=== PATIENT | male | born 1985 | race Caucasian/White ===

== ENCOUNTER → 2016-08-21 | Emergency (ER) | payer MEDICARE, MEDICAID ==
[~2016-08-21] VITALS: Ht 170.2 cm; Wt 120.2 kg
[~2016-08-21] MED LIST: ALBU17AE23 IH; ALBU8.5H4 IH; ARIP300S IM; ATEN25TA PO; BUSP10TA95 GT; CEPH-507 PO; CEPHALEXIN 250 MG (KEFLEX) CAP PO ONE; DOXY100C2 PO; ESOM20CA PO; ESOM20CA37 PO; ESOM20SU PO; FENO160T PO; INVEGA IM; LIDOCAINE 2% 20 ML (XYLOCAINE) VIAL INJ ONE; LISI10TA2 PO; MUPI22OI TP; NAPR-243 PO; OMEP5POW2 MC; PALI156D IM; PRD20T PO; SULF-222 PO; SULF1TAB35 PO; SULF1TAB7 PO; TERB30CR15 TP
--- NOTE | 2016-08-21 16:51 | ED Upper Extremity ---
General Chief Complaint: Laceration Stated Complaint: R HAND LACERATION Nursing Triage Note: PT STATES HE WAS PULLING TIN OUT OF HIS NEIGHBORS YARD AND CUT HIS RIGHT THUMB Nursing Sepsis Screen: No Definite Risk Source: patient Exam Limitations: no limitations History of Present Illness Time seen by provider: 16:48 Initial Comments To ER with a laceration to the dorsal aspect of the right thumb that occurred about 30 minutes prior to arrival while he was pulling tin out of his neighbor' s yard. Tetanus is up-to-date. Onset: just prior to arrival Severity: moderate Pain/Injury Location: right thumb Modifying Factors: Worse With Movement Allergies and Home Medications Allergies Coded Allergies: No Known Drug Allergies (Unverified , 08/21/16) Home Medications Lisinopril 10 Mg Tablet, 10 MG PO DAILY, (Reported) Omeprazole 5 Gm Powder, 5 GM MC, (Reported) Constitutional: see HPI EENTM: see HPI Respiratory: no symptoms reported Cardiovascular: no symptoms reported Genitourinary: no symptoms reported Musculoskeletal: see HPI Skin: see HPI Psychiatric/Neurological: No Symptoms Reported Past Axdyfgc-Vjmnck-Vzsznu Hx Patient Social History Recent Foreign Travel: No Contact w/Someone Who Travel: No Recent Infectious Disease Expo: No Immunizations Up To Date Tetanus Booster (TDap): Less than 5yrs Surgeries HX Surgeries: Yes Surgeries: Orthopedic Respiratory Hx Respiratory Disorders: Yes Respiratory Disorders: Emphysema Cardiovascular Hx Cardiac Disorders: Yes Cardiac Disorders: High Cholesterol, Hypertension Neurological Hx Neurological Disorders: No Reproductive System Hx Reproductive Disorders: No Sexually Transmitted Disease: No HIV/AIDS: No Genitourinary Hx Genitourinary Disorders: No Gastrointestinal Hx Gastrointestinal Disorders: Yes Gastrointestinal Disorders: Gastroesophageal Reflux, Ulcer Musculoskeletal Hx Musculoskeletal Disorders: No Endocrine Hx Endocrine Disorders: No HEENT HX ENT Disorders: No Cancer Hx Cancer: No Psychosocial Hx Psychiatric Problems: No (has delusions that [employer] injected him w/HIV) Behavioral Health Disorders: Schizophrenia Integumentary HX Skin/Integumentary Disorder: No Blood Transfusions Hx Blood Disorders: No Family Medical History Significant Family History: No Pertinent Family Hx Family Medial History: Diabetes mellitus Maternal Grandfather, Onset:Unknown FH: heart disease Maternal Grandfather, Onset:Unknown Gout Maternal Grandfather, Onset:Unknown Hypertension Maternal Grandfather, Onset:Unknown Uncle, Onset:Unknown Physical Exam Vital Signs Vital Sign - Last 12Hours 08/21/16 16:44 Temp 98.2 Pulse 111 Resp 20 B/P (MAP) 135/81 Pulse Ox 97 O2 Delivery Room Air Capillary Refill : Less Than 3 Seconds General Appearance: WD/WN, no apparent distress HEENT: PERRL/EOMI, normal ENT inspection Neck: non-tender, full range of motion Respiratory: normal breath sounds, no respiratory distress, no accessory muscle use Gastrointestinal: non tender, soft Shoulder: normal inspection, non-tender Elbow/Forearm: normal inspection, Right Wrist: Yes normal inspection, Yes non-tender Hand: Right, laceration (2 cm laceration to the dorsal aspect of the right thumb. This does cross the IP joint. No injury to the nail. This will require suturing. He is able to fully flex and extend the thumb.) Neurologic/Psychiatric: alert, normal mood/affect, oriented x 3 Skin: normal color, warm/dry Laceration Repair : Wound Location: Upper Extremities Wound Length (cm): 2.5 Wound's Depth, Shape: irregular, sub Q Irrigated w/ Saline (ccs): 30 Suture: Prolene Suture Size: 4-0 Number of Sutures: 5 Layer Closure?: 1 Number Deep Layer Sutures: 0 Progress Anesthetized, scrubbed with chlorhexidine/saline solution then irrigated with the same, then closed with 5 simple a ruptured sutures size 4-0 Prolene. Progress/Results/Core Measures Results/Orders My Orders Orders - KJ YANG APRN Lidocaine 2% Injection 20 Ml (Xylocaine (08/21/16 17:00) Cephalexin Capsule (Keflex Capsule) (08/21/16 17:00) Vital Signs/I&O Vital Sign - Last 12Hours 08/21/16 16:44 Temp 98.2 Pulse 111 Resp 20 B/P (MAP) 135/81 Pulse Ox 97 O2 Delivery Room Air Blood Pressure Mean: 99 Departure Impression Impression: Primary Impression: Finger laceration Disposition: 01 HOME, SELF-CARE Condition: Stable Departure-Patient Inst. Decision time for Depature: 16:50 Referrals: NO,LOCAL PHYSICIAN (PCP/Family) Primary Care Physician Patient Instructions: Laceration Repair With Stitches (DC) Add. Discharge Instructions: 1. Return to ER to have the stitches removed in 10 days 2. Antibiotics as directed 3. Follow-up with your doctor next week 4. You may get the hand wet allowing water to run over it in the sink starting tomorrow. However do not soak it in water such as a bathtub, swimming pool, [place] or hot tub until the stitches have been removed All discharge instructions reviewed with patient and/or family. Voiced understanding. Scripts Esomeprazole Magnesium (Esomeprazole Magnesium) 20 Mg Capsule.dr 20 MG PO DAILY, #14 CAP Prov: KJ YANG APRN 08/21/16 Lisinopril (Lisinopril) 10 Mg Tablet 10 MG PO DAILY, #14 TAB Prov: KJ YANG APRN 08/21/16 Cephalexin (Keflex) 500 Mg Capsule 500 MG PO TID, #15 CAP Prov: KJ YANG APRN 08/21/16 KJ YANG APRN August 21, 2016 16:51
[2016-08-21 17:01] VITALS: BP 130/87
== END | disposition home or self-care (01) ==
LOC: EDUNIT# 16:36 → ER 16:38
DX: S61.012A Laceration without foreign body of left thumb without damage to nail, initial encounter (principal); W45.8XXA Other foreign body or object entering through skin, initial encounter; Y92.017 Garden or yard in single-family (private) house as the place of occurrence of the external cause; Y99.8 Other external cause status

== ENCOUNTER 2016-08-29 21:35 | Emergency (ER) | payer MEDICAID, MEDICARE ==
[~2016-08-29] VITALS: Ht 172.7 cm; Wt 117.9 kg
[~2016-08-29 21:35] MED LIST changes: -CEPHALEXIN 250 MG (KEFLEX) CAP PO ONE; -LIDOCAINE 2% 20 ML (XYLOCAINE) VIAL INJ ONE
[2016-08-29] MEDS ORDERED: CLIN150C17 PO (21:59)
[2016-08-29] MEDS ORDERED: TERBIN250T PO (22:00)
--- NOTE | 2016-08-29 22:01 | ED Integumentary General ---
General Chief Complaint: Skin/Wound Problems Stated Complaint: REMOVING OF STICHES Nursing Triage Note: PT TO ED 8 W/ C/O POSSIBLE ABSCESSES TO BILAT GROIN AREA ONSET "FOR A YEAR AND A HALF". PT REPORTS HAS BEEN SEEN HERE FOR SAME C/O IN PAST BUT DENIES F/U W/ PCP. ALSO REPORTS HE HAS SUTURES THAT NEED REMOVED BUT HE STATES HE "CAN DO THAT HIMSELF" Source: patient, RN notes reviewed Exam Limitations: no limitations History of Present Illness Time seen by provider: 21:45 Initial Comments Patient presents initially to have his stitches removed from his right thumb that were placed approximately 9 days ago. While here, patient wants to have some lumps checked that he has had for a year and half in his B/L groin area. Had what sounded like an abscess I&D's here in past. States it can't be a STD because he hasn't had sexual relations in over 5 years. Denies a penile discharge. Timing/Duration: other (as above) Possible Cause: no cause identified Associated Symptoms: swelling/mass/lumps Allergies and Home Medications Allergies Coded Allergies: No Known Drug Allergies (Unverified , 08/21/16) Home Medications Cephalexin 500 Mg Capsule, 500 MG PO TID, #15 Prescribed by: KJ YANG on 08/21/16 1702 Clindamycin HCl 150 Mg Capsule, 300 MG PO QID, #80 Ref 0 Prescribed by: INDER WILSON on 08/29/162158 Esomeprazole Magnesium 20 Mg Capsule.dr, 20 MG PO DAILY, #14 Prescribed by: KJ YANG on 08/21/16 1702 Lisinopril 10 Mg Tablet, 10 MG PO DAILY, (Reported) Lisinopril 10 Mg Tablet, 10 MG PO DAILY, #14 Prescribed by: KJ YANG on 08/21/16 1702 Omeprazole 5 Gm Powder, 5 GM MC, (Reported) Terbinafine 250 Mg Tab, 250 MG PO DAILY, #7 Ref 00 Prescribed by: INDER WILSON on 08/29/160 Constitutional: see HPI Genitourinary: see HPI, other (knots/lumps in his B/L groin region) Skin: see HPI, other (healing laceration right thumb) All Other Systems Reviewed Negative Unless Noted: Yes (Negative excepted noted.) Past Qeqlbav-Udyiwg-Wuedwo Hx Patient Social History Alcohol Use: Denies Use Recreational Drug Use: No (etoh) Smoking Status: Current Everyday Smoker Type Used: Cigars 2nd Hand Smoke Exposure: Yes Recent Foreign Travel: No Contact w/Someone Who Travel: No Recent Infectious Disease Expo: No Recent Hopitalizations: No Immunizations Up To Date Tetanus Booster (TDap): Less than 5yrs Seasonal Allergies Seasonal Allergies: No Surgeries HX Surgeries: Yes Surgeries: Orthopedic Respiratory Hx Respiratory Disorders: Yes Respiratory Disorders: Emphysema Cardiovascular Hx Cardiac Disorders: Yes Cardiac Disorders: Hypertension Neurological Hx Neurological Disorders: No Reproductive System Hx Reproductive Disorders: No Sexually Transmitted Disease: No HIV/AIDS: No Genitourinary Hx Genitourinary Disorders: No Gastrointestinal Hx Gastrointestinal Disorders: Yes Gastrointestinal Disorders: Gastroesophageal Reflux, Ulcer Musculoskeletal Hx Musculoskeletal Disorders: No Endocrine Hx Endocrine Disorders: No HEENT HX ENT Disorders: No Cancer Hx Cancer: No Psychosocial Hx Psychiatric Problems: No (has delusions that [employer] injected him w/HIV) Behavioral Health Disorders: Schizophrenia Integumentary HX Skin/Integumentary Disorder: No Blood Transfusions Hx Blood Disorders: No Family Medical History Significant Family History: No Pertinent Family Hx Family Medial History: Diabetes mellitus Maternal Grandfather, Onset:Unknown FH: heart disease Maternal Grandfather, Onset:Unknown Gout Maternal Grandfather, Onset:Unknown Hypertension Maternal Grandfather, Onset:Unknown Uncle, Onset:Unknown Physical Exam Vital Signs Vital Sign - Last 12Hours 08/29/16 21:39 Temp 98.0 Pulse 133 Resp 24 Pulse Ox 99 O2 Delivery Room Air Capillary Refill : Less Than 3 Seconds General Appearance: WD/WN, no apparent distress Cardiovascular: tachycardia Respiratory: no respiratory distress Neurologic/Psychiatric: no motor/sensory deficits, alert, other (almost seemed manic, or tweaking) Skin: other (laceration appears to be red and quite possibly infected. Going to wait to take the sutures out until he's been on some antibiotics for awhile.) Skin Problem Location: other (groin area) Skin Problem Character: other (findings consistent c/ inguinal adenopathy; also appears to have moderate tinea cruris present; hygiene is fair @ best) Lymphatic: inguinal node tender (R), inguinal node tender (L) Laceration Repair : Suture Size: 4-0 Progress/Results/Core Measures Results/Orders Vital Signs/I&O Vital Sign - Last 12Hours 08/29/16 08/29/16 21:39 22:10 Temp 98.0 Pulse 133 0 Resp 24 0 B/P (MAP) Pulse Ox 99 0 O2 Delivery Room Air Departure Impression Impression: Primary Impression: Inguinal adenopathy Additional Impressions: Tinea cruris Laceration Disposition: HOME, SELF-CARE Condition: Stable Departure-Patient Inst. Decision time for Depature: 21:56 Referrals: BAYLEE BLACKMON MD Patient Instructions: Jock Itch (DC), LYMPH NODE INFECTION, Laceration Infection (DC) Add. Discharge Instructions: All discharge instructions reviewed with patient and/or family. Voiced understanding. RETURN IN 5 DAYS TO HAVE YOUR THUMB LACERATION RECHECKED TO SEE IF CAN REMOVE YOUR STITCHES @ THAT TIME. Scripts Terbinafine (Lamisil) 250 Mg Tab 250 MG PO DAILY, #7 TAB 00 Refills Prov: INDER WILSON DO 08/29/16 Clindamycin HCl (Clindamycin HCl) 150 Mg Capsule 300 MG PO QID, #80 CAP 0 Refills Prov: INDER WILSON DO 08/29/16 INDER WILSON DO August 29, 2016 22:01
[2016-08-29 22:10] VITALS: BP 0/0
== END 2016-08-29 22:10 | disposition home or self-care (01) ==
LOC: EDUNIT# 21:35 → ER 21:38
DX: R59.0 Localized enlarged lymph nodes (principal); B35.6 Tinea cruris; S61.011D Laceration without foreign body of right thumb without damage to nail, subsequent encounter; I10 Essential (primary) hypertension; F17.210 Nicotine dependence, cigarettes, uncomplicated; Z79.899 Other long term (current) drug therapy
CPT/HCPCS: 99281

== ENCOUNTER 2017-03-10 14:53 | Emergency (ER) | payer MEDICARE ==
[~2017-03-10] VITALS: Ht 172.7 cm; Wt 117.9 kg
[~2017-03-10 14:53] MED LIST changes: +CLIN150C17 PO; +HALDOL; +NAPR500T4 PO; +TERBIN250T PO
--- OUTSIDE RECORDS SUMMARY | 2017-03-10 15:00 | XMS REPORT | Continuity of Care Document ---
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 Phone [employer] Unavailable Unavailable Problems Problem Status Onset Date Classification Date Reported Comments Source No data available for this section Problem 09/26/2016 [facility] Medications Allergies, Adverse Reactions, Alerts Immunizations Immunization Date Given Site Status Last Updated Comments Source No data available for this section No data available for this section [facility] Results Vital Signs Encounters Location Location Details Encounter Type Encounter Number Reason For Visit Attending Provider ADM Date DC Date Status Source [facility] [id number] Emergency [id number] Osama Olvin 09/21/2016 09/21/2016 Active [facility] Procedures Procedure Code Date Perfomer Comments Source No data available for this section [facility] Plan of Care Social History Assessment and Plan Family History Value Date Source Advance Directives Order Name Results Value Date Source
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
[2017-03-10] MEDS ORDERED: CEPH-507 PO (15:12)
[2017-03-10] MEDS ORDERED: CEPHALEXIN 250 MG (KEFLEX) CAP PO ONE (15:15)
[2017-03-10] MEDS ORDERED: ALPRAZolam 0.5 MG (XANAX) TAB PO SCH (15:15)
[2017-03-10 15:21] VITALS: BP 197/103
== END 2017-03-10 15:21 | disposition home or self-care (01) ==
LOC: EDUNIT# 14:53 → ER 14:55
DX: S00.03XA Contusion of scalp, initial encounter (principal); F20.9 Schizophrenia, unspecified; K21.9 Gastro-esophageal reflux disease without esophagitis; I10 Essential (primary) hypertension; Z87.11 Personal history of peptic ulcer disease; Z77.22 Contact with and (suspected) exposure to environmental tobacco smoke (acute) (chronic); Y00.XXXA Assault by blunt object, initial encounter
CPT/HCPCS: 99283

== ENCOUNTER 2017-03-21 14:11 | Emergency (ER) | payer MEDICARE ==
[~2017-03-21] VITALS: Ht 172.7 cm; Wt 117.9 kg
--- OUTSIDE RECORDS SUMMARY | 2017-03-21 14:17 | XMS REPORT | Continuity of Care Document ---
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 Medications Allergies, Adverse Reactions, Alerts Immunizations Immunization Date Given Site Status Last Updated Comments Source No data available for this section No data available for this section [facility] Results Vital Signs Encounters Location Location Details Encounter Type Encounter Number Reason For Visit Attending Provider ADM Date DC Date Status Source [facility] [id number] Emergency [id number] Osama Olvin 09/21/2016 09/21/2016 Active [facility] Procedures Procedure Code Date Perfomer Comments Source No data available for this section [facility] Plan of Care Social History Assessment and Plan Family History Value Date Source Advance Directives Order Name Results Value Date Source
[2017-03-21 14:58] VITALS: BP 147/82
[2017-03-21] MEDS ORDERED: SULF1TAB35 PO (14:58)
--- NOTE | 2017-03-21 14:58 | ED Suture Removal/Wound Check ---
Suture/Wound Re-check Suture Removal/Wound Recheck : Progress Patient presents to the emergency department for suture and staple removal. Denies complaints of pain, fever, chills, or redness. Physical Exam Vital Signs Vital Sign - Last 12Hours 03/21/17 03/21/17 14:44 14:58 Temp 98.5 Pulse 101 Resp 18 B/P (MAP) 147/82 Pulse Ox 97 O2 Delivery Room Air Capillary Refill : General Appearance: WD/WN, no apparent distress Neurologic/Psychiatric: alert, normal mood/affect, oriented x 3 Skin: normal color, warm/dry, other (all lacerations intact of the forehead and scalp. left superior scalp does show a very small amount of pus when the staple was removed. ) Departure Communication (Admissions) Progress Notes Patient seen and evaluated. Patient given a prescription for Bactrim with instructions to follow-up with his primary care provider for recheck as an outpatient. Patient to return to the emergency department for worsened symptoms or any other concerns. Impression Impression: Primary Impression: Abscess or cellulitis of scalp Additional Impressions: Removal of gunjan Visit for suture removal Disposition: 01 HOME, SELF-CARE Condition: Improved Departure-Patient Inst. Decision time for Depature: 14:57 Referrals: NO,LOCAL PHYSICIAN (PCP/Family) Primary Care Physician Patient Instructions: SUTURE REMOVAL - UNCOMPLICATED, STAPLE REMOVAL - UNCOMPLICATED Add. Discharge Instructions: All discharge instructions reviewed with patient and/or family. Voiced understanding. Medications as instructed. Continue usual home medications. Shower with antibacterial soap. Follow-up with your family practitioner recheck as an outpatient early next week, call for appointment time. Return to the emergency department for worsened symptoms or any other concerns. Scripts Sulfamethoxazole/Trimethoprim (Bactrim Ds Tablet) 1 Each Tablet 1 EACH PO BID, #14 TAB 0 Refills Prov: LEX ZEPEDA 03/21/17 LEX ZEPEDA Mar 21, 2017 14:58
== END 2017-03-21 14:59 | disposition home or self-care (01) ==
LOC: EDUNIT# 14:11 → ER 14:13
DX: T81.4XXA Infection following a procedure, initial encounter (principal); S01.01XD Laceration without foreign body of scalp, subsequent encounter; S01.81XD Laceration without foreign body of other part of head, subsequent encounter; X58.XXXD Exposure to other specified factors, subsequent encounter

== ENCOUNTER 2017-06-20 03:38 | Emergency (ER) | payer MEDICARE ==
[~2017-06-20] VITALS: Ht 172.7 cm; Wt 117.9 kg
[~2017-06-20 03:38] MED LIST changes: +NAPR-915 PO; -NAPR500T4 PO
[2017-06-20 04:23] VITALS: BP 119/64
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
[2017-06-20] MEDS ORDERED: LACTATED RINGERS 1,000 ML IV ONE (04:51)
[2017-06-20] MEDS ORDERED: fentaNYL INJECTION 100 MCG/2 ML AMP IVP ONE (05:00)
[2017-06-20] MEDS ORDERED: ONDANSETRON 4 MG/2 ML (SDV) Z0FRAN IVP ONE (05:00)
[2017-06-20 05:36] LABS: BASOPHILS % (AUTO) 0 % (0-10); EOSINOPHILS # (AUTO) 0.6 10^3/uL (0.0-0.3); EOSINOPHILS % (AUTO) 4 % (0-10); HEMATOCRIT 49 % (40-54); HEMOGLOBIN 17.7 G/DL (13.3-17.7); LYMPHOCYTES # (AUTO) 2.6 X 10^3 (1.0-4.0); LYMPHOCYTES % (AUTO) 18 % (12-44); MEAN CORPUSCULAR HEMOGLOBIN 33 PG (25-34); MEAN CORPUSCULAR HGB CONC 37 G/DL (32-36); MEAN CORPUSCULAR VOLUME 91 FL (80-99); MONOCYTES % (AUTO) 7 % (0-12); NEUTROPHILS # (AUTO) 10.1 X 10^3 (1.8-7.8); NEUTROPHILS % (AUTO) 70 % (42-75); PLATELET COUNT 234 10^3/uL (130-400); RED BLOOD COUNT 5.31 10^6/uL (4.35-5.85); RED CELL DISTRIBUTION WIDTH 12.9 % (10.0-14.5); WHITE BLOOD COUNT 14.3 10^3/uL (4.3-11.0)
[2017-06-20 06:00] LABS: ALANINE AMINOTRANSFERASE 34 U/L (0-55); ALBUMIN 4.1 GM/DL (3.2-4.5); ALKALINE PHOSPHATASE 150 U/L (40-136); BILIRUBIN,TOTAL 0.7 MG/DL (0.1-1.0); BUN/CREATININE RATIO 14; CALCIUM 9.3 MG/DL (8.5-10.1); CARBON DIOXIDE 27 MMOL/L (21-32); CHLORIDE 103 MMOL/L (98-107); CREATININE SERUM 1.01 MG/DL (0.60-1.30); GFR ESTIMATED > 60; GLUCOSE 83 MG/DL (70-105); MAGNESIUM 2.2 MG/DL (1.8-2.4); POTASSIUM 4.5 MMOL/L (3.6-5.0); SODIUM 138 MMOL/L (135-145); TOTAL PROTEIN 7.3 GM/DL (6.4-8.2)
[2017-06-20 06:10] LABS: BILIRUBIN,URINE NEGATIVE (NEGATIVE); CLARITY,URINE CLEAR; COLOR,URINE YELLOW; GLUCOSE, URINE (UA) NEGATIVE (NEGATIVE); KETONES,URINE NEGATIVE (NEGATIVE); LEUKOCYTE ESTERASE ,URINE NEGATIVE (NEGATIVE); NITRITE,URINE NEGATIVE (NEGATIVE); PH,URINE 6.5 (5-9); PROTEIN,URINE NEGATIVE (NEGATIVE); UROBILINOGEN,URINE NORMAL (NORMAL)
[2017-06-20] MEDS ORDERED: IOHEXOL 350 MG/ML 100 ML (OMNIPAQUE 350) VIAL IV ONE (06:15)
[2017-06-20] MEDS ORDERED: NS 250 ML (IVPB) BAG IV ONE (06:15)
[2017-06-20 06:22] LABS: BACTERIA,URINE NEGATIVE /HPF; SQUAMOUS EPITHELIAL CELL,UR RARE /HPF
[2017-06-20 06:33] LABS: AMPHETAMINE SCREEN, URINE POSITIVE (NEGATIVE); BARBITURATE SCREEN URINE NEGATIVE (NEGATIVE); BENZODIAZEPINES SCREEN URINE NEGATIVE (NEGATIVE); CANNABINOID SCREEN, URINE NEGATIVE (NEGATIVE); COCAINE SCREEN URINE NEGATIVE (NEGATIVE); METHADONE STAT NEGATIVE (NEGATIVE); METHAMPHETAMINE SCREEN URINE S POSITIVE (NEGATIVE); OPIATE SCREEN URINE NEGATIVE (NEGATIVE); OXYCODONE STAT NEGATIVE (NEGATIVE); PROPOXYPHENE STAT NEGATIVE (NEGATIVE); TRICYCLIC ANTIDEPRESSANTS SCRE NEGATIVE (NEGATIVE)
== END 2017-06-20 06:50 | disposition left against medical advice (07) ==
LOC: EDUNIT# 03:38 → ER 03:41
DX: R10.9 Unspecified abdominal pain (principal); F15.10 Other stimulant abuse, uncomplicated; F20.9 Schizophrenia, unspecified; K21.9 Gastro-esophageal reflux disease without esophagitis; J43.9 Emphysema, unspecified; I10 Essential (primary) hypertension; Z77.22 Contact with and (suspected) exposure to environmental tobacco smoke (acute) (chronic); Z87.19 Personal history of other diseases of the digestive system
CPT/HCPCS: 36415; 80053; 80306; 81000; 83735; 85025

== ENCOUNTER 2018-03-17 13:43 | Outpatient (RCR) | payer MEDICARE | END 2018-03-26 13:16 | disposition home or self-care (01) | PROVIDERS: ATTEND Internal Medicine | DX: R53.1 Weakness (principal); G62.9 Polyneuropathy, unspecified; F20.9 Schizophrenia, unspecified ==

== ENCOUNTER 2018-04-14 19:30 | Emergency (ER) | payer MEDICARE ==
[~2018-04-14] VITALS: Ht 177.8 cm; Wt 136.1 kg
[2018-04-14] MEDS ORDERED: LACTATED RINGERS 1,000 ML IV ONE (22:01)
[2018-04-14] MEDS ORDERED: PANTOPRAZOLE 40 MG (PROTONIX) VIAL IV ONE (22:15)
[2018-04-14] MEDS ORDERED: ONDANSETRON 4 MG/2 ML (SDV) Z0FRAN IVP ONE (22:15)
[2018-04-14 22:36] LABS: BASOPHILS # (AUTO) 0.1 10^3/uL (0.0-0.1); BASOPHILS % (AUTO) 0 % (0-10); EOSINOPHILS # (AUTO) 0.2 10^3/uL (0.0-0.3); EOSINOPHILS % (AUTO) 2 % (0-10); HEMATOCRIT 49 % (40-54); HEMOGLOBIN 17.6 G/DL (13.3-17.7); LYMPHOCYTES # (AUTO) 1.6 X 10^3 (1.0-4.0); LYMPHOCYTES % (AUTO) 11 % (12-44); MEAN CORPUSCULAR HEMOGLOBIN 33 PG (25-34); MEAN CORPUSCULAR HGB CONC 36 G/DL (32-36); MEAN CORPUSCULAR VOLUME 90 FL (80-99); MEAN PLATELET VOLUME 8.9 FL (7.4-10.4); MONOCYTES # (AUTO) 1.1 X 10^3 (0.0-1.0); MONOCYTES % (AUTO) 7 % (0-12); NEUTROPHILS # (AUTO) 12.2 X 10^3 (1.8-7.8); NEUTROPHILS % (AUTO) 80 % (42-75); PLATELET COUNT 236 10^3/uL (130-400); WHITE BLOOD COUNT 15.3 10^3/uL (4.3-11.0)
[2018-04-14 22:54] LABS: ALANINE AMINOTRANSFERASE 29 U/L (0-55); ALBUMIN 4.3 GM/DL (3.2-4.5); ALKALINE PHOSPHATASE 160 U/L (40-136); AMYLASE 42 U/L (25-125); BILIRUBIN,TOTAL 0.5 MG/DL (0.1-1.0); BUN/CREATININE RATIO 14; CALCIUM 9.8 MG/DL (8.5-10.1); CARBON DIOXIDE 20 MMOL/L (21-32); CHLORIDE 104 MMOL/L (98-107); CREATININE SERUM 0.84 MG/DL (0.60-1.30); GFR ESTIMATED > 60; GLUCOSE 97 MG/DL (70-105); LIPASE 34 U/L (8-78); POTASSIUM 4.4 MMOL/L (3.6-5.0); SODIUM 140 MMOL/L (135-145); TOTAL PROTEIN 7.7 GM/DL (6.4-8.2)
[2018-04-14 22:57] LABS: BILIRUBIN,URINE NEGATIVE (NEGATIVE); CLARITY,URINE CLEAR; COLOR,URINE YELLOW; GLUCOSE, URINE (UA) NEGATIVE (NEGATIVE); KETONES,URINE NEGATIVE (NEGATIVE); LEUKOCYTE ESTERASE ,URINE NEGATIVE (NEGATIVE); NITRITE,URINE NEGATIVE (NEGATIVE); PH,URINE 7 (5-9); PROTEIN,URINE NEGATIVE (NEGATIVE); UROBILINOGEN,URINE NORMAL (NORMAL)
[2018-04-14 23:00] LABS: BAND NEUTROPHILS 0 %; BASOPHILS % (MANUAL) 0 %; EOSINOPHILS % (MANUAL) 3 %; LYMPHOCYTES % (MANUAL) 12 %; MONOCYTES % (MANUAL) 5 %; NEUTROPHILS % (MANUAL) 80 %; RBC MORPH NORMAL
[2018-04-14] MEDS ORDERED: KETOROLAC 30 MG/ML VIAL IVP ONE (23:00)
[2018-04-14] MEDS ORDERED: HYOSCYAMINE 0.125 MG (LEVSIN) TAB PO ONE (23:00)
[2018-04-14 23:05] LABS: BACTERIA,URINE NEGATIVE /HPF; WBC,URINE RARE /HPF
[2018-04-14 23:07] LABS: AMPHETAMINE SCREEN, URINE NEGATIVE (NEGATIVE); BARBITURATE SCREEN URINE NEGATIVE (NEGATIVE); BENZODIAZEPINES SCREEN URINE NEGATIVE (NEGATIVE); CANNABINOID SCREEN, URINE NEGATIVE (NEGATIVE); COCAINE SCREEN URINE NEGATIVE (NEGATIVE); METHADONE STAT NEGATIVE (NEGATIVE); METHAMPHETAMINE SCREEN URINE S NEGATIVE (NEGATIVE); OPIATE SCREEN URINE NEGATIVE (NEGATIVE); OXYCODONE STAT NEGATIVE (NEGATIVE); PROPOXYPHENE STAT NEGATIVE (NEGATIVE); TRICYCLIC ANTIDEPRESSANTS SCRE NEGATIVE (NEGATIVE)
--- NOTE | 2018-04-14 23:25 | NUR ---
report given to breanna alamo
--- NOTE | 2018-04-14 23:29 | NUR ---
ASSUMED PRIMARY NURSE ROLE
[2018-04-15] MEDS ORDERED: NS 100 ML (IVPB) BAG IV ONE
[2018-04-15] MEDS ORDERED: IOHEXOL 350 MG/ML 100 ML (OMNIPAQUE 350) VIAL IV ONE
[2018-04-15] MEDS ORDERED: RECEIVED CONTRAST (Hold Metformin) IV SCH
[2018-04-15] MEDS ORDERED: RX-ONDANSETRON 4 MG ODT (ZOFRAN) PPK #4 PO STA (00:16)
[2018-04-15] MEDS ORDERED: RX-HYOSCYAMINE 0.125 MG SL (LEVSIN) PPK#6 SL STA (00:16)
[2018-04-15] MEDS ORDERED: HYOS0.1283 SL (00:21)
[2018-04-15] MEDS ORDERED: PANT40TA2 PO (00:21)
[2018-04-15] MEDS ORDERED: ONDA4TAB11 PO (00:21)
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
[2018-04-15] MEDS ORDERED: ONDANSETRON 4 MG/2 ML (SDV) Z0FRAN IVP ONE (00:30)
[2018-04-15 00:50] VITALS: BP 166/90
--- NOTE | 2018-04-15 06:48 | Diagnostic Imaging Report ---
PROCEDURE: CT abdomen and pelvis with contrast. TECHNIQUE: Multiple contiguous axial images were obtained through the abdomen and pelvis after administration of intravenous contrast. INDICATION: Abdominal pain. FINDINGS: The heart size is normal. The lung bases are clear. The liver is normal in size without focal lesions. There may be some minimal gallbladder sludge. No biliary ductal dilatation. No cholelithiasis. Spleen is normal. Pancreas and adrenal glands are unremarkable. Kidneys are normal in appearance. Aorta is nonaneurysmal. Bowel gas pattern is nonspecific. There is no free air. There is no ascites. No focal inflammatory changes. Bladder is unremarkable. There is no pelvic mass, adenopathy or free fluid. The osseous structures are unremarkable. IMPRESSION: Questionable small amount of gallbladder sludge. Recommend clinical correlation. If warranted, followup with right upper quadrant ultrasound. Otherwise unremarkable CT abdomen pelvis. Dictated by: Dictated on workstation # [id number]
--- NOTE | 2018-04-15 06:55 | Diagnostic Imaging Report ---
INDICATION: Abdominal pain. Three views were obtained. FINDINGS: The heart size is normal. The lung bases are clear. Bowel gas pattern is nonspecific. There is no free air. There are no abnormal abdominal calcifications. IMPRESSION: No acute cardiopulmonary abnormality. Nonspecific bowel gas pattern. Dictated by: Dictated on workstation # [id number]
== END 2018-04-15 00:49 | disposition home or self-care (01) ==
LOC: EDUNIT# 19:30 → ER 19:31
DX: R10.10 Upper abdominal pain, unspecified (principal); J43.9 Emphysema, unspecified; I10 Essential (primary) hypertension; K21.9 Gastro-esophageal reflux disease without esophagitis; F20.9 Schizophrenia, unspecified; Z87.19 Personal history of other diseases of the digestive system; Z77.22 Contact with and (suspected) exposure to environmental tobacco smoke (acute) (chronic); Z82.49 Family history of ischemic heart disease and other diseases of the circulatory system
CPT/HCPCS: 36415; 74022; 74177; 80053; 80306; 80320; 81000; 82150; 83690; 85007; 85027

== ENCOUNTER 2018-04-27 00:58 | Emergency (ER) | payer MEDICARE ==
[~2018-04-27] VITALS: Ht 180.3 cm; Wt 117.9 kg
[~2018-04-27 00:58] MED LIST changes: +HYOS0.1283 SL; +ONDA4TAB11 PO; +PANT40TA2 PO
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
--- OUTSIDE RECORDS SUMMARY | 2018-04-27 01:04 | XMS REPORT ---
Author Author MARVIN DHILLON Organization [facility] Address [address] [place] [address] Care Team Providers Care Credit Support Specialist Name Role Phone MARVIN DHILLON Unavailable PROBLEMS Type Condition ICD9-CM Code [id number] Code Onset Dates Condition Status SNOMED Code Problem Other chronic pain G89.29 Active 56550767 Problem Pain in thoracic spine M54.6 Active 745364517386827 Problem Hypercholesterolemia E78.00 Active 78689479 Problem Unspecified mood [affective] disorder F39 Active 64655428 Problem Sprain of right shoulder, unspecified shoulder sprain type, initial encounter S43.401A Active 2884958 Problem Schizophrenia, unspecified type F20.9 Active 91767187 ALLERGIES No Information ENCOUNTERS Encounter Location Date Diagnosis [facility] [id number] [place] [address] 57565- 4381 Mar, [facility] [id number] [place] [address] 38966- 0821 Mar, [facility] [id number] [place] [address] 36478- 9320 Feb, Severe muscle deconditioning R29.898 ; Pain in right hand M79.641 ; Pain of left hand M79.642 and Schizophrenia, unspecified type F20.9 [facility] [address] [place] [address] 32649- 6577 Jan, [facility] [id number] [place] [address] 00577- 0059 Nov, Unspecified mood [affective] disorder F39 and Schizophrenia , unspecified type F20.9 [facility] [address] [place] [address] 64051- 1180 Oct, Schizophrenia, unspecified type F20.9 [facility] [address] [place] [address] 76292- 6876 Sep, Unspecified mood [affective] disorder F39 and Schizophrenia , unspecified type F20.9 [facility] [id number] [place] [address] 64812- 3977 August, Schizophrenia, unspecified type F20.9 [facility] [id number] [place] [address] 08149- 3378 August, Sprain of right shoulder, unspecified shoulder sprain type, initial encounter S43.401A ; Pain in thoracic spine M54.6 and Other chronic pain G89.29 [facility] [id number] [place] [address] 24684- 5213 Jul, Schizophrenia, unspecified type F20.9 [facility] [id number] [place] [address] 61377- 5908 Jun, [facility] [id number] [place] [address] 69049- 6558 Jun, Unspecified mood [affective] disorder F39 and Schizophrenia , unspecified type F20.9 [facility] [id number] [place] [address] 69106- 0640 May, Schizophrenia, unspecified type F20.9 and Unspecified mood [ affective] disorder F39 [facility] [id number] [place] [address] 34152- 1475 Apr, Schizophrenia, unspecified type F20.9 and Unspecified mood [ affective] disorder F39 [facility] [id number] [place] [address] 49070 -3294 Sep, [facility] [id number] [place] [address] 36899- 9380 Apr, Unspecified mood [affective] disorder F39 and Schizophrenia , unspecified type F20.9 [facility] [id number] [place] [address] 07207- 2615 Apr, Unspecified mood [affective] disorder F39 ; Essential hypertension I10 ; Gastroesophageal reflux disease, esophagitis presence not specified K21.9 and Hypercholesterolemia E78.00 [facility] [id number] [place] [address] 36976- 1030 Feb, Unspecified mood [affective] disorder F39 [facility] [id number] [place] [address] 14874- 6293 Jan, Unspecified mood [affective] disorder F39 [facility] [id number] [place] [address] 00914- 6814 Feb, Abscess L02.91 [facility] [id number] [place] [address] 49390- 8135 Jul, [facility] [id number] [place] [address] 43448- 8109 Jul, [facility] [id number] [place] [address] 28420- 0385 Jun, [facility] [id number] [place] [address] 65116- 9017 Jun, [facility] [id number] [place] [address] 30638- 4468 Dec, [facility] [id number] [place] [address] 32496- 8617 Dec, [facility] [id number] [place] [address] 01227- 9948 Dec, [facility] [id number] [place] [address] 83519- 9801 Dec, [facility] [id number] [place] [address] 21377- 8121 August, [facility] [id number] [place] [address] 72931- 7789 August, [facility] [id number] [place] [address] 57024- 8664 August, [facility] [address] [id number] [place] [address]- 6727 August, [facility] [place] [facility] [address] [id number] [place] [address]- 6011 Jun, [facility] [place] [facility] [address] [id number] [place] [address]- 8433 Jun, [facility] [place] [facility] [address] [id number] [place] [address]- 6297 Jun, [facility] [place] [facility] [address] [id number] [place] [address]- 8603 Jun, [facility] [place] [facility] [address] [id number] [place] [address]- 2450 Jan, [facility] [address] [id number] [place] [address]- 5888 Jan, [facility] [place] [facility] [address] [id number] [place] [address]- 5812 Sep, [facility] [place] [facility] [address] [id number] [place] [address]- 1546 Jun, [facility] [place] [facility] [address] [id number] [place] [address]- 1238 Jun, [facility] [place] [facility] [address] [id number] [place] [address]- 9022 30 Jul, 2011 [facility] [place] [facility] [address] [id number] [place] [address]- 6372 Jul, [facility] [place] [facility] [address] [id number] [place] [address]- 9567 Jul, [facility] [place] [facility] [address] [id number] [place] [address]- 6823 Jul, [facility] [place] [facility] [address] [id number] [place] [address]- 7043 Jul, [facility] [place] [facility] [id number] [address]- 4246 Jun, [facility] [id number] [address]- 5766 Jun, [facility] [id number] [address]- 6346 Jun, [facility] [id number] [address]- 3405 Jun, [facility] [id number] [address]- 7231 Apr, [facility] [id number] [address]- 2999 Apr, [facility] [address] [place] [address]- 6016 Mar, [facility] [id number] [address]- 4396 Mar, [facility] [address] [facility] [id number] [address]- 6056 Mar, IMMUNIZATIONS Vaccine Route Administration Date Status HALDOL 100 MG/ML (PT'S OWN) IM Intramuscular Mar 23, 2018 Administered SOCIAL HISTORY Never Assessed REASON FOR VISIT [facility]ARE VITAL SIGNS MEDICATIONS Unknown Medications RESULTS No Results PROCEDURES Procedure Date Ordered Result Body Site HALDOL 100 MG/ML (PT'S OWN) Mar 23, 2018 THER/PROPH/DIAG INJ, SC/IM Mar 23, 2018 INSTRUCTIONS MEDICATIONS ADMINISTERED No Known Medications MEDICAL (GENERAL) HISTORY Type Description Date Medical History schizophrenia Medical History anxiety Surgical History knee surgery 2000 Surgical History throat surgery 2013 Hospitalization History multiple stays for infection in R. 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
--- OUTSIDE RECORDS SUMMARY | 2018-04-27 01:04 | XMS REPORT ---
Author Author JOSH GORDON [facility] Address [address] [place] [address] Care Team Providers Care Financial Rep Name Role Phone JOSH GORDON Unavailable PROBLEMS Type Condition ICD9-CM Code VXG86-WO Code Onset Dates Condition Status SNOMED Code Problem Other chronic pain G89.29 Active 15539685 Problem Pain in thoracic spine M54.6 Active 561055347053370 Problem Hypercholesterolemia E78.00 Active 18427655 Problem Unspecified mood [affective] disorder F39 Active 92667449 Problem Sprain of right shoulder, unspecified shoulder sprain type, initial encounter S43.401A Active 9279630 Problem Schizophrenia, unspecified type F20.9 Active 41183651 ALLERGIES No Information ENCOUNTERS Encounter Location Date Diagnosis [place] [address] [address]- 110[address] Feb, [place] [address] 59106- 8253 Jan, [place] [address] 86605- 0288 Nov, Unspecified mood [affective] disorder F39 and Schizophrenia , unspecified type F20.9 [facility] [address] [place] [id number] [place] [address] 15136- 1903 Oct, Schizophrenia, unspecified type F20.9 [place] [address] 91947- 0710 Sep, Unspecified mood [affective] disorder F39 and Schizophrenia , unspecified type F20.9 [place] [address] 49053- 3844 August, Schizophrenia, unspecified type F20.9 [place] [address] [place] [id number] [place] [address] 05423- 2813 August, Sprain of right shoulder, unspecified shoulder sprain type, initial encounter S43.401A ; Pain in thoracic spine M54.6 and Other chronic pain G89.29 [facility] [address] [id number] [place] [address] 02769- 5522 Jul, Schizophrenia, unspecified type F20.9 [facility] [address] [id number] [place] [address] 81496- 1231 Jun, [place] [address] [place] [id number] [place] [address] 28045- 1626 Jun, Unspecified mood [affective] disorder F39 and Schizophrenia , unspecified type F20.9 [place] [address] [place] [id number] [place] [address] 77750- 2266 May, Schizophrenia, unspecified type F20.9 and Unspecified mood [ affective] disorder F39 [facility] [address] [place] [id number] [place] [address] 26221- 8524 Apr, Schizophrenia, unspecified type F20.9 and Unspecified mood [ affective] disorder F39 [facility] [address] [place] [address] [id number] [place] [address] 31138 -8669 Sep, [facility] [address] [place] [address] [id number] [place] [address] 82917- 8582 Apr, Unspecified mood [affective] disorder F39 and Schizophrenia , unspecified type F20.9 [facility] [address] [place] [id number] [place] [address] 53992- 1569 Apr, Unspecified mood [affective] disorder F39 ; Essential hypertension I10 ; Gastroesophageal reflux disease, esophagitis presence not specified K21.9 and Hypercholesterolemia E78.00 [facility] [address] [place] [address] [id number] [place] [address] 78252- 8153 Feb, Unspecified mood [affective] disorder F39 [facility] [address] [place] [address] [id number] [place] [address] 50215- 7032 Jan, Unspecified mood [affective] disorder F39 [facility] [address] [address] 5905 Feb, Abscess L02.91 [facility] [address] [facility] [id number] [place] [address]- 1016 14 Jul, 2014 [facility] [address] [place] [id number] [place] [address], [place] [address]- 7389 Jul, [facility] [address] [facility] [id number] [place] [address]- 6653 Jun, [facility] [id number] [place] [address], [place] [address]- 2913 Jun, [facility] [address] [place] [address]- 3261 Dec, [facility] [address] [place] [id number] [place] [address]- 4464 Dec, [facility] [id number] [place] [address]- 0963 Dec, [facility] [address] [address]- 8860 Dec, [facility] [address] [address]- 6044 August, [facility] [address] [place] [id number] [address]- 1147 August, [facility] [address] [place] [id number] [address]- 5081 August, [facility] [address] [place] [id number] [place] [address]- 6969 August, [facility] [address] [facility] [id number] [address]- 6134 Jun, [facility] [address] [address]- 9613 Jun, 2013 [facility] [place] [facility] [address] [id number] [place] [address]- 9644 13 Jun, 2013 [facility] [place] [facility] [address] [id number] [place] [address]- 1876 13 Jun, 2013 [facility] [place] [facility] [address] [id number] [place] [address]- 7285 Jan, [facility] [place] [facility] [address] [id number] [place] [address]- 1280 28 Jan, 2013 [facility] [place] [facility] [address] [id number] [place] [address]- 0284 10 Sep, 2012 [facility] [place] [facility] [address] [id number] [place] [address]- 5487 22 Jun, 2012 [facility] [place] [facility] [address] [id number] [place] [address]- 7599 Jun, [facility] [place] [facility] [address] [id number] [place] [address]- 4893 30 Jul, 2011 [facility] [place] [facility] [address] [id number] [place] [address]- 2205 Jul, [facility] [place] [facility] [address] [id number] [place] [address]- 9182 Jul, [facility] [place] [facility] [address] [id number] [place] [address]- 5101 Jul, [facility] [place] [facility] [address] [id number] [address]- 6567 04 Jul, 2011 [facility] [place] [facility] [address] [id number] [place] [address]- 7972 27 Jun, 2011 [facility] [place] [facility] [address] [id number] [place] [address]- 9335 13 Jun, 2011 [facility] [place] [facility] [address] [id number] [place] [address]- 7534 Jun, [facility] [place] [facility] [address] [facility] [id number] [place] [address] 2546 Jun, [facility] [address] [place] [id number] [address]- 9185 Apr, [facility] [address] [place] [address] [id number] [address]- 3796 Apr, [facility] [address] [place] [id number] [address]- 2907 Mar, [facility] [address] [place] [id number] [address]- 5965 Mar, [facility] [address] [place] [id number] [address]- 9055 Mar, IMMUNIZATIONS No Known Immunizations SOCIAL HISTORY Never Assessed REASON FOR VISIT Medication question PLAN OF CARE VITAL SIGNS MEDICATIONS Unknown Medications RESULTS No Results PROCEDURES No Known procedures INSTRUCTIONS MEDICATIONS ADMINISTERED No Known Medications MEDICAL (GENERAL) HISTORY Type Description Date Medical History schizophrenia Medical History anxiety Surgical History knee surgery 2000 Surgical History throat surgery 2013 Hospitalization History multiple stays for infection in R. 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
--- OUTSIDE RECORDS SUMMARY | 2018-04-27 01:04 | XMS REPORT ---
Author Author MARVIN DHILLON Organization [facility] Address [address] [place] [address] Care Team Providers Care Aviation Project Manager Name Role Phone MARVIN DHILLON Unavailable PROBLEMS Type Condition ICD9-CM Code OPB11-PS Code Onset Dates Condition Status SNOMED Code Problem Other chronic pain G89.29 Active 57604959 Problem Pain in thoracic spine M54.6 Active 999791624642439 Problem Hypercholesterolemia E78.00 Active 85045439 Problem Unspecified mood [affective] disorder F39 Active 73185517 Problem Sprain of right shoulder, unspecified shoulder sprain type, initial encounter S43.401A Active 1085174 Problem Schizophrenia, unspecified type F20.9 Active 93784186 ALLERGIES No Known Allergies ENCOUNTERS Encounter Location Date Diagnosis [place] [address] [place] [id number] [place] [address] 80653- 1317 Jan, [place] [address] 59042- 5355 Nov, Unspecified mood [affective] disorder F39 and Schizophrenia , unspecified type F20.9 [place] [address] [place] [id number] [place] [address] 08535- 3128 Oct, Schizophrenia, unspecified type F20.9 [facility] [address] [place] [id number] [place] [address] 27691- 0142 Sep, Unspecified mood [affective] disorder F39 and Schizophrenia , unspecified type F20.9 [place] [address] 35664- 6682 August, Schizophrenia, unspecified type F20.9 [place] [address] [place] [id number] [place] [address] 95935- 0889 August, Sprain of right shoulder, unspecified shoulder sprain type, initial encounter S43.401A ; Pain in thoracic spine M54.6 and Other chronic pain G89.29 [place] [address] 23595- 1208 Jul, Schizophrenia, unspecified type F20.9 [facility] [address] [place] [id number] [place] [address] 81132- 3546 Jun, [facility] [address] 605180- 0103 Jun, Unspecified mood [affective] disorder F39 and Schizophrenia , unspecified type F20.9 [place] [address] 09080- 8754 May, Schizophrenia, unspecified type F20.9 and Unspecified mood [ affective] disorder F39 [place] [address] 21788- 9189 Apr, Schizophrenia, unspecified type F20.9 and Unspecified mood [ affective] disorder F39 [facility] [address] [place] [id number] [place] [address] 53126 -6606 Sep, [place] [address] [place] [id number] [place] [address] 19562- 6064 Apr, Unspecified mood [affective] disorder F39 and Schizophrenia , unspecified type F20.9 [facility] [address] [place] [id number] [place] [address] 25649- 2023 Apr, Unspecified mood [affective] disorder F39 ; Essential hypertension I10 ; Gastroesophageal reflux disease, esophagitis presence not specified K21.9 and Hypercholesterolemia E78.00 [place] [address] 53963- 6552 Feb, Unspecified mood [affective] disorder F39 [facility] [address] [place] [id number] [place] [address] 44468- 6855 Jan, Unspecified mood [affective] disorder F39 [place] [address] [place] [address]- 9512 Feb, Abscess L02.91 [facility] [place] [facility] [address] [id number] [place] [address]- 0036 14 Jul, 2014 [facility] [place] [facility] [address] [id number] [place] [address]- 4976 13 Jul, 2014 [facility] [place] [facility] [address] [id number] [place] [address]- 7789 Jun, [facility] [place] [facility] [address] [id number] [place] [address]- 2842 Jun, [facility] [place] [facility] [address] [id number] [place] [address]- 0169 Dec, [facility] [place] [facility] [address] [id number] [place] [address]- 0867 Dec, [facility] [address] [id number] [place] [address]- 6723 Dec, [facility] [place] [facility] [address] [id number] [place] [address]- 0797 Dec, [facility] [place] [facility] [address] [id number] [place] [address]- 8273 August, [facility] [place] [facility] [address] [id number] [place] [address]- 2030 August, [facility] [place] [facility] [address] [id number] [place] [address]- 9784 August, [facility] [place] [facility] [address] [id number] [place] [address]- 9831 August, [facility] [place] [facility] [address] [id number] [place] [address]- 2008 Jun, [facility] [place] [facility] [address] [id number] [place] 0805 Jun, [facility] [place] [facility] [address] [id number] [place] [address]- 8525 13 Jun, 2013 [facility] [place] [facility] [address] [id number] [place] [address]- 3103 13 Jun, 2013 [facility] [place] [facility] [address] [id number] [place] [address]- 6576 28 Jan, 2013 [facility] [place] [facility] [address] [id number] [place] [address]- 6518 28 Jan, 2013 [facility] [place] [facility] [address] [id number] [place] [address]- 3324 10 Sep, 2012 [facility] [place] [facility] [address] [id number] [place] [address]- 7687 22 Jun, 2012 [facility] [place] [facility] [address] [id number] [place] [address]- 8243 Jun, [facility] [place] [facility] [address] [id number] [place] [address]- 0420 30 Jul, 2011 [facility] [place] [facility] [address] [id number] [place] [address]- 2878 Jul, [facility] [place] [facility] [address] [id number] [place] [address]- 3079 Jul, [facility] [place] [facility] [address] [id number] [place] [address]- 8248 Jul, [facility] [place] [facility] [address] [id number] [place] [address]- 8192 04 Jul, 2011 [facility] [place] [facility] [address] [id number], [place] [address]- 4929 27 Jun, 2011 [facility] [place] [facility] [address] [id number] [place] [address]- 1983 13 Jun, 2011 [facility] [place] [facility] [address] [id number] [place] [address]- 4517 12 Jun, 2011 [facility] [place] [facility] [address] [id number] [place] [address] 2548 05 Jun, 2011 [facility] [place] [facility] [address] [facility] [id number] [place] [address]- 5206 Apr, [facility] [address] [facility] [id number], [place] [address]- 0331 Apr, [facility] [address] [facility] [id number], [place] [address]- 4876 Mar, [facility] [address] [facility] [id number], [place] [address]- 2988 Mar, [facility] [address] [facility] [id number], [place] [address]- 7844 Mar, IMMUNIZATIONS No Known Immunizations SOCIAL HISTORY Never Assessed REASON FOR VISIT emily/concha Goodrich MA PLAN OF CARE Activity Details Follow Up 4 Weeks, prn Reason: VITAL SIGNS Height 70 in 2017-09-22 Weight 250.6 lbs 2017-09-22 Heart Rate 100 bpm 2017-09-22 Respiratory Rate 20 2017-09-22 Oximetry on room air:95 % 2017-09-22 BMI 35.95 kg/m2 2017-09-22 Blood pressure systolic 130 mmHg 2017-09-22 Blood pressure diastolic 74 mmHg 2017-09-22 MEDICATIONS Medication Instructions Dosage Frequency Start Date End Date Duration Status Propranolol HCl 10 MG Orally Twice a day as needed 1 tablet Active Haldol Decanoate 100 MG/ML Intramuscular every 28 days 1 ml Active RESULTS No Results PROCEDURES Procedure Date Ordered Result Body Site [facility] VISIT ESTABLISHED PATIENT September 22, 2017 INSTRUCTIONS MEDICATIONS ADMINISTERED No Known Medications MEDICAL (GENERAL) HISTORY Type Description Date Medical History schizophrenia Medical History anxiety Surgical History knee surgery 2000 Surgical History throat surgery 2013 Hospitalization History multiple stays for infection in R. 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
--- OUTSIDE RECORDS SUMMARY | 2018-04-27 01:04 | XMS REPORT ---
Author Author MARVIN DHILLON Organization [facility] Address [address] [place] [address] Care Team Providers Care Toll Line Inspector Name Role Phone MARVIN DHILLON Unavailable PROBLEMS Type Condition ICD9-CM Code ENR15-CT Code Onset Dates Condition Status SNOMED Code Problem Other chronic pain G89.29 Active 87175962 Problem Pain in thoracic spine M54.6 Active 195141658957348 Problem Hypercholesterolemia E78.00 Active 56778801 Problem Unspecified mood [affective] disorder F39 Active 53259355 Problem Sprain of right shoulder, unspecified shoulder sprain type, initial encounter S43.401A Active 1982957 Problem Schizophrenia, unspecified type F20.9 Active 65419126 ALLERGIES No Information ENCOUNTERS Encounter Location Date Diagnosis [place] [address] [address]- 8637 Jan, [place] [address] 64673- 1912 Nov, Unspecified mood [affective] disorder F39 and Schizophrenia , unspecified type F20.9 [place] [address] [place] [id number] [place] [address] 62569- 5987 Oct, Schizophrenia, unspecified type F20.9 [place] [address] [place] [id number] [place] [address] 77344- 6413 Sep, Unspecified mood [affective] disorder F39 and Schizophrenia , unspecified type F20.9 [place] [address] 00557- 0363 August, Schizophrenia, unspecified type F20.9 [place] [address] [place] [id number] [place] [address] 02834- 9629 August, Sprain of right shoulder, unspecified shoulder sprain type, initial encounter S43.401A ; Pain in thoracic spine M54.6 and Other chronic pain G89.29 [place] [address] [place] [id number] [place] [address] 85928- 1665 Jul, Schizophrenia, unspecified type F20.9 [facility] [address] [place] [id number] [place] [address] 19324- 6309 Jun, [facility] [address] 368808- 3048 Jun, Unspecified mood [affective] disorder F39 and Schizophrenia , unspecified type F20.9 [place] [address] [place] [address] [id number] [place] [address] 86507- 0842 May, Schizophrenia, unspecified type F20.9 and Unspecified mood [ affective] disorder F39 [place] [address] [place] [id number] [place] [address] 43447- 6184 Apr, Schizophrenia, unspecified type F20.9 and Unspecified mood [ affective] disorder F39 [facility] [address] [place] [address] [id number] [place] [address] 48832 -1387 Sep, [place] [address] [place] [address] [id number] [place] [address] 71521- 9724 Apr, Unspecified mood [affective] disorder F39 and Schizophrenia , unspecified type F20.9 [facility] [address] [place] [address] [id number] [place] [address] 19372- 4701 Apr, Unspecified mood [affective] disorder F39 ; Essential hypertension I10 ; Gastroesophageal reflux disease, esophagitis presence not specified K21.9 and Hypercholesterolemia E78.00 [place] [address] 83330- 2931 Feb, Unspecified mood [affective] disorder F39 [facility] [address] [place] [id number] [place] [address] 19438- 1913 Jan, Unspecified mood [affective] disorder F39 [place] [address] [place] [id number] [place] [address]- 1409 Feb, Abscess L02.91 [facility] [address] [id number] [place] [address]- 2096 14 Jul, 2014 [facility] [place] [facility] [address] [id number] [place] [address]- 2546 Jul, [facility] [place] [facility] [address] [id number] [place] [address]- 9735 Jun, [facility] [place] [facility] [address] [id number] [place] [address]- 3375 Jun, [facility] [place] [facility] [address] [id number] [place] [address]- 7998 Dec, [facility] [place] [facility] [address] [id number] [place] [address]- 0466 Dec, [facility] [place] [facility] [address] [id number] [place] [address]- 9572 Dec, [facility] [address] [id number] [place] [address]- 7928 Dec, [facility] [place] [facility] [address] [id number] [place] [address]- 6952 August, [facility] [place] [facility] [address] [id number] [place] [address]- 8363 August, [facility] [place] [facility] [address] [id number] [place] [address]- 8461 August, [facility] [place] [facility] [address] [id number] [place] [address]- 3140 August, [facility] [place] [facility] [address] [id number] [place] 9489 Jun, [facility] [place] [facility] [address] [id number] [place]363 Jun, [facility] [place] [facility] [address] [id number] [place] [address]- 3623 13 Jun, 2013 [facility] [place] [facility] [address] [id number] [place] [address]- 4181 13 Jun, 2013 [facility] [place] [facility] [address] [id number] [place] [address]- 6697 28 Jan, 2013 [facility] [place] [facility] [address] [id number] [place] [address]- 0223 28 Jan, 2013 [facility] [place] [facility] [address] [id number] [place] [address]- 3517 10 Sep, 2012 [facility] [place] [facility] [address] [id number] [place] [address]- 0581 22 Jun, 2012 [facility] [place] [facility] [address] [id number] [place] [address]- 3862 11 Jun, 2012 [facility] [place] [facility] [address] [id number] [place] [address]- 6308 30 Jul, 2011 [facility] [place] [facility] [address] [id number] [place] [address]- 0897 Jul, [facility] [place] [facility] [address] [id number] [place] [address] Jul, [facility] [place] [facility] [address] [id number] [place] [address] Jul, [facility] [place] [facility] [address] [id number] [place] [address] 04 Jul, 2011 [facility] [place] [facility] [address] [id number], [place] [address] 27 Jun, 2011 [facility] [place] [facility] [address] [id number] [place] [address] 13 Jun, 2011 [facility] [place] [facility] [address] [id number] [place] [address] 12 Jun, 2011 [facility] [place] [facility] [address] [id number] [place] [address] 05 Jun, 2011 [facility] [place] [facility] [address] [facility] [id number] [place] [address] Apr, [facility] [address] [facility] [id number], [place] [address] Apr, [facility] [address] [facility] [id number], [place] [address] Mar, [facility] [address] [facility] [id number], [place] [address] Mar, [facility] [address] [facility] [id number], [place] [address] Mar, IMMUNIZATIONS Vaccine Route Administration Date Status HALDOL 100 MG/ML (PT'S OWN) IM Intramuscular October 29, 2017 Administered SOCIAL HISTORY Never Assessed REASON FOR VISIT Injection PLAN OF CARE VITAL SIGNS MEDICATIONS Unknown Medications RESULTS No Results PROCEDURES Procedure Date Ordered Result Body Site HALDOL 100 MG/ML (PT'S OWN) October 29, 2017 THER/PROPH/DIAG INJ, SC/IM October 29, 2017 INSTRUCTIONS MEDICATIONS ADMINISTERED No Known Medications MEDICAL (GENERAL) HISTORY Type Description Date Medical History schizophrenia Medical History anxiety Surgical History knee surgery 2000 Surgical History throat surgery 2013 Hospitalization History multiple stays for infection in R. leg Hospitalization History [facility] 02/2017 Hospitalization History [facility]- Wound Check, suture removal 2016 Hospitalization History [facility] [place]- Lower back pain 06/20/2017
--- OUTSIDE RECORDS SUMMARY | 2018-04-27 01:04 | XMS REPORT ---
Author Author MARVIN DHILLON Organization [facility] Address [address] [place] [address] Care Team Providers Care Supervisor Kennel Name Role Phone MARVIN DHILLON Unavailable PROBLEMS Type Condition ICD9-CM Code YIF11-AS Code Onset Dates Condition Status SNOMED Code Problem Other chronic pain G89.29 Active 82683944 Problem Pain in thoracic spine M54.6 Active 264951615495356 Problem Hypercholesterolemia E78.00 Active 51933900 Problem Unspecified mood [affective] disorder F39 Active 81973086 Problem Sprain of right shoulder, unspecified shoulder sprain type, initial encounter S43.401A Active 2512297 Problem Schizophrenia, unspecified type F20.9 Active 07832042 ALLERGIES No Known Allergies ENCOUNTERS Encounter Location Date Diagnosis [place] [id number] [place] [id number] [place] [address]646- 8573 Jan, [place] [address] [address]- [address] Nov, Unspecified mood [affective] disorder F39 and Schizophrenia , unspecified type F20.9 [place] [id number] [place] [address] 57623- 8771 Oct, Schizophrenia, unspecified type F20.9 [facility] [id number] [place] [address] 54157- 9932 Sep, Unspecified mood [affective] disorder F39 and Schizophrenia , unspecified type F20.9 [place] [address] [address]- [address] August, Schizophrenia, unspecified type F20.9 [place] [address] [place] [id number] [place] [address] 20115- 0335 August, Sprain of right shoulder, unspecified shoulder sprain type, initial encounter S43.401A ; Pain in thoracic spine M54.6 and Other chronic pain G89.29 [place] [address] [address]47- 5057 Jul, Schizophrenia, unspecified type F20.9 [facility] [id number] [place] [address] 49638- 9778 Jun, [facility] [address] 147880- 5016 Jun, Unspecified mood [affective] disorder F39 and Schizophrenia , unspecified type F20.9 [place] [address] 09393- 5005 May, Schizophrenia, unspecified type F20.9 and Unspecified mood [ affective] disorder F39 [place] [address] 47[address]- 7325 Apr, Schizophrenia, unspecified type F20.9 and Unspecified mood [ affective] disorder F39 [facility] [id number] [place] [address] 22919 -4279 Sep, [place] [address] [id number] [place] [address] 60003- 0317 Apr, Unspecified mood [affective] disorder F39 and Schizophrenia , unspecified type F20.9 [facility] [id number] [place] [address] 37163- 3085 Apr, Unspecified mood [affective] disorder F39 ; Essential hypertension I10 ; Gastroesophageal reflux disease, esophagitis presence not specified K21.9 and Hypercholesterolemia E78.00 [place] [address] 7[address]- 3646 Feb, Unspecified mood [affective] disorder F39 [facility] [id number] [place] [address] 50737- 8201 Jan, Unspecified mood [affective] disorder F39 [place] [address] [address] 0[address] Feb, Abscess L02.91 [facility] [place] [facility] [address] [id number] [place] [address] 8326 14 Jul, 2014 [facility] [place] [facility] [address] [id number] [place] [address]- 4876 13 Jul, 2014 [facility] [place] [facility] [address] [id number] [place] [address]- 5055 Jun, [facility] [place] [facility] [address] [id number] [place] [address]- 6246 Jun, [facility] [place] [facility] [address] [id number] [place] [address]- 1200 Dec, [facility] [place] [facility] [address] [id number] [place] [address]- 7564 Dec, [facility] [address] [id number] [place] [address]- 3415 Dec, [facility] [place] [facility] [address] [id number] [place] [address]- 4555 Dec, [facility] [place] [facility] [address] [id number] [place] [address]- 1432 August, [facility] [place] [facility] [address] [id number] [place] [address]- 1600 August, [facility] [place] [facility] [address] [id number] [place] [address]- 6184 August, [facility] [place] [facility] [address] [id number] [place] [address]- 6003 August, [facility] [place] [facility] [address] [id number] [place] [address]- 4021 Jun, [facility] [place] [facility] [address] [id number] [place] [address] Jun, [facility] [place] [facility] [address] [id number] [place] [address]- 4202 13 Jun, 2013 [facility] [place] [facility] [address] [id number] [place] [address]- 8902 13 Jun, 2013 [facility] [place] [facility] [address] [id number] [place] [address]- 4263 28 Jan, 2013 [facility] [place] [facility] [address] [id number] [place] [address]- 5331 28 Jan, 2013 [facility] [place] [facility] [address] [id number] [place] [address]- 1060 10 Sep, 2012 [facility] [place] [facility] [address] [id number] [place] [address]- 1460 22 Jun, 2012 [facility] [place] [facility] [address] [id number] [place] [address]- 5362 Jun, [facility] [place] [facility] [address] [id number] [place] [address]- 8581 30 Jul, 2011 [facility] [place] [facility] [address] [id number] [place] [address]- 4314 Jul, [facility] [place] [facility] [address] [id number] [place] [address]- 4188 Jul, [facility] [place] [facility] [address] [id number] [place] [address]- 5497 Jul, [facility] [place] [facility] [address] [id number] [place] [address]- 2780 04 Jul, 2011 [facility] [place] [facility] [address] [id number], [place] [address]- 4131 27 Jun, 2011 [facility] [place] [facility] [address] [id number] [place] [address]- 9261 13 Jun, 2011 [facility] [place] [facility] [address] [id number] [place] [address]- 7844 12 Jun, 2011 [facility] [place] [facility] [address] [id number] [place] [address] 2545 05 Jun, 2011 [facility] [place] [facility] [address] [facility] [id number] [place] [address]- 1046 Apr, [facility] [address] [facility] [id number] 89[address] Apr, [facility] [address] [facility] [id number][place] 5[address] Mar, [facility] [address] [facility] [id number], [place] [address]- 2116 Mar, [facility] [address] [facility] [id number][place]- 5878 Mar, IMMUNIZATIONS Vaccine Route Administration Date Status HALDOL 100 MG/ML (PT'S OWN) IM Intramuscular Dec 03, 2017 Administered SOCIAL HISTORY Never Assessed REASON FOR VISIT f/u ROMELIA Oneill PLAN OF CARE Activity Details Follow Up 2 Months Reason: VITAL SIGNS Height 70 in 2017-12-03 Weight 264.1 lbs 2017-12-03 Heart Rate 104 bpm 2017-12-03 Respiratory Rate 2017-12-03 BMI 37.89 kg/m2 2017-12-03 Blood pressure systolic 122 mmHg 2017-12-03 Blood pressure diastolic 76 mmHg 2017-12-03 MEDICATIONS Medication Instructions Dosage Frequency Start Date End Date Duration Status Propranolol HCl 10 MG Orally Twice a day as needed 1 tablet 30 days Active Haldol Decanoate 100 MG/ML Intramuscular every 28 days 1 ml 28 days Active RESULTS No Results PROCEDURES Procedure Date Ordered Result Body Site [facility] VISIT ESTABLISHED PATIENT Dec 03, 2017 THER/PROPH/DIAG INJ, SC/IM Dec 03, 2017 HALDOL 100 MG/ML (PT'S OWN) Dec 03, 2017 INSTRUCTIONS MEDICATIONS ADMINISTERED No Known Medications MEDICAL (GENERAL) HISTORY Type Description Date Medical History schizophrenia Medical History anxiety Surgical History knee surgery 2000 Surgical History throat surgery 2013 Hospitalization History multiple stays for infection in R. 

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
--- OUTSIDE RECORDS SUMMARY | 2018-04-27 01:05 | XMS REPORT ---
Author Author MARVIN DHILLON Organization [facility] Address [address] [place] [address] Care Team Providers Care Pan Dumper Name Role Phone MARVIN DHILLON Unavailable PROBLEMS Type Condition ICD9-CM Code [id number] Code Onset Dates Condition Status SNOMED Code Problem Other chronic pain G89.29 Active 19793862 Problem Pain in thoracic spine M54.6 Active 152593328076991 Problem Hypercholesterolemia E78.00 Active 73022801 Problem Unspecified mood [affective] disorder F39 Active 11781992 Problem Sprain of right shoulder, unspecified shoulder sprain type, initial encounter S43.401A Active 8098243 Problem Schizophrenia, unspecified type F20.9 Active 84270158 ALLERGIES No Known Allergies ENCOUNTERS Encounter Location Date Diagnosis [facility] [id number] [place] [address] 44734- 4135 Oct, [facility] [address] [address]- [address] Oct, [facility] [id number] [place] [address] 52788- 5929 Sep, Unspecified mood [affective] disorder F39 and Schizophrenia , unspecified type F20.9 [facility] [id number] [place] [address] 42917- 0331 August, Schizophrenia, unspecified type F20.9 [facility] [id number] [place] [address] 47030- 4279 August, Sprain of right shoulder, unspecified shoulder sprain type, initial encounter S43.401A ; Pain in thoracic spine M54.6 and Other chronic pain G89.29 [facility] [id number] [place] [address] 91656- 1969 Jul, Schizophrenia, unspecified type F20.9 [facility] [address] [address] Jun, [facility] [id number] [place] [address] 76515- 8726 Jun, Unspecified mood [affective] disorder F39 and Schizophrenia , unspecified type F20.9 [facility] [id number] [place] [address] 60965- 7007 May, Schizophrenia, unspecified type F20.9 and Unspecified mood [ affective] disorder F39 [facility] [id number] [place] [address] 02941- 7575 Apr, Schizophrenia, unspecified type F20.9 and Unspecified mood [ affective] disorder F39 [facility] [id number] [place] [address] 68015 -4213 Sep, [facility] [id number] [place] [address] 56860- 4977 Apr, Unspecified mood [affective] disorder F39 and Schizophrenia , unspecified type F20.9 [facility] [id number] [place] [address] 44700- 3132 Apr, Unspecified mood [affective] disorder F39 ; Essential hypertension I10 ; Gastroesophageal reflux disease, esophagitis presence not specified K21.9 and Hypercholesterolemia E78.00 [facility] [id number] [place] [address] 32935- 6460 Feb, Unspecified mood [affective] disorder F39 [facility] [id number] [place] [address] 75645- 9839 Jan, Unspecified mood [affective] disorder F39 [facility] [id number] [place] [address] 09420- 5896 Feb, Abscess L02.91 [place] [id number] [place] [address] 84753- 3592 Jul, [facility] [place] [facility] [address] [id number] [place] [address] 3907 Jul, [facility] [place] [facility] [address] [id number] [place] [address]- 2920 Jun, [facility] [place] [facility] [address] [id number] [place] [address]- 5340 Jun, [facility] [place] [facility] [address] [id number] [place] [address]- 5725 Dec, [facility] [address] [id number] [place] [address]- 2942 Dec, [facility] [place] [facility] [address] [id number] [place] [address]- 1223 Dec, [facility] [address] [id number] [place] [address]- 7329 Dec, [facility] [address] [id number] [place] [address]- 9842 August, [facility] [place] [facility] [address] [id number] [place] [address]- 3994 August, [facility] [place] [facility] [address] [id number] [place] [address]- 3524 August, [facility] [place] [facility] [address] [id number] [place] [address]- 7707 August, [facility] [place] [facility] [address] [id number] [place] [address]- 8153 Jun, [facility] [place] [facility] [address] [id number] [place] [address]- 2886 Jun, [facility] [place] [facility] [address] [id number] [place] [address]- 4408 Jun, [facility] [place] [facility] [address] [id number] [place] [address]- 2380 Jun, [facility] [place] [facility] [address] [id number] [place] [address]- 0704 28 Jan, 2013 [facility] [address] [id number] [place] [address]- 9617 28 Jan, 2013 [facility] [place] [facility] [address] [id number] [place] [address]- 8777 10 Sep, 2012 [facility] [place] [facility] [address] [id number] [place] [address]- 2350 22 Jun, 2012 [facility] [place] [facility] [address] [id number] [place] [address]- 5926 11 Jun, 2012 [facility] [place] [facility] [address] [id number] [place] [address]- 7255 30 Jul, 2011 [facility] [place] [facility] [address] [id number] [place] [address]- 6589 Jul, [facility] [place] [facility] [address] [id number] [place] [address]- 0536 Jul, [facility] [place] [facility] [address] [id number] [place] [address]- 7505 Jul, [facility] [place] [facility] [address] [id number] [place] [address]- 2062 04 Jul, 2011 [facility] [place] [facility] [address] [id number] [place] [address]- 5247 27 Jun, 2011 [facility] [place] [facility] [address] [id number] [place] [address]- 7644 13 Jun, 2011 [facility] [place] [facility] [address] [id number] [place] [address]- 1414 Jun, [facility] [place] [facility] [address] [id number] [place] [address]- 5165 05 Jun, 2011 [facility] [place] [facility] [address] [id number] [place] [address]- 5863 30 Apr, 2011 [facility] [place] [facility] [address] [id number] [place] [address]- 2934 Apr, [facility] [place] [facility] [address] [facility] [id number] [place] [address]- 4629 Mar, [facility] [address] [facility] [id number] [place] [address]- 4185 Mar, [facility] [address] [facility] [id number] [place] [address]- 7549 Mar, IMMUNIZATIONS No Known Immunizations SOCIAL HISTORY Never Assessed REASON FOR VISIT f/u Milka PLAN OF CARE Activity Details Follow Up 4 Weeks Reason: VITAL SIGNS Height 70 in 2017-05-19 Weight 253.9 lbs 2017-05-19 Heart Rate 80 bpm 2017-05-19 Respiratory Rate 22 2017-05-19 BMI 36.43 kg/m2 2017-05-19 Blood pressure systolic 140 mmHg 2017-05-19 Blood pressure diastolic 78 mmHg 2017-05-19 MEDICATIONS Medication Instructions Dosage Frequency Start Date End Date Duration Status Propranolol HCl 10 MG Orally Twice a day 1 tablet 12h May, 30 day(s) Active Fenofibrate 160 mg take 1 tablet (160 mg) by oral route once daily Dec, Not-Taking Bactrim DS 800-160 MG Orally 2 times a day 1 tablet 12h Not-Taking Haldol Decanoate 100 MG/ML Intramuscular every 28 days 1 ml 28 days Active Terbinafine 1 % 1 sandra by Topical route 2 times per day apply vicks 30 min before applying this August, Not-Taking Lisinopril 10 mg 0.5 tablet by Oral route 1 time per day Dec, 30 days Not-Taking Nexium 20 mg Orally Once a day 1 capsule by Oral route 1 time per day 30min before a meal 24h Dec, Not-Taking Abilify 30 MG Orally Once a day 1 tablet 24h Apr, Not-Taking Haldol Decanoate Not-Taking RESULTS No Results PROCEDURES Procedure Date Ordered Result Body Site [facility] VISIT ESTABLISHED PATIENT May 19, 2017 INSTRUCTIONS MEDICATIONS ADMINISTERED No Known Medications MEDICAL (GENERAL) HISTORY Type Description Date Medical History schizophrenia Medical History anxiety Surgical History knee surgery 2000 Surgical History throat surgery 2013 Hospitalization History multiple stays for infection in R. leg Hospitalization History [facility]-coma 02/2017 Hospitalization History [facility] [place]- Wound Check, suture removal 2016 Hospitalization History [facility] [place]- Lower back pain 06/20/2017
--- OUTSIDE RECORDS SUMMARY | 2018-04-27 01:05 | XMS REPORT ---
Author Author RANGEL TIAN Organization [facility] Address [address] [place] [address] Care Team Providers Care Lozenge Maker Name Role Phone RANGEL TIAN Unavailable PROBLEMS Type Condition ICD9-CM Code [id number] Code Onset Dates Condition Status SNOMED Code Problem Other chronic pain G89.29 Active 48457364 Problem Pain in thoracic spine M54.6 Active 717512924991535 Problem Hypercholesterolemia E78.00 Active 92230435 Problem Unspecified mood [affective] disorder F39 Active 71939498 Problem Sprain of right shoulder, unspecified shoulder sprain type, initial encounter S43.401A Active 2294417 Problem Schizophrenia, unspecified type F20.9 Active 63100338 ALLERGIES No Known Allergies ENCOUNTERS Encounter Location Date Diagnosis [place] [id number] [place] [address] 84347- 9365 Oct, Schizophrenia, unspecified type F20.9 [place] [id number] [place] [address] 91887- 6661 11 Sep, 2017 Unspecified mood [affective] disorder F39 and Schizophrenia , unspecified type F20.9 [address] [place] [id number] [place] [address] 05884- 4677 August, Schizophrenia, unspecified type F20.9 [place] [id number] [place] [address] 05064- 4905 04 Aug, 2017 Sprain of right shoulder, unspecified shoulder sprain type, initial encounter S43.401A ; Pain in thoracic spine M54.6 and Other chronic pain G89.29 [facility] [id number] [place] [address] 09779- 4262 12 Jul, 2017 Schizophrenia, unspecified type F20.9 [place] [address]- 7495 Jun, [facility] [id number] [place] [address] 60980- 9040 Jun, Unspecified mood [affective] disorder F39 and Schizophrenia , unspecified type F20.9 [facility] [id number] [place] [address] 20639- 5504 May, Schizophrenia, unspecified type F20.9 and Unspecified mood [ affective] disorder F39 [facility] [id number] [place] [address] 57980- 2824 Apr, Schizophrenia, unspecified type F20.9 and Unspecified mood [ affective] disorder F39 [facility] [id number] [place] [address] 66610 -5236 Sep, [facility] [id number] [place] [address] 89496- 6918 Apr, Unspecified mood [affective] disorder F39 and Schizophrenia , unspecified type F20.9 [facility] [address] [place] [address] 32759- 8874 Apr, Unspecified mood [affective] disorder F39 ; Essential hypertension I10 ; Gastroesophageal reflux disease, esophagitis presence not specified K21.9 and Hypercholesterolemia E78.00 [facility] [address] [address]- 8973 Feb, Unspecified mood [affective] disorder F39 [facility] [address] [address]- 2311 Jan, Unspecified mood [affective] disorder F39 [facility] [id number] [place] [address] 12609- 9234 Feb, Abscess L02.91 [facility] [id number] [place] [address] 03664- 0904 14 Jul, 2014 [facility] [id number] [place] [address] 99447- 2053 Jul, [facility] [place] [facility] [address] [id number] [place] [address]- 3152 Jun, [facility] [place] [facility] [address] [id number] [place] [address]- 8702 Jun, [facility] [place] [facility] [address] [id number] [place] [address]- 0385 Dec, [facility] [place] [facility] [address] [id number] [place] [address]- 9617 Dec, [facility] [place] [facility] [address] [id number] [place] [address]- 3074 Dec, [facility] [place] [facility] [address] [id number] [place] [address]- 1108 Dec, [facility] [place] [facility] [address] [id number] [place] [address]- 4847 August, [facility] [place] [facility] [address] [id number] [place] [address]- 5547 August, [facility] [place] [facility] [address] [id number] [place] [address]- 4157 August, [facility] [place] [facility] [address] [id number] [place] [address]- 0945 August, [facility] [place] [facility] [address] [id number] [place] [address]- 2934 Jun, [facility] [place] [facility] [address] [id number], [place] [address]- 2713 Jun, [facility] [place] [facility] [address] [id number] [place] [address]- 7628 Jun, [facility] [place] [facility] [address] [id number] [place] [address]- 9467 Jun, [facility] [place] [facility] [address] [id number] [place] [address]- 1340 Jan, [facility] [place] [facility] [address] [id number] [place] [address]- 4947 28 Jan, 2013 [facility] [address] [id number] [place] [address]- 7716 10 Sep, 2012 [facility] [place] [facility] [address] [id number] [place] [address]- 1612 22 Jun, 2012 [facility] [address] [id number] [place] [address]- 6283 11 Jun, 2012 [facility] [place] [facility] [address] [id number] [place] [address]- 2294 30 Jul, 2011 [facility] [address] [id number] [place] [address]- 9522 Jul, [facility] [place] [facility] [address] [id number] [place] [address]- 0385 Jul, [facility] [address] [id number] [place] [address]- 3525 Jul, [facility] [place] [facility] [address] [id number] [place] [address]- 1723 04 Jul, 2011 [facility] [place] [facility] [address] [id number] [place] [address]- 5679 27 Jun, 2011 [facility] [address] [id number] [place] [address]- 9505 13 Jun, 2011 [facility] [place] [facility] [address] [id number] [place] [address]- 6231 Jun, [facility] [place] [facility] [address] [id number] [place] [address]- 5127 05 Jun, 2011 [facility] [place] [facility] [address] [id number] [place] [address]- 3835 30 Apr, 2011 [facility] [place] [facility] [address] [id number] [place] [address]- 7797 Apr, [facility] [place] [facility] [address] [id number] [place] [address]- 1010 Mar, [facility] [address] [facility] [id number] [place] [address]- 3869 Mar, [facility] [address] [facility] [id number] [address] Mar, IMMUNIZATIONS No Known Immunizations SOCIAL HISTORY Never Assessed REASON FOR VISIT Establish Care. Went to ER for injury to shoulder and back and was told he needed to get a primary doctor. Pulled toenail off last week and it is sore. Nidhi KOTHARI PLAN OF CARE Activity Details Follow Up 4 Weeks Reason: VITAL SIGNS Height 70 in 2017-08-15 Weight 261 lbs 2017-08-15 Temperature 97.8 degrees Fahrenheit 2017-08-15 Heart Rate 90 bpm 2017-08-15 Respiratory Rate 22 2017-08-15 BMI 37.45 kg/m2 2017-08-15 Blood pressure systolic 138 mmHg 2017-08-15 Blood pressure diastolic 80 mmHg 2017-08-15 MEDICATIONS Medication Instructions Dosage Frequency Start Date End Date Duration Status Diclofenac Sodium 75 MG Orally Twice a day 1 tablet with food or milk 12h August, 3 Sep, 2017 30 day(s) Active Haldol Decanoate 100 MG/ML Intramuscular every 28 days 1 ml 30 days Active RESULTS No Results PROCEDURES Procedure Date Ordered Result Body Site [facility] VISIT ESTABLISHED PATIENT August 15, 2017 INSTRUCTIONS MEDICATIONS ADMINISTERED No Known Medications MEDICAL (GENERAL) HISTORY Type Description Date Medical History schizophrenia Medical History anxiety Surgical History knee surgery 2000 Surgical History throat surgery 2013 Hospitalization History multiple stays for infection in R. 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
--- OUTSIDE RECORDS SUMMARY | 2018-04-27 01:05 | XMS REPORT ---
Author Author MARVIN DHILLON Organization [facility] Address [address] [place] [address] Care Team Providers Care Sign Painter Helper Name Role Phone MARVIN DHILLON Unavailable PROBLEMS Type Condition ICD9-CM Code WED51-LC Code Onset Dates Condition Status SNOMED Code Problem Other chronic pain G89.29 Active 17320740 Problem Pain in thoracic spine M54.6 Active 795625754108769 Problem Hypercholesterolemia E78.00 Active 85204221 Problem Unspecified mood [affective] disorder F39 Active 39137067 Problem Sprain of right shoulder, unspecified shoulder sprain type, initial encounter S43.401A Active 2443110 Problem Schizophrenia, unspecified type F20.9 Active [id number] ALLERGIES No Information ENCOUNTERS Encounter Location Date Diagnosis [facility] [id number] [place] [address] 80266- 2221 Oct, Schizophrenia, unspecified type F20.9 [facility] [id number] [place] [address] 77589- 0643 11 Sep, 2017 Unspecified mood [affective] disorder F39 and Schizophrenia , unspecified type F20.9 [facility] [id number] [place] [address] 74131- 3517 August, Schizophrenia, unspecified type F20.9 [facility] [id number] [place] [address] 23655- 1044 04 Aug, 2017 Sprain of right shoulder, unspecified shoulder sprain type, initial encounter S43.401A ; Pain in thoracic spine M54.6 and Other chronic pain G89.29 [facility] [address] [place] [address] 49929- 5194 Jul, Schizophrenia, unspecified type F20.9 [facility] [id number] [address] 1284 Jun, [facility] [id number] [place] [address] 38060- 9121 Jun, Unspecified mood [affective] disorder F39 and Schizophrenia , unspecified type F20.9 [facility] [id number] [place] [address] 58472- 0306 May, Schizophrenia, unspecified type F20.9 and Unspecified mood [ affective] disorder F39 [facility] [id number] [place] [address] 33451- 1493 Apr, Schizophrenia, unspecified type F20.9 and Unspecified mood [ affective] disorder F39 [facility] IN [facility] [id number] [place] [address] 67179 -8266 Sep, [facility] [id number] [place] [address] 14283- 6198 Apr, Unspecified mood [affective] disorder F39 and Schizophrenia , unspecified type F20.9 [facility] [id number] [place] [address] 72344- 9101 Apr, Unspecified mood [affective] disorder F39 ; Essential hypertension I10 ; Gastroesophageal reflux disease, esophagitis presence not specified K21.9 and Hypercholesterolemia E78.00 [facility] [address] [address] 6134 Feb, Unspecified mood [affective] disorder F39 [facility] [id number] [address] 1820 Jan, Unspecified mood [affective] disorder F39 [facility] [id number] [place] [address] 94427- 8887 Feb, Abscess L02.91 [facility] [id number] [place] [address] 02120- 1754 14 Jul, 2014 [facility] [id number] [place] [address] 55009- 9682 Jul, [facility] [place] [facility] [address] [id number] [place] [address]- 2087 Jun, [facility] [place] [facility] [address] [id number] [place] [address]- 6266 Jun, [facility] [place] [facility] [address] [id number] [place] [address]- 5388 Dec, [facility] [place] [facility] [address] [id number] [place] [address]- 1585 Dec, [facility] [place] [facility] [address] [id number] [place] [address]- 4527 Dec, [facility] [place] [facility] [address] [id number] [place] [address]- 0367 Dec, [facility] [place] [facility] [address] [id number] [place] [address]- 1952 August, [facility] [place] [facility] [address] [id number] [place] [address]- 4344 August, [facility] [place] [facility] [address] [id number] [place] [address]- 3870 August, [facility] [place] [facility] [address] [id number] [place] [address]- 5569 August, [facility] [place] [facility] [address] [id number] [place] [address]- 6030 Jun, [facility] [place] [facility] [address] [id number] [address]- 2022 Jun, [facility] [place] [facility] [address] [id number] [place] [address]- 5761 Jun, [facility] [place] [facility] [address] [id number] [place] [address]- 1587 Jun, [facility] [place] [facility] [address] [id number] [place] [address]- 9587 Jan, [facility] [place] [facility] [address] [id number] [place] [address]- 3191 28 Jan, 2013 [facility] [address] [id number] [place] [address]- 7858 10 Sep, 2012 [facility] [place] [facility] [address] [id number] [place] [address]- 8788 22 Jun, 2012 [facility] [address] [id number] [place] [address]- 0829 11 Jun, 2012 [facility] [place] [facility] [address] [id number] [place] [address]- 3239 30 Jul, 2011 [facility] [address] [id number] [place] [address]- 9773 Jul, [facility] [address] [id number] [place] [address]- 6368 Jul, [facility] [address] [id number] [place] [address]- 2083 Jul, [facility] [address] [id number] [place] [address]- 7007 04 Jul, 2011 [facility] [address] [id number] [place] [address]- 5219 27 Jun, 2011 [facility] [address] [id number] [place] [address]- 1879 13 Jun, 2011 [facility] [address] [id number] [place] [address]- 3564 Jun, [facility] [place] [facility] [address] [id number] [place] [address]- 8377 05 Jun, 2011 [facility] [place] [facility] [address] [id number] [place] [address]- 6148 30 Apr, 2011 [facility] [place] [facility] [address] [id number] [place] [address]- 9924 Apr, [facility] [address] [id number] [place] [address]- 6547 Mar, [facility] [address] [facility] [id number] [place] [address]- 6823 Mar, [facility] [address] [facility] [id number], [place] [address]- 5549 Mar, IMMUNIZATIONS Vaccine Route Administration Date Status HALDOL 100 MG/ML (PT'S OWN) IM Intramuscular July 24, 2017 Administered SOCIAL HISTORY Never Assessed REASON FOR VISIT Injection haldol PLAN OF CARE Activity Details Follow Up 4 Weeks Reason: VITAL SIGNS MEDICATIONS Unknown Medications RESULTS No Results PROCEDURES Procedure Date Ordered Result Body Site HALDOL 100 MG/ML (PT'S OWN) July 24, 2017 THER/PROPH/DIAG INJ, SC/IM July 24, 2017 INSTRUCTIONS MEDICATIONS ADMINISTERED No Known Medications MEDICAL (GENERAL) HISTORY Type Description Date Medical History schizophrenia Medical History anxiety Surgical History knee surgery 2000 Surgical History throat surgery 2013 Hospitalization History multiple stays for infection in R. leg Hospitalization History [facility]-coma 02/2017 Hospitalization History [facility]- Wound Check, suture removal 2016 Hospitalization History [facility]- Lower back pain 06/20/2017
--- OUTSIDE RECORDS SUMMARY | 2018-04-27 01:05 | XMS REPORT ---
Author Author MARVIN DHILLON Organization [facility] Address [address] [place] [address] Care Team Providers Care Supervisor Pigment Making Name Role Phone MARVIN DHILLON Unavailable PROBLEMS Type Condition ICD9-CM Code WSY21-YZ Code Onset Dates Condition Status SNOMED Code Problem Other chronic pain G89.29 Active 25861701 Problem Pain in thoracic spine M54.6 Active 374526217949936 Problem Hypercholesterolemia E78.00 Active 44324524 Problem Unspecified mood [affective] disorder F39 Active 45586549 Problem Sprain of right shoulder, unspecified shoulder sprain type, initial encounter S43.401A Active 4999365 Problem Schizophrenia, unspecified type F20.9 Active 54130815 ALLERGIES No Information ENCOUNTERS Encounter Location Date Diagnosis [facility] [id number] [place] [address] 52781- 0317 Oct, Schizophrenia, unspecified type F20.9 [facility] [id number] [place] [address] 75764- 6646 11 Sep, 2017 Unspecified mood [affective] disorder F39 and Schizophrenia , unspecified type F20.9 [facility] [id number] [place] [address] 05024- 6916 August, Schizophrenia, unspecified type F20.9 [facility] [id number] [place] [address] 92824- 5354 04 Aug, 2017 Sprain of right shoulder, unspecified shoulder sprain type, initial encounter S43.401A ; Pain in thoracic spine M54.6 and Other chronic pain G89.29 [facility] [address] [place] [address] 17464- 8270 Jul, Schizophrenia, unspecified type F20.9 [facility] [id number] [address]- 3067 Jun, [facility] [id number] [place] [address] 16699- 2783 Jun, Unspecified mood [affective] disorder F39 and Schizophrenia , unspecified type F20.9 [facility] [id number] [place] [address] 54807- 1918 May, Schizophrenia, unspecified type F20.9 and Unspecified mood [ affective] disorder F39 [facility] [id number] [place] [address] 14950- 3903 Apr, Schizophrenia, unspecified type F20.9 and Unspecified mood [ affective] disorder F39 [facility] [id number] [place] [address] 42941 -1873 Sep, [facility] [id number] [place] [address] 01056- 1591 Apr, Unspecified mood [affective] disorder F39 and Schizophrenia , unspecified type F20.9 [facility] [id number] [place] [address] 77585- 8471 Apr, Unspecified mood [affective] disorder F39 ; Essential hypertension I10 ; Gastroesophageal reflux disease, esophagitis presence not specified K21.9 and Hypercholesterolemia E78.00 [facility] [address] [address]- 2997 Feb, Unspecified mood [affective] disorder F39 [facility] [id number] [address]- 2071 Jan, Unspecified mood [affective] disorder F39 [facility] [id number] [place] [address] 81791- 5035 Feb, Abscess L02.91 [facility] [id number] [place] [address] 84804- 9452 14 Jul, 2014 [facility] [id number] [place] [address] 86995- 9939 Jul, [facility] [place] [facility] [address] [id number] [place] [address]- 8524 Jun, [facility] [place] [facility] [address] [id number] [place] [address]- 5513 Jun, [facility] [place] [facility] [address] [id number] [place] [address]- 6241 Dec, [facility] [place] [facility] [address] [id number] [place] [address]- 6091 Dec, [facility] [place] [facility] [address] [id number] [place] [address]- 0955 Dec, [facility] [place] [facility] [address] [id number] [place] [address]- 9658 Dec, [facility] [place] [facility] [address] [id number] [place] [address]- 9631 August, [facility] [place] [facility] [address] [id number] [place] [address]- 6291 August, [facility] [place] [facility] [address] [id number] [place] [address]- 8950 August, [facility] [place] [facility] [address] [id number] [place] [address]- 2110 August, [facility] [place] [facility] [address] [id number] [place] [address]- 2322 Jun, [facility] [place] [facility] [address] [id number], [place] [address]- 2872 Jun, [facility] [place] [facility] [address] [id number] [place] [address]- 0318 Jun, [facility] [place] [facility] [address] [id number] [place] [address]- 6238 Jun, [facility] [place] [facility] [address] [id number] [place] [address]- 8980 Jan, [facility] [place] [facility] [address] [id number] [place] [address]- 5328 28 Jan, 2013 [facility] [address] [id number] [place] [address]- 6890 10 Sep, 2012 [facility] [place] [facility] [address] [id number] [place] [address]- 5244 22 Jun, 2012 [facility] [address] [id number] [place] [address]- 5605 11 Jun, 2012 [facility] [place] [facility] [address] [id number] [place] [address]- 0973 30 Jul, 2011 [facility] [address] [id number] [place] [address]- 3565 Jul, [facility] [address] [id number] [place] [address]- 8371 Jul, [facility] [address] [id number] [place] [address]- 8092 Jul, [facility] [address] [id number] [place] [address]- 3043 04 Jul, 2011 [facility] [address] [id number] [place] [address]- 5366 27 Jun, 2011 [facility] [address] [id number] [place] [address]- 9986 13 Jun, 2011 [facility] [address] [id number] [place] [address]- 2204 Jun, [facility] [place] [facility] [address] [id number] [place] [address]- 0378 05 Jun, 2011 [facility] [place] [facility] [address] [id number] [place] [address]- 0415 30 Apr, 2011 [facility] [place] [facility] [address] [id number] [place] [address]- 0052 Apr, [facility] [address] [id number] [place] [address]- 2298 Mar, [facility] [address] [facility] [id number] [place] [address]- 5431 Mar, [facility] [address] [facility] [id number], [place] [address]- 5358 Mar, IMMUNIZATIONS Vaccine Route Administration Date Status HALDOL 100 MG/ML (PT'S OWN) IM Intramuscular August 22, 2017 Administered SOCIAL HISTORY Never Assessed REASON FOR VISIT Injection - SANIYA Banegas PLAN OF CARE VITAL SIGNS MEDICATIONS Unknown Medications RESULTS No Results PROCEDURES Procedure Date Ordered Result Body Site HALDOL 100 MG/ML (PT'S OWN) August 22, 2017 THER/PROPH/DIAG INJ, SC/IM August 22, 2017 INSTRUCTIONS MEDICATIONS ADMINISTERED No Known Medications MEDICAL (GENERAL) HISTORY Type Description Date Medical History schizophrenia Medical History anxiety Surgical History knee surgery 2000 Surgical History throat surgery 2013 Hospitalization History multiple stays for infection in R. 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
--- OUTSIDE RECORDS SUMMARY | 2018-04-27 01:05 | XMS REPORT ---
Author Author MARVIN DHILLON Organization [facility] Address [address] [place] [address] Care Team Providers Care Supervisor Fireworks Assembly Name Role Phone MARVIN DHILLON Unavailable PROBLEMS Type Condition ICD9-CM Code BOY89-NR Code Onset Dates Condition Status SNOMED Code Problem Other chronic pain G89.29 Active 12486142 Problem Pain in thoracic spine M54.6 Active 523777216121969 Problem Hypercholesterolemia E78.00 Active 99797299 Problem Unspecified mood [affective] disorder F39 Active 51054229 Problem Sprain of right shoulder, unspecified shoulder sprain type, initial encounter S43.401A Active 2732905 Problem Schizophrenia, unspecified type F20.9 Active 10521560 ALLERGIES No Information ENCOUNTERS Encounter Location Date Diagnosis [facility] [id number] [place] [address] 38157- 3866 11 Sep, 2017 Unspecified mood [affective] disorder F39 and Schizophrenia , unspecified type F20.9 [facility] [address] [place] [address] 48902- 9581 11 Aug, 2017 Schizophrenia, unspecified type F20.9 [facility] [id number] [place] [address] 28382- 4142 04 Aug, 2017 Sprain of right shoulder, unspecified shoulder sprain type, initial encounter S43.401A ; Pain in thoracic spine M54.6 and Other chronic pain G89.29 [facility] [id number] [place] [address] 33364- 8043 Jul, Schizophrenia, unspecified type F20.9 [facility] [id number] [place] [address] 25942- 1325 Jun, [facility] [id number] [place] [address] 56486- 5884 Jun, Unspecified mood [affective] disorder F39 and Schizophrenia , unspecified type F20.9 [facility] [id number] [place] [address] 57605- 2580 May, Schizophrenia, unspecified type F20.9 and Unspecified mood [ affective] disorder F39 [facility] [id number] [place] [address] 76436- 0141 Apr, Schizophrenia, unspecified type F20.9 and Unspecified mood [ affective] disorder F39 [facility] [id number] [place] [address] 43025 -4999 Sep, [facility] [id number] [place] [address] 69629- 9589 Apr, Unspecified mood [affective] disorder F39 and Schizophrenia , unspecified type F20.9 [facility] [id number] [place] [address] 91729- 2339 Apr, Unspecified mood [affective] disorder F39 ; Essential hypertension I10 ; Gastroesophageal reflux disease, esophagitis presence not specified K21.9 and Hypercholesterolemia E78.00 [facility] [id number] [place] [address] 99114- 3897 Feb, Unspecified mood [affective] disorder F39 [facility] [id number] [place] [address] 11780- 6580 Jan, Unspecified mood [affective] disorder F39 [facility] [id number] [place] [address] 32076- 7396 Feb, Abscess L02.91 [facility] [id number] [place] [address] 04933- 9122 Jul, [facility] [id number] [place] [address] 98680- 1743 Jul, [facility] [id number] [place] [address] 31062- 3065 Jun, [facility] [place] [facility] [address] [id number] [place] [address]- 8662 Jun, [facility] [place] [facility] [address] [id number] [place] [address]- 4892 Dec, [facility] [place] [facility] [address] [id number] [place] [address]- 1509 Dec, [facility] [place] [facility] [address] [id number] [place] [address]- 1353 Dec, [facility] [place] [facility] [address] [id number] [place] [address]- 5170 Dec, [facility] [place] [facility] [address] [id number] [place] [address]- 2809 August, [facility] [place] [facility] [address] [id number] [place] [address]- 9206 August, [facility] [place] [facility] [address] [id number] [place] [address]- 8429 August, [facility] [place] [facility] [address] [id number] [place] [address]- 9210 August, [facility] [place] [facility] [address] [id number] [place] [address]- 0299 Jun, [facility] [place] [facility] [address] [id number] [place] [address]- 3706 Jun, [facility] [place] [facility] [address] [id number] [place] [address]- 4085 Jun, [facility] [place] [facility] [address] [id number] [place] [address]- 8675 Jun, [facility] [place] [facility] [address] [id number] [place] [address]- 7924 Jan, [facility] [place] [facility] [address] [id number] [place] [address]- 6448 Jan, [facility] [place] [facility] [address] [id number] [place] [address]- 2546 Sep, [facility] [address] [id number] [place] [address] Jun, [facility] [place] [facility] [address] [id number] [place] [address] Jun, [facility] [place] [facility] [address] [id number] [place] [address] Jul, 2011 [facility] [place] [facility] [address] [id number] [place] [address] Jul, [facility] [place] [facility] [address] [id number] [place] [address] Jul, [facility] [place] [facility] [address] [id number] [place] [address] Jul, [facility] [place] [facility] [address] [id number] [place] [address] Jul, [facility] [place] [facility] [address] [id number] [place] [address] Jun, [facility] [place] [facility] [address] [id number] [place] [address] Jun, [facility] [place] [facility] [address] [id number] [place] [address] Jun, [facility] [place] [facility] [address] [id number] [place] [address] Jun, [facility] [place] [facility] [address] [id number] [place] [address] Apr, [facility] [place] [facility] [address] [id number] [place] [address] Apr, [facility] [place] [facility] [address] [id number] [place] [address] Mar, [facility] [place] [facility] [address] [id number] [place] [address] Mar, [facility] [place] [facility] [address] [facility] [id number] [place] [address] Mar, IMMUNIZATIONS No Known Immunizations SOCIAL HISTORY Never Assessed REASON FOR VISIT requesting a returned call PLAN OF CARE VITAL SIGNS MEDICATIONS No Known Medications RESULTS No Results PROCEDURES No Known procedures INSTRUCTIONS MEDICATIONS ADMINISTERED No Known Medications MEDICAL (GENERAL) HISTORY Type Description Date Medical History schizophrenia Medical History anxiety Surgical History knee surgery 2000 Surgical History throat surgery 2013 Hospitalization History multiple stays for infection in R. leg Hospitalization History [facility] 02/2017 Hospitalization History [facility]- Wound Check, suture removal 2016 Hospitalization History [facility]- Lower back pain 06/20/2017
--- OUTSIDE RECORDS SUMMARY | 2018-04-27 01:05 | XMS REPORT ---
Author Author MARVIN DHILLON Organization [facility] Address [address] [place] [address] Care Team Providers Care Communication Center Coordinator Name Role Phone MARVIN DHILLON Unavailable PROBLEMS Type Condition ICD9-CM Code SMQ53-RO Code Onset Dates Condition Status SNOMED Code Problem Other chronic pain G89.29 Active 74519358 Problem Pain in thoracic spine M54.6 Active [id number] Problem Hypercholesterolemia E78.00 Active 09408312 Problem Unspecified mood [affective] disorder F39 Active 52330990 Problem Sprain of right shoulder, unspecified shoulder sprain type, initial encounter S43.401A Active 7543548 Problem Schizophrenia, unspecified type F20.9 Active 58736421 ALLERGIES No Information ENCOUNTERS Encounter Location Date Diagnosis [facility] [id number] [place] [address] 07139- 3654 11 Sep, 2017 Unspecified mood [affective] disorder F39 and Schizophrenia , unspecified type F20.9 [facility] [id number] [place] [address] 76955- 3269 11 Aug, 2017 Schizophrenia, unspecified type F20.9 [facility] [id number] [place] [address] 29385- 2615 04 Aug, 2017 Sprain of right shoulder, unspecified shoulder sprain type, initial encounter S43.401A ; Pain in thoracic spine M54.6 and Other chronic pain G89.29 [facility] [id number] [place] [address] 79134- 6342 Jul, Schizophrenia, unspecified type F20.9 [facility] [id number] [place] [address] 69408- 5108 Jun, [facility] [id number] [place] [address] 40355- 8912 Jun, Unspecified mood [affective] disorder F39 and Schizophrenia , unspecified type F20.9 [facility] [id number] [place] [address] 02579- 1640 May, Schizophrenia, unspecified type F20.9 and Unspecified mood [ affective] disorder F39 [facility] [id number] [place] [address] 72130- 5799 Apr, Schizophrenia, unspecified type F20.9 and Unspecified mood [ affective] disorder F39 [facility] [id number] [place] [address] 19351 -4868 Sep, [facility] [id number] [place] [address] 03746- 9161 Apr, Unspecified mood [affective] disorder F39 and Schizophrenia , unspecified type F20.9 [facility] [id number] [place] [address] 62992- 3024 Apr, Unspecified mood [affective] disorder F39 ; Essential hypertension I10 ; Gastroesophageal reflux disease, esophagitis presence not specified K21.9 and Hypercholesterolemia E78.00 [facility] [id number] [place] [address] 03217- 6596 Feb, Unspecified mood [affective] disorder F39 [facility] [id number] [place] [address] 62802- 9379 Jan, Unspecified mood [affective] disorder F39 [facility] [id number] [place] [address] 74331- 9411 Feb, Abscess L02.91 [facility] [id number] [place] [address] 42064- 3378 Jul, [facility] [id number] [place] [address] 33327- 7840 Jul, [facility] [id number] [place] [address] 62819- 1763 Jun, [facility] [place] [facility] [address] [id number] [place] [address] 4844 Jun, [facility] [place] [facility] [address] [id number] [place] [address]- 3975 Dec, [facility] [place] [facility] [address] [id number] [place] [address]- 2338 Dec, [facility] [place] [facility] [address] [id number] [place] [address]- 6401 Dec, [facility] [place] [facility] [address] [id number] [place] [address]- 7745 Dec, [facility] [place] [facility] [address] [id number] [place] [address]- 0187 August, [facility] [place] [facility] [address] [id number] [place] [address]- 7761 August, [facility] [place] [facility] [address] [id number] [place] [address]- 6903 August, [facility] [place] [facility] [address] [id number] [place] [address] 3611 August, [facility] [place] [facility] [address] [id number] [place] [address]- 2406 Jun, [facility] [place] [facility] [address] [id number] [place] [address]- 5661 Jun, [facility] [place] [facility] [address] [id number] [place] [address]- 0293 Jun, [facility] [place] [facility] [address] [id number] [place] [address]- 0874 Jun, [facility] [place] [facility] [address] [id number] [place] [address]- 7981 Jan, [facility] [place] [facility] [address] [id number] [place] [address]- 7308 Jan, [facility] [place] [facility] [address] [id number] [place] [address]- 2546 Sep, [facility] [address] [id number] [place] [address]- 9443 Jun, [facility] [place] [facility] [address] [id number] [place] [address]- 3276 Jun, [facility] [place] [facility] [address] [id number] [place] [address]- 6548 30 Jul, 2011 [facility] [place] [facility] [address] [id number] [place] [address]- 6729 Jul, [facility] [place] [facility] [address] [id number] [place] [address]- 7172 Jul, [facility] [place] [facility] [address] [id number] [place] [address]- 3598 Jul, [facility] [place] [facility] [address] [id number] [place] [address]- 9255 Jul, [facility] [place] [facility] [address] [id number] [place] [address]- 6639 Jun, [facility] [place] [facility] [address] [id number] [place] [address]- 9542 Jun, [facility] [place] [facility] [address] [id number] [place] [address]- 9160 Jun, [facility] [place] [facility] [address] [id number] [place] [address]- 3353 Jun, [facility] [place] [facility] [address] [id number] [place] [address]- 5949 Apr, [facility] [place] [facility] [address] [id number] [place] [address]- 8738 Apr, [facility] [place] [facility] [address] [id number] [place] [address]- 1110 Mar, [facility] [place] [facility] [address] [id number] [place] [address]- 3687 Mar, [facility] [place] [facility] [address] [facility] [id number] [place] [address]84 Mar, IMMUNIZATIONS No Known Immunizations SOCIAL HISTORY Never Assessed REASON FOR VISIT f/u-Alice LEÓN PLAN OF CARE Activity Details Follow Up 3 Months Reason: VITAL SIGNS Height 70 in 2017-06-23 Weight 251.2 lbs 2017-06-23 Heart Rate 96 bpm 2017-06-23 Respiratory Rate 22 2017-06-23 BMI 36.04 kg/m2 2017-06-23 Blood pressure systolic 130 mmHg 2017-06-23 Blood pressure diastolic 76 mmHg 2017-06-23 MEDICATIONS Medication Instructions Dosage Frequency Start Date End Date Duration Status Terbinafine 1 % 1 sandra by Topical route 2 times per day apply vicks 30 min before applying this August, Not-Taking Haldol Decanoate 100 MG/ML Intramuscular every 28 days 1 ml 30 days Active Fenofibrate 160 mg take 1 tablet (160 mg) by oral route once daily Dec, Not-Taking Propranolol HCl 10 MG Orally Twice a day 1 tablet 12h May, 30 day(s) Not-Taking Bactrim DS 800-160 MG Orally 2 times a day 1 tablet 12h Not-Taking Lisinopril 10 mg 0.5 tablet by Oral route 1 time per day Dec, 30 days Not-Taking Abilify 30 MG Orally Once a day 1 tablet 24h Apr, Not-Taking Nexium 20 mg Orally Once a day 1 capsule by Oral route 1 time per day 30min before a meal 24h Dec, Not-Taking Haldol Decanoate Not-Taking RESULTS No Results PROCEDURES Procedure Date Ordered Result Body Site [facility] VISIT ESTABLISHED PATIENT June 23, 2017 INSTRUCTIONS MEDICATIONS ADMINISTERED No Known Medications MEDICAL (GENERAL) HISTORY Type Description Date Medical History schizophrenia Medical History anxiety Surgical History knee surgery 2000 Surgical History throat surgery 2013 Hospitalization History multiple stays for infection in R. leg Hospitalization History [facility] 02/2017 Hospitalization History [place]- Wound Check, suture removal 2016 Hospitalization History [place]- Lower back pain 06/20/2017
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
[2018-04-27 01:30] VITALS: BP 130/79
== END 2018-04-27 01:30 | disposition home or self-care (01) ==
LOC: EDUNIT# 00:58 → ER 00:59
DX: K82.9 Disease of gallbladder, unspecified (principal); J43.9 Emphysema, unspecified; I10 Essential (primary) hypertension; K21.9 Gastro-esophageal reflux disease without esophagitis; F20.9 Schizophrenia, unspecified; Z77.22 Contact with and (suspected) exposure to environmental tobacco smoke (acute) (chronic); Z87.19 Personal history of other diseases of the digestive system; Z82.49 Family history of ischemic heart disease and other diseases of the circulatory system
CPT/HCPCS: 99282

== ENCOUNTER 2018-04-29 05:38 | Outpatient (CLI) | payer MEDICARE ==
[~2018-04-29] VITALS: Ht 180.3 cm; Wt 117.9 kg
[2018-04-30] MEDS ORDERED: HYDR-34 PO (18:09)
== END 2018-04-29 11:04 | disposition home or self-care (01) ==
LOC: PREOP 05:38
PROVIDERS: ATTEND Surgery
DX: Z01.818 Encounter for other preprocedural examination (principal)

== ENCOUNTER 2018-04-30 09:36 | Day surgery (SDC) | payer MEDICARE ==
[~2018-04-30] VITALS: Ht 180.3 cm; Wt 117.9 kg
[2018-04-30 09:45] VITALS: BP 134/85
[2018-04-30] MEDS ORDERED: ceFAZolin 2 GM IV Premixed 50 ML IV ONE (09:45)
[2018-04-30] MEDS ORDERED: LACTATED RINGERS 1,000 ML IV PRN (09:45)
--- NOTE | 2018-04-30 09:51 | Progress Note-Pre Operative ---
Pre-Operative Progress Note H&P Reviewed The H&P was reviewed, patient examined and no changes noted. Date Seen by Provider: Apr 30, 2018 Time Seen by Provider: 09:45 Date H&P Reviewed: Apr 30, 2018 Time H&P Reviewed: 09:45 Pre-Operative Diagnosis: sx biliary dyskinesia ANAIS HURTADO MD Apr 30, 2018 09:51
[2018-04-30] MEDS ORDERED: ONDANSETRON 4 MG/2 ML (SDV) Z0FRAN IVP PRN ×2 (10:00→15:30)
[2018-04-30] MEDS ORDERED: oxyCODONE/APAP 5/325MG (PERCOCET 5) TABLET PO PRN (10:00)
[2018-04-30] MEDS ORDERED: morphine INJ 10 MG/ML 1ML (SYR OR VIAL) IVP PRN (10:00)
[2018-04-30] MEDS ORDERED: ACETAMINOPHEN 325 MG TABLET PO PRN (10:00)
--- OUTSIDE RECORDS SUMMARY | 2018-04-30 10:11 | XMS REPORT | Clinical Summary ---
Author Author [facility] Organization [facility] Address Unknown Phone Unavailable Care Team Providers Care Crosstie Inspector Name Role Phone No Pcp, Na PCP Unavailable Source Comments Some departments are not documenting in the electronic medical record. If you do not see the information that you expected, contact Release of Information in the Health Information Management department at [phone] for further assistance in locating additional records.[facility] Allergies No Known Allergies Medications End Date [...] Lot Implanted Type Area Manufactur er 07/13/2018 [id number] / [id number] / [id number] Graft Porcine 14x7in E-Z Derm Sheet Abdomen MOLNLYCKE Mesh Sterile - [id number] HLTH Implanted: Qty: 1 on 12/17/2017 by CARE:Brian Sifuentes MD CARE 10/31/2018 [id number] / [id number] / [id number] Graft Porcine 14x7in E-Z Derm Sheet Abdomen MOLNLYCKE Mesh Sterile - [id number] HLTH Implanted: Qty: 1 on 12/17/2017 by CARE:Brian Sifuentes MD CARE 11/08/2018 [id number] / [id number] / [id number] Graft Porcine 14x7in E-Z Derm Sheet Abdomen MOLNLYCKE Mesh Sterile - [id number] HLTH Implanted: Qty: 1 on 12/17/2017 by CARE:Brian Sifuentes MD CARE 11/08/2018 [id number] / [id number] / [id number] Graft Porcine 14x7in E-Z Derm Sheet Abdomen MOLNLYCKE Mesh Sterile - [id number] HLTH Implanted: Qty: 1 on 12/17/2017 by CARE:Brian Sifuentes MD CARE 11/08/2018 [id number] / [id number] / [id number] Graft Porcine 14x7in E-Z Derm Sheet Abdomen MOLNLYCKE Mesh Sterile - [id number] HLTH Implanted: Qty: 1 on 12/17/2017 by CARE:Brian Sifuentes MD CARE 07/13/2018 [id number] / [id number] / [id number] Graft Porcine 14x7in E-Z Derm Sheet Abdomen MOLNLYCKE Mesh Sterile - [id number] HLTH Implanted: Qty: 1 on 12/17/2017 by CARE:Brian Sifuentes MD CARE Results Not on filefrom Last 3 Months Insurance Payer Benefit Subscriber ID Type Phone Address Plan / Group MEDICARE MEDICARE xxxxxxxxxx Medicare PART A AND B Advance Directives Patient has advance care planning documents, and code status on file. For more information, please contact: [facility] [address] [place] [address] Date Inactivated Comments Code Status Date Activated 01/07/2018 3:33 PM Full Code 12/14/2017 2:59 PM Provider has discussed Code Status No, more discussion w/Patient or Family? needed
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
[2018-04-30] MEDS ORDERED: MIDAZOLAM 2 MG/2 ML (VERSED) VIAL ONE ×2 (11:58→14:27)
[2018-04-30] MEDS ORDERED: MIDAZOLAM 2 MG/2 ML (VERSED) VIAL IVP ONE ×2 (12:15→14:15)
[2018-04-30] MEDS ORDERED: ceFAZolin 2 GM IV Premixed 50 ML ONE (14:11)
[2018-04-30] MEDS ORDERED: BUP/EPI 0.5% 1:200,000 (SENSORCAINE) 30 ML VIAL ONE (14:18)
[2018-04-30] MEDS ORDERED: DEXAMETHASONE 10 MG/ML (DECADRON) 1 ML VIAL ONE (14:27)
[2018-04-30] MEDS ORDERED: SUCCINYLCHOLINE INJ 100 MG/5 ML SYR ONE (14:27)
[2018-04-30] MEDS ORDERED: ONDANSETRON 4 MG/2 ML (SDV) Z0FRAN ONE (14:27)
[2018-04-30] MEDS ORDERED: SEVOFLURANE (ULTANE) 15 ML INHAL SOLN ONE (14:27)
[2018-04-30] MEDS ORDERED: fentaNYL INJECTION 100 MCG/2 ML AMP ONE ×2 (14:27→15:38)
[2018-04-30] MEDS ORDERED: ROCURONIUM 10 MG/ML 5 ML SYRINGE IV ONE (14:27)
[2018-04-30] MEDS ORDERED: proPOfol 200 MG/20 ML (DIPRIVAN) VIAL IV ONE ×2 (14:27→15:33)
--- NOTE | 2018-04-30 14:29 | Discharge Inst-Surgical ---
D/C Lap Instructions-GENESIS Follow Up Appt in 2 weeks Activity as tolerated No driving for 24 hours No driving while on pain medications Incentive Spirometry use every 2 hours while awake Regular Diet Symptoms to Report: Fever over 101 degree F, Nausea/Vomiting Infection Signs and Symptoms to report: Increased redness, Foul odor of wound, Increased drainage Bathing instructions: May shower Operative Area Clean/Dry; Keep incision clean/dry If any problems/questions: Contact your physician or go to Emergency Room ANAIS HURTADO MD Apr 30, 2018 14:29
[2018-04-30] MEDS ORDERED: GLYCOPYRROLATE 0.2 MG/ML (ROBINUL) 2 ML VIAL ONE (15:24)
[2018-04-30] MEDS ORDERED: NEOSTIGMINE 1 MG/ML 5 ML SYRINGE ONE (15:24)
[2018-04-30] MEDS ORDERED: morphine INJ 10 MG/ML 1ML (SYR OR VIAL) IVP ONE (15:30)
[2018-04-30] MEDS ORDERED: HYDROmorphone 2 MG/ML VIAL (DILAUDID) IV ONE (15:30)
[2018-04-30] MEDS ORDERED: RT-ALBUTEROL HFA (VENTOLIN) PER PUFF IH ONE (15:39)
--- NOTE | 2018-04-30 15:45 | Progress Note-Post Operative ---
Post-Operative Progess Note Surgeon (s)/Medicare Biller (s) Surgeon ANAIS HURTADO MD Medicare Biller: yanet dodge PLODDING OPERATOR Pre-Operative Diagnosis sx biliary dyskinesia Post-Operative Diagnosis chronic calculous cholecystitis. Procedure & Operative Findings Date of Procedure 04/30/18 Procedure Performed/Findings laparoscopic cholecystectomy Anesthesia Type GET Estimated Blood Loss Estimated blood loss (mL): minimal Specimens/Packing Specimens Removed gallbladder ANAIS HURTADO MD Apr 30, 2018 15:45
--- NOTE | 2018-04-30 16:25 | Anesthesia-General Post-Op ---
General Patient Condition Mental Status/LOC: Same as Preop Cardiovascular: Satisfactory Nausea/Vomiting: Absent Respiratory: Satisfactory Pain: Controlled Complications: Absent Post Op Complications Complications None Follow Up Care/Instructions Patient Instructions None needed. Anesthesia/Patient Condition Patient Condition Patient is doing well, no complaints, stable vital signs, no apparent adverse anesthesia problems. No complications reported per nursing. HOANG MCADAMS CRNA Apr 30, 2018 16:25
[2018-04-30 17:00] VITALS: BP 134/96
[2018-04-30 17:30] VITALS: BP 145/95
[2018-04-30 18:00] VITALS: BP 126/95
[2018-04-30] MEDS ORDERED: HYDR-34 PO (18:09)
[2018-04-30 18:20] VITALS: BP 126/95
--- NOTE | 2018-05-01 03:56 | OPERATIVE REPORT ---
DATE OF SERVICE: 04/30/2018 ATTENDING PRIMARY CARE PHYSICIAN: Dr. Vance. PREOPERATIVE DIAGNOSIS: Chronic calculous cholecystitis. POSTOPERATIVE DIAGNOSIS: Chronic calculous cholecystitis. PROCEDURE: Laparoscopic cholecystectomy. SURGEON: Anais Hurtado M.D. FURNACE BUILDER: Damion Subramanian APRN. ANESTHESIA: General endotracheal. ESTIMATED BLOOD LOSS: Minimal. FINDINGS: Large and dilated gallbladder with mild gallbladder wall thickening with multiple small gallstones. DISPOSITION: The patient tolerated the procedure well. INDICATIONS: The patient is a 32-year-old male who was seen in the Emergency Department two weeks ago for right upper abdominal quadrant pain. He had stated with sharp and significant in severity. Upon further questioning, he reported that he had some other episodes of pain in the right upper abdominal quadrant usually after eating a meal. An ultrasound was performed, which did show sludge in the gallbladder. His liver function enzymes are normal. DESCRIPTION OF PROCEDURE: The patient was brought to the operating room, laid supine on the table. After adequate IV pain and sedating medications and general endotracheal intubation, the abdomen was prepped and draped in standard surgical fashion. A 0.5% Marcaine with epinephrine was then used to anesthetize the overlying skin in the left upper abdominal quadrant and transverse skin incision made using a 15 blade. An 0 silk suture was applied to the medial aspect of the incision for retraction and a Veress needle inserted with a low opening pressure of 0 mmHg. The abdomen was then insufflated to 15 mmHg pressure. The Veress needle removed and a 5 mm Xcel trocar placed followed by a 5 mm 45-degree angle laparoscope visualizing the peritoneal cavity. A 4-quadrant abdominal exploration was performed. There was a dilated gallbladder as well as a mild gallbladder wall thickening. What was visualized of the liver, stomach, omentum, small bowel appeared normal. Under direct visualization, we then proceed to place a supraumbilical 10 mm port after the skin and peritoneal lining were anesthetized using 0.5% Marcaine with epinephrine and a transverse skin incision made using a 15 blade. In a similar manner, a right upper abdominal quadrant 5 mm port placed. The patient was then placed in reverse Trendelenburg position as well as plane right side up, left side down. The gallbladder was then retracted anteriorly and superiorly. The hepatoduodenal ligament was then opened using blunt dissection as well as electrocautery and blunt dissection using the hook instrument. The entire critical view of safety was identified including the cystic duct and artery as the only two structures going to gallbladder, the triangle of Calot as well as the cystic plate behind the proximal gallbladder. A timeout was then taken and the cystic duct and artery were clipped proximally, distally and cut with EndoShears. The gallbladder was then dissected off the liver bed using electrocautery and hook instrument with visualization of good hemostasis as well as no leaking ducts of Luschka. The gallbladder was removed through the 10 mm port site using an EndoCatch bag. The 10 mm port site fascia and peritoneum were then closed under direct visualization using a Guy-Ariel device and 0 Vicryl suture. The abdomen was desufflated and remaining ports removed. All skin incisions were closed using 4-0 Monocryl running subcuticular sutures. Wounds were then cleaned and covered with Dermabond. The patient tolerated the procedure well. We will start IV and oral pain medications as well as clear liquid diet. Once he is tolerating clears, has good pain control with oral pain medications, ambulating well, we will discharge him home. He will be instructed to do no heavy lifting or exertion for the next two weeks. Job ID: [id number] DocumentID: [id number] Dictated Date: 04/30/2018 15:52:50 Grinder Set Up Operator Jig Date: 05/01/2018 03:55:36 Dictated By: ANAIS HURTADO MD
== END 2018-04-30 18:20 | disposition home or self-care (01) ==
LOC: SDC 09:36
PROVIDERS: ATTEND Surgery
DX: K80.10 Calculus of gallbladder with chronic cholecystitis without obstruction (principal); I10 Essential (primary) hypertension; K21.9 Gastro-esophageal reflux disease without esophagitis; Z87.891 Personal history of nicotine dependence; Z79.899 Other long term (current) drug therapy
CPT/HCPCS: 87081; 94664

== ENCOUNTER 2018-07-23 23:19 | Emergency (ER) | payer MEDICARE, MEDICAID ==
[~2018-07-23] VITALS: Ht 172.7 cm; Wt 117.9 kg
[~2018-07-23 23:19] MED LIST changes: +HYDR-34 PO
--- OUTSIDE RECORDS SUMMARY | 2018-07-23 23:25 | XMS REPORT ---
Author Author Migration, Doctor Organization [facility] Address Unknown Phone Unavailable Care Team Providers Care Home Care Music Therapist Name Role Phone Migration, Doctor Unavailable Unavailable PROBLEMS Type Condition ICD9-CM Code [id number] Code Onset Dates Condition Status SNOMED Code Problem Pain in thoracic spine M54.6 Active 389881723315767 Problem Other chronic pain G89.29 Active 72978964 Problem Unspecified mood [affective] disorder F39 Active 19513609 Problem Hypercholesterolemia E78.00 Active 58032594 Problem Schizophrenia, unspecified type F20.9 Active 39871837 Problem Sprain of right shoulder, unspecified shoulder sprain type, initial encounter S43.401A Active 2167048 ALLERGIES No Information ENCOUNTERS Encounter Location Date Diagnosis [place] [id number] [place] [address]461- 8511 August, [facility] [place] [id number] [place] [address] 40648- 7902 Jul, [facility] [place] [id number] [place] [address] 68090- 2353 Jun, Schizophrenia, unspecified type F20.9 and Unspecified mood [ affective] disorder F39 [facility] [place] [id number] [place] [address] 68606- 6556 Jun, Schizophrenia, unspecified type F20.9 [facility] [place] [id number] [place] [address] 91538- 1764 May, Schizophrenia, unspecified type F20.9 [facility] [place] [id number] [place] [address] 79054- 7336 Apr, Schizophrenia, unspecified type F20.9 [facility] [place] [id number] [place] [address] 61373- 3286 Mar, [facility] [place] [id number] [place] [address] 24636- 4323 Mar, [facility] [place] [id number] [place] [address] 00956- 5943 Feb, Severe muscle deconditioning R29.898 ; Pain in right hand M79.641 ; Pain of left hand M79.642 and Schizophrenia, unspecified type F20.9 [place] [id number] [place] [address] 10946- 8132 Jan, [place] [id number] [place] [address] 58655- 0197 Nov, Unspecified mood [affective] disorder F39 and Schizophrenia , unspecified type F20.9 [place] [id number] [place] [address] 04229- 9565 Oct, Schizophrenia, unspecified type F20.9 [place] [id number] [place] [address] 96837- 8047 Sep, Unspecified mood [affective] disorder F39 and Schizophrenia , unspecified type F20.9 [place] [id number] [place] [address] 98158- 8415 August, Schizophrenia, unspecified type F20.9 [place] [id number] [place] [address] 49884- 0747 August, Sprain of right shoulder, unspecified shoulder sprain type, initial encounter S43.401A ; Pain in thoracic spine M54.6 and Other chronic pain G89.29 [place] [id number] [place] [address] 01413- 7487 Jul, Schizophrenia, unspecified type F20.9 [place] [id number] [place] [address] 68137- 2454 Jun, [place] [id number] [place] [address] 51710- 4480 Jun, Unspecified mood [affective] disorder F39 and Schizophrenia , unspecified type F20.9 [facility] [place] [address] [address] May, Schizophrenia, unspecified type F20.9 and Unspecified mood [ affective] disorder F39 [facility] [place] [id number] [place] [address] 66698- 6131 Apr, Schizophrenia, unspecified type F20.9 and Unspecified mood [ affective] disorder F39 [facility] [id number] [place] [address] 40141 -2261 Sep, [facility] [place] [id number] [place] [address] 13573- 9529 Apr, Unspecified mood [affective] disorder F39 and Schizophrenia , unspecified type F20.9 [facility] [place] [id number] [place] [address] 07169- 0436 Apr, Unspecified mood [affective] disorder F39 ; Essential hypertension I10 ; Gastroesophageal reflux disease, esophagitis presence not specified K21.9 and Hypercholesterolemia E78.00 [facility] [place] [id number] [place] [address] 92411- 1318 Feb, Unspecified mood [affective] disorder F39 [facility] [place] [id number] [place] [address] 80335- 7523 Jan, Unspecified mood [affective] disorder F39 [facility] [place] [id number] [place] [address] 52068- 3873 Feb, Abscess L02.91 [facility] [place] [id number] [place] [address] 37816- 9472 Jul, [facility] [place] [id number] [place] [address] 18622- 8112 Jul, [facility] [place] [id number] [place] [address] 66815- 9722 Jun, [facility] [place] [id number] [place] [address] 80621- 6454 Jun, [facility] [place] [facility] [address] [id number] [place] [address]- 7646 Dec, [facility] [place] [facility] [address] [id number] [place] [address]- 6229 Dec, [facility] [place] [facility] [address] [id number] [place] [address]- 9802 Dec, [facility] [place] [facility] [address] [id number] [place] [address]- 7220 Dec, [facility] [place] [facility] [address] [id number] [place] [address]- 3711 August, [facility] [place] [facility] [address] [id number] [place] [address]- 8004 August, [facility] [place] [facility] [address] [id number] [place] [address]- 8918 August, [facility] [place] [facility] [address] [id number] [place] [address]- 3711 August, [facility] [place] [facility] [address] [id number] [place] [address]- 9639 Jun, [facility] [place] [facility] [address] [id number] [place] [address]- 4565 Jun, [facility] [place] [facility] [address] [id number] [place] [address]- 0187 Jun, [facility] [place] [facility] [address] [id number] [address] 8879 Jun, [facility] [place] [facility] [address] [id number] [place] [address]- 3056 Jan, [facility] [place] [facility] [address] [id number] [place] [address]- 7908 Jan, [facility] [place] [facility] [address] [id number] [place] [address]- 7268 Sep, [facility] [place] [facility] [address] [id number] [address] Jun, [facility] [address] [facility] [id number] [place] [address]- 0442 Jun, [facility] [address] [facility] [id number] [address] Jul, [facility] [address] [place] [address]- 5536 Jul, [facility] [address] [facility] [id number] [place] [address]- 3214 Jul, [facility] [place] [address] [facility] [id number] [place] [address]- 3249 Jul, [facility] [address] [facility] [id number] [place] [address]- 1634 Jul, [facility] [place] [address] [address]- 2735 Jun, [facility] [place] [id number] [place] [address]- 9199 Jun, [facility] [place] [address] [address]- 1698 Jun, [facility] [place] [address], [place] [address]- 2490 Jun, [facility] [place] [id number] [address]- 0472 Apr, [facility] [place] [id number] [address]- 9263 Apr, [facility] [place] [address] [facility] [id number], [place] [address]- 7374 Mar, [facility] [place] [address] [facility] [id number], [place] [address]- 2141 Mar, [facility] [place] [id number] [address]- 4241 Mar, IMMUNIZATIONS No Known Immunizations SOCIAL HISTORY Never Assessed REASON FOR VISIT [facility] [place] PLAN OF CARE VITAL SIGNS MEDICATIONS Medication Instructions Dosage Frequency Start Date End Date Duration Status Lisinopril 10 mg 0.5 tablet by Oral route 1 time per day Dec, Active Fenofibrate 160 mg take 1 tablet (160 mg) by oral route once daily Dec, Active Nexium 20 mg 1 capsule by Oral route 1 time per day 30min before a meal Dec, Active Terbinafine 1 % 1 sandra by Topical route 2 times per day apply vicks 30 min before applying this August, Active Aripiprazole 300 mg inject 300 mg by intramuscular route once a month Jun, Active RESULTS No Results PROCEDURES No Known procedures INSTRUCTIONS MEDICATIONS ADMINISTERED No Known Medications MEDICAL (GENERAL) HISTORY Type Description Date Medical History schizophrenia Medical History anxiety Surgical History knee surgery 2000 Surgical History throat surgery 2013 Hospitalization History multiple stays for infection in R. leg Hospitalization History [facility] 02/2017 Hospitalization History ED [place]- Wound Check, suture removal 2016 Hospitalization History [facility] [place]- Lower back pain 06/20/2017
--- OUTSIDE RECORDS SUMMARY | 2018-07-23 23:25 | XMS REPORT | Clinical Summary ---
Author Author [facility] Organization [facility] Address Unknown Phone Unavailable Care Team Providers Care Delivery Driver Name Role Phone No Pcp, Na PCP Unavailable Source Comments Some departments are not documenting in the electronic medical record. If you do not see the information that you expected, contact Release of Information in the Health Information Management department at [phone] for further assistance in locating additional records.[facility] Allergies No Known Allergies Medications End Date [...] AM CDT Height 198.1 cm (6' 6") 12/19/2017 11:43 AM CDT Body Mass Index 28.76 Plan of Treatment Health Maintenance Due Date Last Done Comments PHYSICAL (COMPREHENSIVE) 10/16/1990 EXAM HIV SCREENING 10/16/1998 DTAP/TDAP VACCINES ( - 10/16/2001 Tdap) INFLUENZA VACCINE 11/12/2018 Implants Device Identifier Shelf Expiration Date Model / Serial / Lot Implanted Type Area Manufactur er 07/13/2018 [id number] / [id number] / [id number] Graft Porcine 14x7in E-Z Derm Sheet Abdomen MOLNLYCKE [employer]esh [employer] - [id number] HLTH Implanted: Qty: 1 on 12/17/2017 by CARE:Brian Sifuentes MD CARE 10/31/2018 [id number] / [id number] / [id number] Graft Porcine 14x7in E-Z Derm Sheet Abdomen [employer]OL[employer]KE [employer] - [id number] HLTH Implanted: Qty: 1 on 12/17/2017 by CARE:Brian Sifuentes MD CARE 11/08/2018 [id number] / [id number] / [id number] Graft Porcine 14x7in E-Z Derm Sheet Abdomen MOL[employer]LYCKE M[employer]ile - [id number] HLTH Implanted: Qty: 1 on 12/17/2017 by CARE:Brian Sifuentes MD CARE 11/08/2018 [id number] / [id number] / [id number] Graft Porcine 14x7in E-Z Derm Sheet Abdomen [employer]OL[employer]KE M[employer]ile - [id number] HLTH Implanted: Qty: 1 on 12/17/2017 by CARE:Brian Sifuentes MD CARE 11/08/2018 [id number] / [id number] / [id number] Graft Porcine 14x7in E-Z Derm Sheet Abdomen [employer] - [id number] HLTH Implanted: Qty: 1 on 12/17/2017 by CARE:Brian Sifuentes MD CARE 07/13/2018 [id number] / [id number] / [id number] Graft Porcine 14x7in E-Z Derm Sheet Abdomen [employer] - [id number] HLTH Implanted: Qty: 1 on 12/17/2017 by CARE:Brian Sifuentes MD CARE Results Not on filefrom Last 3 Months Insurance Type Payer Benefit Subscriber ID Effective Phone Address Plan / Dates Group Medicare MEDICARE MEDICARE xxxxxxxxxx 2014-P PART [place] AND [place] 2017-P [place], [place] Advance Directives Patient has advance care planning documents, and code status on file. For more information, please contact: [facility] [address] [place] [address] Date Inactivated Comments Code Status Date Activated 01/07/2018 3:33 PM Full Code 12/14/2017 2:59 PM Provider has discussed Code Status No, more discussion w/Patient or Family? needed
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
[2018-07-24] MEDS ORDERED: POLY10DR OP (00:21)
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
[2018-07-24 00:40] VITALS: BP 153/89
== END 2018-07-24 00:40 | disposition home or self-care (01) ==
LOC: EDUNIT# 23:19 → ER 23:21
DX: H10.89 Other conjunctivitis (principal); B96.89 Other specified bacterial agents as the cause of diseases classified elsewhere; J43.9 Emphysema, unspecified; I10 Essential (primary) hypertension; E66.9 Obesity, unspecified; F20.9 Schizophrenia, unspecified; K21.9 Gastro-esophageal reflux disease without esophagitis; F17.210 Nicotine dependence, cigarettes, uncomplicated; Z87.19 Personal history of other diseases of the digestive system; Z82.49 Family history of ischemic heart disease and other diseases of the circulatory system; Z93.0 Tracheostomy status; Z98.890 Other specified postprocedural states; Z94.5 Skin transplant status
CPT/HCPCS: 99282

== ENCOUNTER 2019-07-22 17:54 | Emergency (ER) | payer MEDICARE, MEDICAID ==
[~2019-07-22] VITALS: Ht 172.7 cm; Wt 99.8 kg
[2019-07-22 17:54] VITALS: BP 143/88
[~2019-07-22 17:54] MED LIST changes: +POLY10DR OP
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
[2019-07-22 18:09] LABS: BASOPHILS # (AUTO) 0.1 10^3/uL (0.0-0.1); BASOPHILS % (AUTO) 0 % (0-10); EOSINOPHILS # (AUTO) 0.3 10^3/uL (0.0-0.3); EOSINOPHILS % (AUTO) 1 % (0-10); HEMATOCRIT 51 % (40-54); LYMPHOCYTES # (AUTO) 2.8 X 10^3 (1.0-4.0); LYMPHOCYTES % (AUTO) 14 % (12-44); MEAN CORPUSCULAR HEMOGLOBIN 32 PG (25-34); MEAN CORPUSCULAR HGB CONC 35 G/DL (32-36); MEAN CORPUSCULAR VOLUME 91 FL (80-99); MEAN PLATELET VOLUME 8.8 FL (7.4-10.4); MONOCYTES # (AUTO) 1.6 X 10^3 (0.0-1.0); MONOCYTES % (AUTO) 8 % (0-12); NEUTROPHILS # (AUTO) 15.4 X 10^3 (1.8-7.8); NEUTROPHILS % (AUTO) 76 % (42-75); PLATELET COUNT 314 10^3/uL (130-400); RED CELL DISTRIBUTION WIDTH 13.5 % (10.0-14.5); WHITE BLOOD COUNT 20.1 10^3/uL (4.3-11.0)
[2019-07-22 18:20] LABS: CHLORIDE 105 MMOL/L (98-107); POTASSIUM 4.1 MMOL/L (3.6-5.0); SODIUM 138 MMOL/L (135-145)
[2019-07-22 18:21] LABS: CALCIUM 9.5 MG/DL (8.5-10.1); GLUCOSE 118 MG/DL (70-105)
[2019-07-22 18:23] LABS: CARBON DIOXIDE 19 MMOL/L (21-32)
[2019-07-22 18:25] LABS: CREATININE SERUM 0.93 MG/DL (0.60-1.30); GFR ESTIMATED > 60; LYMPHOCYTES % (MANUAL) 11 %; MONOCYTES % (MANUAL) 5 %; NEUTROPHILS % (MANUAL) 84 %; RBC MORPH NORMAL
[2019-07-22 18:26] LABS: BUN/CREATININE RATIO 11
== END 2019-07-22 18:10 | disposition left against medical advice (07) ==
LOC: EDUNIT# 17:54 → ER 17:55
DX: R19.7 Diarrhea, unspecified (principal); I10 Essential (primary) hypertension; K21.9 Gastro-esophageal reflux disease without esophagitis; E66.9 Obesity, unspecified; Z91.14 Patient's other noncompliance with medication regimen; Z77.22 Contact with and (suspected) exposure to environmental tobacco smoke (acute) (chronic); Z82.49 Family history of ischemic heart disease and other diseases of the circulatory system; Z93.0 Tracheostomy status; Z68.33 Body mass index [BMI] 33.0-33.9, adult
CPT/HCPCS: 36415; 80048; 85007; 85027

== ENCOUNTER 2019-12-01 23:41 | Emergency (ER) | payer MEDICARE ==
[2019-12-02] MEDS ORDERED: LACTATED RINGERS 0 ML IV ONE (00:31)
[2019-12-02] MEDS ORDERED: LACTATED RINGERS 1,000 ML IV ONE (01:22)
[2019-12-03 12:51] LABS: HEMATOCRIT 56 % (40-54); MEAN CORPUSCULAR HEMOGLOBIN 35 PG (25-34); MEAN CORPUSCULAR VOLUME 89 FL (80-99); WHITE BLOOD COUNT 18.3 10^3/uL (4.3-11.0)
[2019-12-03 12:52] LABS: BASOPHILS % (AUTO) 0 % (0-10); EOSINOPHILS # (AUTO) 0.1 10^3/uL (0.0-0.3); EOSINOPHILS % (AUTO) 1 % (0-10); LYMPHOCYTES # (AUTO) 2.8 X 10^3 (1.0-4.0); LYMPHOCYTES % (AUTO) 15 % (12-44); MEAN CORPUSCULAR HGB CONC 39 G/DL (32-36); MEAN PLATELET VOLUME 9.2 FL (7.4-10.4); MONOCYTES % (AUTO) 6 % (0-12); NEUTROPHILS # (AUTO) 14.3 X 10^3 (1.8-7.8); NEUTROPHILS % (AUTO) 78 % (42-75); PLATELET COUNT 232 10^3/uL (130-400); RED CELL DISTRIBUTION WIDTH 13.7 % (10.0-14.5)
[2019-12-03 12:54] LABS: BAND NEUTROPHILS 0 %; BASOPHILS % (MANUAL) 0 %; EOSINOPHILS % (MANUAL) 1 %; LYMPHOCYTES % (MANUAL) 15 %; MONOCYTES % (MANUAL) 5 %; NEUTROPHILS % (MANUAL) 79 %
[2019-12-03 12:55] LABS: ANISOCYTOSIS SLIGHT; CHLORIDE 102 MMOL/L (98-107); HYPOCHROMASIA SLIGHT; POTASSIUM 3.7 MMOL/L (3.6-5.0); SODIUM 135 MMOL/L (135-145)
[2019-12-03 12:56] LABS: ALANINE AMINOTRANSFERASE 39 U/L (0-55); ALBUMIN 4.3 GM/DL (3.2-4.5); ALKALINE PHOSPHATASE 148 U/L (40-136); BILIRUBIN,TOTAL 1.2 MG/DL (0.1-1.0); BUN/CREATININE RATIO 13; CALCIUM 9.2 MG/DL (8.5-10.1); CARBON DIOXIDE 19 MMOL/L (21-32); CREATINE KINASE 61 U/L (30-200); GFR ESTIMATED > 60; GLUCOSE 167 MG/DL (70-105); TOTAL PROTEIN 7.6 GM/DL (6.4-8.2)
[2019-12-03 12:57] LABS: CLARITY,URINE CLEAR; COLOR,URINE YELLOW; GLUCOSE, URINE (UA) NEGATIVE (NEGATIVE); PH,URINE 5.5 (5-9); PROTEIN,URINE NEGATIVE (NEGATIVE)
[2019-12-03 12:58] LABS: BACTERIA,URINE NEGATIVE /HPF; BILIRUBIN,URINE NEGATIVE (NEGATIVE); KETONES,URINE NEGATIVE (NEGATIVE); LEUKOCYTE ESTERASE ,URINE NEGATIVE (NEGATIVE); NITRITE,URINE NEGATIVE (NEGATIVE); RBC,URINE 0-2 /HPF; SQUAMOUS EPITHELIAL CELL,UR RARE /HPF; WBC,URINE 0-2 /HPF
[2019-12-03 12:59] LABS: HYALINE CASTS, URINE RARE /LPF
[2019-12-03 13:00] LABS: AMPHETAMINE SCREEN, URINE POSITIVE (NEGATIVE); BARBITURATE SCREEN URINE NEGATIVE (NEGATIVE); BENZODIAZEPINES SCREEN URINE NEGATIVE (NEGATIVE); CANNABINOID SCREEN, URINE NEGATIVE (NEGATIVE); COCAINE SCREEN URINE NEGATIVE (NEGATIVE); METHADONE STAT NEGATIVE (NEGATIVE); METHAMPHETAMINE SCREEN URINE S POSITIVE (NEGATIVE); OPIATE SCREEN URINE NEGATIVE (NEGATIVE); OXYCODONE STAT NEGATIVE (NEGATIVE); PROPOXYPHENE STAT NEGATIVE (NEGATIVE); TRICYCLIC ANTIDEPRESSANTS SCRE NEGATIVE (NEGATIVE)
== END 2019-12-02 01:45 | disposition home or self-care (01) ==
LOC: EDUNIT# 23:41 → ER 23:41
DX: K62.5 Hemorrhage of anus and rectum (principal); E86.0 Dehydration; F15.90 Other stimulant use, unspecified, uncomplicated; F20.9 Schizophrenia, unspecified; Z90.49 Acquired absence of other specified parts of digestive tract
CPT/HCPCS: 80053; 80306; 81000; 82550; 85007; 85027; 93005; 96360; 99284; G0480; 36415; 80320

== ENCOUNTER 2020-06-03 20:05 | Emergency (ER) | payer MEDICARE ==
[~2020-06-03 20:05] MED LIST changes: -CLIN150C17 PO; +CLIN150C18 PO; +LISI10TA25 PO
== END 2020-06-03 20:30 | disposition left against medical advice (07) ==
LOC: EDUNIT# 20:05 → ER 20:07
DX: R10.9 Unspecified abdominal pain (principal)

== ENCOUNTER 2020-06-05 05:28 | Outpatient (RCR) | payer MEDICARE ==
[~2020-06-05] VITALS: Ht 172.7 cm; Wt 122.6 kg
== END 2020-08-22 | disposition home or self-care (01) ==
LOC: PREOP 05:28
PROVIDERS: ATTEND Surgery
DX: Z01.818 Encounter for other preprocedural examination (principal)

== ENCOUNTER 2021-04-26 19:12 | Emergency (ER) | payer MEDICARE ==
[~2021-04-26 19:12] MED LIST changes: -CLIN150C18 PO; +CLIN150C20 PO; -SULF1TAB35 PO; +SULF1TAB38 PO
[2021-04-26] MEDS ORDERED: ASPIRIN 81 MG CHEW (CHILDREN'S ASA) PO ONE (19:30)
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
== END 2021-04-26 19:33 | disposition left against medical advice (07) ==
LOC: EDUNIT# 19:12 → ER 19:19
DX: R07.9 Chest pain, unspecified (principal); I10 Essential (primary) hypertension; E66.9 Obesity, unspecified; Z87.820 Personal history of traumatic brain injury; F17.210 Nicotine dependence, cigarettes, uncomplicated; Z68.41 Body mass index [BMI] 40.0-44.9, adult
CPT/HCPCS: 93005; 93041

== ENCOUNTER 2021-04-26 21:00 | Emergency (ER) | payer MEDICARE | END 2021-04-26 22:17 | disposition left against medical advice (07) | LOC: EDUNIT# 21:00 → ER 21:02 | DX: R07.9 Chest pain, unspecified (principal) ==

== ENCOUNTER 2023-03-07 13:12 | Inpatient (IN) | payer MEDICARE, MEDICAID ==
[~2023-03-07] VITALS: Ht 172 cm; Wt 136.4 kg
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
[2023-03-07 13:38] LABS: BASOPHILS # (AUTO) 0.1 10^3/uL (0.0-0.1); BASOPHILS % (AUTO) 1 % (0-10)
[2023-03-07 13:40] LABS: EOSINOPHILS # (AUTO) 0.2 10^3/uL (0.0-0.3); EOSINOPHILS % (AUTO) 1 % (0-10); HEMATOCRIT 48 % (40-54); LYMPHOCYTES # (AUTO) 2.1 10^3/uL (1.0-4.0); LYMPHOCYTES % (AUTO) 11 % (12-44); MEAN CORPUSCULAR HEMOGLOBIN 32 pg (25-34); MEAN CORPUSCULAR HGB CONC 33 g/dL (32-36); MEAN CORPUSCULAR VOLUME 95 fL (80-99); MEAN PLATELET VOLUME 9.1 fL (9.0-12.2); MONOCYTES # (AUTO) 1.5 10^3/uL (0.0-1.0); MONOCYTES % (AUTO) 8 % (0-12); NEUTROPHILS # (AUTO) 15.1 10^3/uL (1.8-7.8); NEUTROPHILS % (AUTO) 79 % (42-75); PLATELET COUNT 205 10^3/uL (130-400); WHITE BLOOD COUNT 19.1 10^3/uL (4.3-11.0)
[2023-03-07 13:44] LABS: ALBUMIN 3.6 GM/DL (3.2-4.5)
[2023-03-07 13:45] LABS: POTASSIUM 4.5 MMOL/L (3.6-5.0)
[2023-03-07 13:47] LABS: TOTAL PROTEIN 6.6 GM/DL (6.4-8.2)
[2023-03-07 13:49] LABS: BILIRUBIN,TOTAL 0.9 MG/DL (0.1-1.0)
[2023-03-07 13:51] LABS: CREATININE SERUM 0.94 MG/DL (0.60-1.30)
[2023-03-07 13:53] LABS: MAGNESIUM 2.1 MG/DL (1.6-2.4)
[2023-03-07 13:54] LABS: EOSINOPHILS % (MANUAL) 2 %; LYMPHOCYTES % (MANUAL) 16 %; MONOCYTES % (MANUAL) 6 %; NEUTROPHILS % (MANUAL) 76 %; RBC MORPH NORMAL
--- NOTE | 2023-03-07 14:00 | Diagnostic Imaging Report ---
CHEST PA/LAT (2 VIEW) Indication: Shortness of breath Comparison: 04/14/2018 Findings: Cardiac silhouette is nonenlarged. Bilateral interstitial and central pulmonary opacities are noted. No pleural effusion or pneumothorax. Impression: Enlarged cardiac silhouette with central opacities are most likely due to congestive heart failure. Alternatively, pericardial effusion and atypical infection could give this appearance. Dictated by: Dictated on workstation # [id number]
[2023-03-07 14:14] LABS: AMPHETAMINE SCREEN, URINE POSITIVE (NEGATIVE); BARBITURATE SCREEN URINE NEGATIVE (NEGATIVE); CANNABINOID SCREEN, URINE NEGATIVE (NEGATIVE); COCAINE SCREEN URINE NEGATIVE (NEGATIVE); METHADONE STAT NEGATIVE (NEGATIVE); OPIATE SCREEN URINE NEGATIVE (NEGATIVE); OXYCODONE STAT NEGATIVE (NEGATIVE); TRICYCLIC ANTIDEPRESSANTS SCRE NEGATIVE (NEGATIVE)
[2023-03-07] MEDS ORDERED: HOLD METFORMIN - RECEIVED CONTRAST 20 ML VIAL IV SCH (14:15)
[2023-03-07] MEDS ORDERED: IOHEXOL 350 MG/ML 100 ML (OMNIPAQUE 350) VIAL IV ONE (14:15)
[2023-03-07] MEDS ORDERED: NS 100 ML (IVPB) BAG IV ONE (14:15)
--- NOTE | 2023-03-07 14:56 | Diagnostic Imaging Report ---
EXAMINATION: Axial postcontrast CT of the chest obtained utilizing the protocol TECHNIQUE: Axial postcontrast CT of the chest obtained utilizing the protocol . Coronal and sagittal reformats reconstructed. MIP Reconstructions performed.. Auto Exposure Controls were utilized during the CT exam to meet ALARA standards for radiation dose reduction. HISTORY: soa, elevated d-dimer COMPARISON: None available. FINDINGS: Normal caliber pulmonary artery. No acute pulmonary emboli. Heart is enlarged. No pericardial effusion. Bibasilar subsegmental atelectasis. There is no edema or pneumonia. There are small bilateral pleural effusions.. No pneumothorax. No suspicious nodules. There is no axillary or supraclavicular lymphadenopathy. There is no mediastinal lymphadenopathy. Heart size is normal. There are mild coronary artery calcifications. No pericardial effusion. Aorta is normal in caliber. Included views of the abdomen demonstrates postcholecystectomy changes. There are no suspicious osseus lesions. IMPRESSION: No acute pulmonary emboli. No focal consolidation or vannesa pulmonary edema. Small bilateral pleural effusions with associated bibasilar subsegmental atelectasis. Cardiomegaly. Dictated by: Dictated on workstation # [id number]
[2023-03-07] MEDS ORDERED: FUROSEMIDE INJECTION 40 MG/4 ML VIAL IVP ONE (15:30)
[2023-03-07] MEDS ORDERED: hydrOXYzine 25 MG CAPSULE PO ONE (16:00)
[2023-03-07] MEDS ORDERED: ONDANSETRON INJECTION 4 MG/2 ML (SDV) IV PRN (17:15)
[2023-03-07] MEDS ORDERED: MILK OF MAGNESIA 400 MG/5 ML 30 ML UDC PO PRN (17:15)
[2023-03-07] MEDS ORDERED: DexMEDEtomidine 1,000mcg/250ml 250 ML IV SCH (17:15)
[2023-03-07] MEDS ORDERED: CALCIUM CARBONATE 500 MG CHEW TABLET PO PRN (17:15)
[2023-03-07] MEDS ORDERED: LACTULOSE SYRUP 10GM/15ML 30ML UDC PO PRN (17:15)
[2023-03-07] MEDS ORDERED: HYDROmorphone INJECTION 2 MG/ML VIAL IV PRN (17:15)
[2023-03-07] MEDS ORDERED: diphenhydrAMINE 25 MG TABLET PO PRN (17:15)
[2023-03-07] MEDS ORDERED: MELATONIN 3 MG TABLET PO PRN (17:15)
[2023-03-07] MEDS ORDERED: BISACODYL 10 MG SUPPOSITORY PR PRN (17:15)
[2023-03-07] MEDS ORDERED: ANTACID SUSPENSION 30 ML UDC PO PRN (17:15)
[2023-03-07] MEDS ORDERED: NS IV 500 ML 500 ML IV PRN (17:15)
[2023-03-07] MEDS ORDERED: oxyCODONE IMMEDIATE RELEASE 5 MG TABLET PO PRN (17:15)
[2023-03-07] MEDS ORDERED: ONDANSETRON 4 MG ORAL DISSOLVE TABLET PO PRN (17:15)
[2023-03-07] MEDS ORDERED: diphenhydrAMINE INJ 50 MG/ML VIAL IVP PRN (17:15)
[2023-03-07] MEDS ORDERED: ACETAMINOPHEN 325 MG TABLET PO PRN (17:15)
[2023-03-07] MEDS ORDERED: FUROSEMIDE INJECTION 40 MG/4 ML VIAL IV SCH (17:30)
--- NOTE | 2023-03-07 17:44 | Consultation-Cardiology ---
HPI-Cardiology Cardiology Consultation: Date of Consultation 03/07/23 Date of Admission Attending Physician [place],Local Physician Admitting Physician Admitting Physician: Phyllis Montenegro DO Attending Physician: Phyllis Montenegro DO Consulting Physician KACI RAY MD HPI: Time Seen by a Provider: 17:39 Chief Complaint: Progressive shortness of breath and swelling with lower extremity claudication 37 year old male with reported history of PVD, CAD , heavy smoker recently reported stopped , positive for amphetmaines on tox screen here with progressive shortness of breath worsening over past couple weeks and lower extremity discomfort on exertion. ECG with Sinus tach , incomplete left bundle branch pattern , possible atrial enlargement, no prior echo on system , first troponin and BNP mildly elevated. CTA chest ruled out PE and mentioned no significant pulmonary edema. On arrival patient was hypoxic with concern of COPD exacerbation and nstemi admitted for further management Review of Systems-Cardiology Review of Systems Respiratory: no symptoms reported, As described under HPI, cough, orthopnea, shortness of breath, SOB with excertion, SOB at rest, stridor, wheezing, other Cardiovascular: no symptoms reported, As described under HPI, chest pain, edema, irregular heart rate, lightheadedness, palpitations, syncope, other JHZ-Ogtksw-Ieabrq Hx Patient Social History Smoking Status: Former Smoker 2nd Hand Smoke Exposure: Yes Alcohol Use?: No Substance type: Methamphetamine Pt feels they are or have been: No Tobacco type used: Cigarettes Immunizations Up To Date Tetanus Booster (TDap): Less than 5yrs Past Medical History PMH As described under Assessment. Family Medical History Family History: Diabetes mellitus Maternal Grandfather, Onset:Unknown FH: heart disease Maternal Grandfather, Onset:Unknown Gout Maternal Grandfather, Onset:Unknown Hypertension Maternal Grandfather, Onset:Unknown Uncle, Onset:Unknown Allergies and Home Medications Allergies Coded Allergies: No Known Drug Allergies (Unverified , 08/21/16) Patient Home Medication List Home Medication List Reviewed: Yes Exam Vital Signs Vital Signs Date Time Temp Pulse Resp B/P (MAP) Pulse Ox O2 Delivery O2 Flow Rate FiO2 03/07/23 17:12 36.2 112 22 113/70 (84) 93 Room Air Physical Exam normocephalic large neck, no sig JVD Chest with poor inspiratory effort no cardiac murmurs appreciated distended abdomen palpable distal pulses but decreased +1 Labs Laboratory Tests Test 03/07/23 13:20 03/07/23 13:57 Range/Units White Blood Count 19.1 H 4.3-11.0 10^3/uL Red Blood Count 5.06 4.30-5.52 10^6/uL Hemoglobin 16.0 13.3-17.7 g/dL Hematocrit 48 40-54 % Mean Corpuscular Volume 95 80-99 fL Mean Corpuscular Hemoglobin 32 25-34 pg Mean Corpuscular Hemoglobin Concent 33 32-36 g/dL Red Cell Distribution Width 13.5 10.0-14.5 % Platelet Count 205 130-400 10^3/uL Mean Platelet Volume 9.1 9.0-12.2 fL Immature Granulocyte % (Auto) 1 % Neutrophils (%) (Auto) 79 H 42-75 % Lymphocytes (%) (Auto) 11 L 12-44 % Monocytes (%) (Auto) 8 0-12 % Eosinophils (%) (Auto) 1 0-10 % Basophils (%) (Auto) 1 0-10 % Neutrophils # (Auto) 15.1 H 1.8-7.8 10^3/uL Lymphocytes # (Auto) 2.1 1.0-4.0 10^3/uL Monocytes # (Auto) 1.5 H 0.0-1.0 10^3/uL Eosinophils # (Auto) 0.2 0.0-0.3 10^3/uL Basophils # (Auto) 0.1 0.0-0.1 10^3/uL Immature Granulocyte # (Auto) 0.2 H 0.0-0.1 10^3/uL Neutrophils % (Manual) 76 % Lymphocytes % (Manual) 16 % Monocytes % (Manual) 6 % Eosinophils % (Manual) 2 % Percent Immature Platelet Fraction 2.2 0.0-7.6 % Blood Morphology Comment NORMAL D-Dimer 0.72 H 0.00-0.49 UG/ML Sodium Level 136 135-145 MMOL/L Potassium Level 4.5 3.6-5.0 MMOL/L Chloride Level 107 98-107 MMOL/L Carbon Dioxide Level 21 21-32 MMOL/L Anion Gap 8 5-14 MMOL/L Blood Urea Nitrogen 17 7-18 MG/DL Creatinine 0.94 0.60-1.30 MG/DL Estimat Glomerular Filtration Rate 106 BUN/Creatinine Ratio 18 Glucose Level 96 70-105 MG/DL Calcium Level 9.0 8.5-10.1 MG/DL Corrected Calcium 9.3 8.5-10.1 MG/DL Magnesium Level 2.1 1.6-2.4 MG/DL Total Bilirubin 0.9 0.1-1.0 MG/DL Aspartate Amino Transf (AST/SGOT) 22 5-34 U/L Alanine Aminotransferase (ALT/SGPT) 30 0-55 U/L Alkaline Phosphatase 98 40-136 U/L Troponin I 0.051 H <0.028 NG/ML B-Type Natriuretic Peptide 549.6 H <100.0 PG/ML Total Protein 6.6 6.4-8.2 GM/DL Albumin 3.6 3.2-4.5 GM/DL Urine Opiates Screen NEGATIVE NEGATIVE Urine Oxycodone Screen NEGATIVE NEGATIVE Urine Methadone Screen NEGATIVE NEGATIVE Urine Barbiturates Screen NEGATIVE NEGATIVE Ur Tricyclic Antidepressants Screen NEGATIVE NEGATIVE Urine Phencyclidine Screen NEGATIVE NEGATIVE Urine Amphetamines Screen POSITIVE H NEGATIVE Urine Methamphetamines Screen POSITIVE H NEGATIVE Urine Benzodiazepines Screen NEGATIVE NEGATIVE Urine Cocaine Screen NEGATIVE NEGATIVE Urine Cannabinoids Screen NEGATIVE NEGATIVE Radiology CTA and CXR reviewed ECG Impression ECG Initial ECG Impression Date: Mar 07, 2023 Initial ECG Rate: 119 Initial ECG Rhythm: S.Tach Initial ECG Intervals: QRS Initial ECG Intervals incomplete LBBB Initial ECG Impression: Nonspecific Changes Initial ECG Comparisson: No Previous ECG Available Diagnosis/Problems Diagnosis/Problems (1) Non-ST elevation myocardial infarction (NSTEMI) (2) PAD (peripheral artery disease) (3) COPD exacerbation (4) Congestive heart failure of unknown etiology (5) CHF exacerbation A/P-Cardiology Assessment/Admission Diagnosis NSTEMI likely to demand ischemia type II Significant early CAD family history in first degree relatives with CAD risk factors and symptoms CHF on unknown etiology at this time COPD exacerbation Plan: Trend troponins till peak Give heparin full dose lovenox today Start patient on aspirin 81 mg qd Obtain Lipid panel , A1C , Thyroid function panel Likely underlying sleep apnea Admitted to ICU with plans for likely coronary angiography Friday pending clinical progress and biomarkers Discussed with team, patient and family and all agreeable , risks and benefits thoroughly discussed patient would like to proceed Plan as above KACI RAY MD Mar 07, 2023 17:44
[2023-03-07] MEDS ORDERED: ENOXAPARIN 40 MG/0.4 ML SYRINGE SC SCH (18:00)
--- NOTE | 2023-03-07 18:17 | Tele-ICU Progress Note ---
Subjective Date Seen by a Provider: Mar 07, 2023 Time Seen by a Provider: 18:16 Subjective/Events-last exam (Tele-ICU Physician , consultation as per request of PCP Service provided via interactive audio and video telecommunications E-CARE system to a patient admitted to ICU bed in [facility]. Available chart/ vitals / labs / Images reviewed H&P is from ER notes Patient's information available about PMH, Shx, Fhx allergy reviewed inEMR. ROS as per chart and RN report Now in ICU, hemodynamically stable Video assessment done using teleICU camera, rest of exam as per RN Discussed with RN. Hospital course: A/P Dispnea - was tx for 1 week with prednisone and br-dilators - ( no established dx of COPD , but smokes - CTA - NEG for pe , no pna - most likely due to CHF/ VPO with 16ln weigh gain - diuresis NSTEMI likely to demand ischemia type II CHF on unknown etiology - cards consulted - follow recom Suspectred COPD - was on sterooids - can increase fluid retention - monitor for me - patient is on RA Leukocytosis - steroids iduced ? Methamphetamine user - last dose - night prior to admission TBI 6 y ago Lines : , (Central Line Necessity Reviewed) Malhotra:void OG: Nutrition: Analgesia: Anxiety/ delirium VTE Prophylaxis: latonya 40 Stress Ulcer Prophylaxis: na Plans in collaboration with bedside consultants and IM MDs. Discussed with RN to reach out if any questions or concerns A total of 20 minutes of critical care time was devoted to this patient today, required to treat and/or prevent further deterioration of critical care condit ion ( as above ) . I am remotely monitoring this patient from another state. I am unable to do the bedside exam, and history/physical and pertinent information is taken from other notes in the computer and bedside staff. . Sepsis Event Evaluation Height, Weight, BMI Height: 5'8.00" Weight: 260lbs. 0.0oz. 117.982639yq; 49.92 BMI Method:Stated Exam Exam Patient acknowledged, consented, and participated in this virtual visit which was conducted using real time audio/video Vital Signs Date Time Temp Pulse Resp B/P (MAP) Pulse Ox O2 Delivery O2 Flow Rate FiO2 03/07/23 17:12 36.2 112 22 113/70 (84) 93 Room Air 11/24/23 17:00 115 03/07/23 16:40 114 18 134/90 95 03/07/23 13:12 35.1 121 35 133/91 (105) 94 Height & Weight Height: 5'8.00" Weight: 260lbs. 0.0oz. 117.983094vp; 49.92 BMI Method:Stated General Appearance: Other Capillary Refill: Less Than 3 Seconds Gastrointestinal: other (1+ pitting edema in abdomen) Results Lab Laboratory Tests 03/07/23 13:20 Assessment/Plan Assessment/Plan 1 MARTIN HOFFMAN MD Mar 07, 2023 18:17
[2023-03-07] MEDS ORDERED: SERT-414 PO (18:18)
[2023-03-07] MEDS ORDERED: [UNRECOGNIZED DRUG - CODE] (18:18)
[2023-03-07] MEDS ORDERED: IBUP-1780 PO (18:18)
[2023-03-07] MEDS ORDERED: ASPI-999 PO (18:18)
[2023-03-07] MEDS ORDERED: DEUT12TA PO (18:18)
[2023-03-07] MEDS ORDERED: LISI10TA25 PO (18:18)
[2023-03-07] MEDS ORDERED: CLN.1T PO (18:18)
[2023-03-07] MEDS ORDERED: HYDR50TA76 PO (18:18)
[2023-03-07] MEDS ORDERED: ENOXAPARIN 100 MG/1 ML SYRINGE SC SCH (19:15)
[2023-03-07] MEDS ORDERED: ENOXAPARIN 100 MG/1 ML SYRINGE SC NR (19:30)
[2023-03-07] MEDS: DOCUSATE SODIUM 100 MG CAPSULE PO SCH (20:15)
[2023-03-07] MEDS: FUROSEMIDE INJECTION 40 MG/4 ML VIAL IV SCH (20:15)
[2023-03-07] MEDS: SENNOSIDES 8.6 MG TABLET PO SCH (20:16)
[2023-03-07] MEDS ORDERED: RT-Ipratropium/Albuterol NEB 3 ML VIAL INH PRN (22:00)
[2023-03-08 04:15] LABS: BASOPHILS # (AUTO) 0.1 10^3/uL (0.0-0.1); BASOPHILS % (AUTO) 1 % (0-10); EOSINOPHILS # (AUTO) 0.5 10^3/uL (0.0-0.3); EOSINOPHILS % (AUTO) 3 % (0-10); HEMATOCRIT 45 % (40-54); HEMOGLOBIN 15.1 g/dL (13.3-17.7); LYMPHOCYTES # (AUTO) 2.2 10^3/uL (1.0-4.0); LYMPHOCYTES % (AUTO) 13 % (12-44); MEAN CORPUSCULAR HEMOGLOBIN 31 pg (25-34); MEAN CORPUSCULAR HGB CONC 34 g/dL (32-36); MEAN CORPUSCULAR VOLUME 93 fL (80-99); MEAN PLATELET VOLUME 9.6 fL (9.0-12.2); MONOCYTES # (AUTO) 1.3 10^3/uL (0.0-1.0); MONOCYTES % (AUTO) 8 % (0-12); NEUTROPHILS # (AUTO) 12.3 10^3/uL (1.8-7.8); NEUTROPHILS % (AUTO) 75 % (42-75); PLATELET COUNT 293 10^3/uL (130-400); WHITE BLOOD COUNT 16.4 10^3/uL (4.3-11.0)
[2023-03-08 04:45] LABS: ALBUMIN 3.4 GM/DL (3.2-4.5); BILIRUBIN,TOTAL 0.9 MG/DL (0.1-1.0); CALCIUM 8.5 MG/DL (8.5-10.1); CREATININE SERUM 1.12 MG/DL (0.60-1.30); MAGNESIUM 1.7 MG/DL (1.6-2.4); PHOSPHORUS 3.8 MG/DL (2.3-4.7); POTASSIUM 3.8 MMOL/L (3.6-5.0)
[2023-03-08] MEDS: MAGNESIUM 1 GM/100 ML IVPB 100 ML IV SCH ×3 (04:49→07:40)
[2023-03-08] MEDS: POTASSIUM CHLORIDE 20 MEQ TABLET PO SCH (04:49)
[2023-03-08] MEDS: POTASSIUM CL 10MEQ/50ML IVPB 50 ML IV SCH (04:49)
[2023-03-08] MEDS: FUROSEMIDE INJECTION 40 MG/4 ML VIAL IV SCH ×2 (05:29→17:27)
--- NOTE | 2023-03-08 06:28 | History & Physical-Hospitalist ---
History of Present Illness HPI/Chief Complaint Chief complaint: Shortness of breath with meth use HPI: This is a 37-year-old male known methamphetamine user with a history of CHF noncompliant with medication who presented to the ER with shortness of breath found to have volume overload and exacerbation of CHF with meth use. Currently he is stable and receiving IV Lasix. Cardiology consulted. He has obvious severe sleep apnea with severe hypoxia when he sleeping. Source: patient Exam Limitations: no limitations Date Seen 03/08/23 Time Seen by a Provider: 11:00 Attending Physician No,Local Physician PCP Admitting Physician: Phyllis Montenegro DO Attending Physician: Phyllis Montenegro DO Referring Physician Date of Admission Mar 07, 2023 at 16:48 Home Medications & Allergies Home Medications Reviewed patient Home Medication Reconciliation performed by pharmacy medication reconciliations pool technician and/or nursing. Patients Allergies have been reviewed. Allergies Allergies Coded Allergies No Known Drug Allergies (Unverified08/21/16) Past Yjzcyzx-Fducqo-Wrobwh Hx Patient Social History Marrital Status: single Employed/Student: unemployed Tobacco Use?: No Tobacco type used: Cigarettes Smoking Status: Former Smoker Use of E-Cig and/or Vaping dev: No Substance use?: Yes Substance type: Methamphetamine Additional substance use comme: STATES USED METH 2 DAYS AGO Substance frequency: Couple times a week Alcohol Use?: No Pt feels they are or have been: No Immunizations Up To Date First/Initial COVID19 Vaccinat: YES Tetanus Booster (TDap): Less Than 5 Years Seasonal Allergies Seasonal Allergies: No Current Status Advance Directives: No Communicates: Verbally Primary Language: [place] Preferred Spoken Language: [place] Is interpretation needed?: No Implanted or Applied Medical D: None Past Medical History Surgeries: Abdominal, Gallbladder, Orthopedic, Tracheostomy Emphysema Chronic Edema/Swelling, Hypertension Concussion Sexually Transmitted Disease: No HIV/AIDS: No Gastroesophageal Reflux, Ulcer, Gall Bladder Disease Schizophrenia Recent Skin Changes Blood Disorders: No Past medical history 1. Chronic schizophrenia 2. Hypertension 3. Hyperlipidemia 4. Gastroesophageal reflux disease Family Medical History Diabetes mellitus Maternal Grandfather, Onset:Unknown FH: heart disease Maternal Grandfather, Onset:Unknown Gout Maternal Grandfather, Onset:Unknown Hypertension Maternal Grandfather, Onset:Unknown Uncle, Onset:Unknown No Pertinent Family Hx Review of Systems Constitutional: see HPI Respiratory: dyspnea on exertion Physical Exam Physical Exam Vital Signs Vital Signs - First Documented 03/07/23 03/07/23 03/08/23 13:12 16:45 12:51 Temp 35.1 Pulse 121 Resp 35 B/P (MAP) 133/91 (105) Pulse Ox 94 O2 Delivery Room Air FiO2 35 Capillary Refill : Less Than 3 Seconds Height, Weight, BMI Height: 5'8.00" Weight: 260lbs. 0.0oz. 117.571818kh; 49.28 BMI Method:Stated General Appearance: No Apparent Distress, Chronically ill, Obese, Other (Sleeping deeply) Respiratory: Lungs Clear, Normal Breath Sounds Cardiovascular: Regular Rate, Rhythm Results Results/Procedures Labs Laboratory Tests 03/07/23 13:20 03/08/23 03:37 03/09/23 03:53 Patient resulted labs reviewed. Assessment/Plan Admission Diagnosis Assessment: Acute hypoxic respiratory failure Exacerbation of CHF Methamphetamine use with withdrawal Obvious sleep apnea with hypoxia when sleeping Noncompliance Morbid obesity BMI 47 Plan: ICU Precedex if needed Cardiology consult appreciated Admission Status: Observation PHYLLIS MONTENEGRO DO Mar 08, 2023 06:28
--- NOTE | 2023-03-08 07:09 | Diagnostic Imaging Report ---
INDICATION: Dyspnea, follow-up heart failure. COMPARISON: 03/07/2023. DISCUSSION: 2 frontal views of the chest were obtained. Cardiomegaly is stable. Moderate to severe pulmonary edema is again noted diffusely. No pleural fluid or pneumothorax. No osseous abnormality. IMPRESSION: 1. Stable changes of failure. Dictated by: Dictated on workstation # [id number]
[2023-03-08] MEDS: RT-Ipratropium/Albuterol NEB 3 ML VIAL INH SCH ×2 (07:46→21:44)
[2023-03-08] MEDS ORDERED: POTASSIUM CHLORIDE 20 MEQ TABLET PO ONE (08:00)
--- NOTE | 2023-03-08 08:30 | Tele-ICU Progress Note ---
Progress Note Video Rounds completed 37 y/o with hx of trach and PEG and TBI admitted with SOB and possible CHF Being followed by cardiology diagnosted with NSTEMI Plan for skilled labor tomorow (Tele-ICU Physician , consultation as per request of PCP Service provided via interactive audio and video telecommunications E-CARE system to a patient admitted to ICU bed in [facility]. Available chart/ vitals / labs / Images reviewed H&P is from ER notes Patient's information available about PMH, Shx, Fhx allergy reviewed inEMR. ROS as per chart and RN report Now in ICU, hemodynamically stable Video assessment done using teleICU camera, rest of exam as per RN Discussed with RN. Hospital course: cardiology on consult Cath Tomorrow ? A/P Dyspnea - was tx for 1 week with prednisone and br-dilators - ( no established dx of COPD , but smokes - CTA - NEG for PE or PNA - most likely due to CHF - diuresis NSTEMI likely to demand ischemia type II CHF on unknown etiology - cards consulted - on full dose lovenox Suspectred COPD - was on sterooids - can increase fluid retention - monitor for me - patient is on RA Leukocytosis - improving Methamphetamine user - last dose - night prior to admission TBI 6 y ago Stress Ulcer Prophylaxis: na IMP: likely CHF and NSTEMI PLAN: per cardiology, cath tomorrow? Plans in collaboration with bedside consultants and IM MDs. Discussed with RN to reach out if any questions or concerns A total of 15 minutes of critical care time was devoted to this patient today, required to treat and/or prevent further deterioration of critical care condition ( as above ) . I am remotely monitoring this patient from another state. I am unable to do the bedside exam, and history/physical and pertinent information is taken from other notes in the computer and bedside staff. . Focused Exam Height, Weight, BMI Height: 5'8.00" Weight: 260lbs. 0.0oz. 117.845546as; 49.28 BMI Method:Stated Labs Laboratory Tests 03/07/23 13:20 03/08/23 03:37 Results Results/Procedures Labs Laboratory Tests 03/07/23 13:20 03/08/23 03:37 Patient resulted labs reviewed. Results Labs Labs Laboratory Tests 03/07/23 13:20: White Blood Count 19.1H, Red Blood Count 5.06, Hemoglobin 16.0, Hematocrit 48, Mean Corpuscular Volume 95, Mean Corpuscular Hemoglobin 32, Mean Corpuscular H emoglobin Concent 33, Red Cell Distribution Width 13.5, Platelet Count 205, Mean Platelet Volume 9.1, Immature Granulocyte % (Auto) 1, Neutrophils (%) (Auto) 79H , Lymphocytes (%) (Auto) 11L, Monocytes (%) (Auto) 8, Eosinophils (%) (Auto) 1, Basophils (%) (Auto) 1, Neutrophils # (Auto) 15.1H, Lymphocytes # (Auto) 2.1, Monocytes # (Auto) 1.5H, Eosinophils # (Auto) 0.2, Basophils # (Auto) 0.1, Immature Granulocyte # (Auto) 0.2H, Neutrophils % (Manual) 76, Lymphocytes % (Manual) 16, Monocytes % (Manual) 6, Eosinophils % (Manual) 2, Percent Immature Platelet Fraction 2.2, Blood Morphology Comment NORMAL, D-Dimer 0.72H, Sodium Level 136, Potassium Level 4.5, Chloride Level 107, Carbon Dioxide Level 21, Anion Gap 8, Blood Urea Nitrogen 17, Creatinine 0.94, Estimat Glomerular Filtration Rate 106, BUN/Creatinine Ratio 18, Glucose Level 96, Calcium Level 9.0, Corrected Calcium 9.3, Magnesium Level 2.1, Total Bilirubin 0.9, Aspartate Amino Transf (AST/SGOT) 22, Alanine Aminotransferase (ALT/SGPT) 30, Alkaline Phosphatase 98, Troponin I 0.051H, B-Type Natriuretic Peptide 549.6H, Total Protein 6.6, Albumin 3.6 03/07/23 13:57: Urine Opiates Screen NEGATIVE, Urine Oxycodone Screen NEGATIVE, Urine Methadone Screen NEGATIVE, Urine Barbiturates Screen NEGATIVE, Ur Tricyclic Antidepressants Screen NEGATIVE, Urine Phencyclidine Screen NEGATIVE, Urine Amphetamines Screen POSITIVEH, Urine Methamphetamines Screen POSITIVEH, Urine Benzodiazepines Screen NEGATIVE, Urine Cocaine Screen NEGATIVE, Urine Cannabinoids Screen NEGATIVE 03/07/23 19:25: 03/07/23 19:35: Troponin I 0.052H, Thyroid Stimulating Hormone (TSH) 1.47 03/08/23 03:37: White Blood Count 16.4H, Red Blood Count 4.85, Hemoglobin 15.1, Hematocrit 45, Mean Corpuscular Volume 93, Mean Corpuscular Hemoglobin 31, Mean Corpuscular Hemoglobin Concent 34, Red Cell Distribution Width 13.4, Platelet Count 293, Mean Platelet Volume 9.6, Immature Granulocyte % (Auto) 1, Neutrophils (%) (Auto) 75, Lymphocytes (%) (Auto) 13, Monocytes (%) (Auto) 8, Eosinophils (%) ( Auto) 3, Basophils (%) (Auto) 1, Neutrophils # (Auto) 12.3H, Lymphocytes # (Aut o) 2.2, Monocytes # (Auto) 1.3H, Eosinophils # (Auto) 0.5H, Basophils # (Auto) 0.1, Immature Granulocyte # (Auto) 0.2H, Sodium Level 140, Potassium Level 3.8, Chloride Level 105, Carbon Dioxide Level 21, Anion Gap 14, Blood Urea Nitrogen 19H, Creatinine 1.12, Estimat Glomerular Filtration Rate 86, BUN/Creatinine Ra christian 17, Glucose Level 116H, Calcium Level 8.5, Corrected Calcium 9.0, Phosphorus Level 3.8, Magnesium Level 1.7, Total Bilirubin 0.9, Aspartate Amino Transf (AST/SGOT) 22, Alanine Aminotransferase (ALT/SGPT) 27, Alkaline Phosphatase 91, Troponin I 0.041H, Total Protein 6.0L, Albumin 3.4, Triglycerides Level 237H, C holesterol Level 157, LDL Cholesterol Direct 108, VLDL Cholesterol 47H, HDL Cholesterol 33L KARISSA NEGRO MD Mar 08, 2023 08:30
[2023-03-08] MEDS: DOCUSATE SODIUM 100 MG CAPSULE PO SCH ×2 (08:32→20:27)
[2023-03-08] MEDS: SENNOSIDES 8.6 MG TABLET PO SCH ×2 (08:33→20:27)
[2023-03-08] MEDS: ASPIRIN enteric coated 81MG TABLET PO SCH (08:45)
[2023-03-08] MEDS: ENOXAPARIN 150 MG/ML SYRINGE SQ SCH ×2 (08:45→18:45)
[2023-03-08 11:55] VITALS: BP 130/56
--- NOTE | 2023-03-08 12:39 | Cardiology Progress Note ---
Cardiology Progess Note Progress Date Seen by Provider: Mar 08, 2023 Time Seen by Provider: 09:00 Patient in bed comfortable no acute overnight events . troponins peaked at 0.0.5 trending down Focused Exam Respiratory: Rales, Rhonci Cardiovascular: Tachycardia Peripheral Pulses: 3+ Carotid (R), 3+ Carotid (L), 3+ Femoral (R), 3+ Femoral (L), 3+ Dorsalis Pedis (R), 3+ Left Dors-Pedis (L), 3+ Radial Pulses (R), 3+ Radial Pulses (L) Skin: warm/dry A/P-Cardiology Assessment/Plan Plan -Continue with COPD management per ICU , Internal Medicine teams -Regarding possible underlying CAD will plan for stress test either Friday or as outpatient pending progression -Given history of medical non compliance, medical stability at present and downtrending cardiac biomarkers will defer cardiac catheterization for now and proceed with stress test either Friday as inpatient or as outpatient. To be decided on Friday rounds -ECHO performed will review -Substance abuse counselling -Weight loss , lifestyle changes -Continue medical Rx -Will follow Diagnosis/Problems Diagnosis/Problems (1) Non-ST elevation myocardial infarction (NSTEMI) (2) PAD (peripheral artery disease) (3) COPD exacerbation (4) Congestive heart failure of unknown etiology (5) CHF exacerbation KACI RAY MD Mar 08, 2023 12:39
[2023-03-08 12:48] VITALS: BP 156/90
[2023-03-08 15:11] VITALS: BP 113/62
[2023-03-08] MEDS: LORazepam 0.5 MG TABLET PO PRN (17:36)
[2023-03-09] MEDS: LORazepam 0.5 MG TABLET PO PRN ×4 (03:53→20:32)
[2023-03-09 04:25] LABS: BASOPHILS # (AUTO) 0.1 10^3/uL (0.0-0.1); BASOPHILS % (AUTO) 1 % (0-10); EOSINOPHILS # (AUTO) 0.6 10^3/uL (0.0-0.3); EOSINOPHILS % (AUTO) 4 % (0-10); HEMATOCRIT 48 % (40-54); HEMOGLOBIN 16.1 g/dL (13.3-17.7); LYMPHOCYTES # (AUTO) 2.4 10^3/uL (1.0-4.0); LYMPHOCYTES % (AUTO) 15 % (12-44); MEAN CORPUSCULAR HEMOGLOBIN 32 pg (25-34); MEAN CORPUSCULAR HGB CONC 33 g/dL (32-36); MEAN CORPUSCULAR VOLUME 95 fL (80-99); MONOCYTES # (AUTO) 1.2 10^3/uL (0.0-1.0); MONOCYTES % (AUTO) 8 % (0-12); NEUTROPHILS # (AUTO) 11.1 10^3/uL (1.8-7.8); NEUTROPHILS % (AUTO) 72 % (42-75); PLATELET COUNT 236 10^3/uL (130-400); WHITE BLOOD COUNT 15.5 10^3/uL (4.3-11.0)
[2023-03-09 04:50] LABS: ALBUMIN 3.6 GM/DL (3.2-4.5)
[2023-03-09 04:51] LABS: CALCIUM 8.5 MG/DL (8.5-10.1)
[2023-03-09 04:53] LABS: TOTAL PROTEIN 6.7 GM/DL (6.4-8.2)
[2023-03-09 04:56] LABS: CREATININE SERUM 0.9 MG/DL (0.60-1.30); PHOSPHORUS 3.3 MG/DL (2.3-4.7)
[2023-03-09 04:59] LABS: MAGNESIUM 2.4 MG/DL (1.6-2.4)
[2023-03-09] MEDS: MAGNESIUM 1 GM/100 ML IVPB 100 ML IV SCH (05:12)
[2023-03-09] MEDS: POTASSIUM CHLORIDE 20 MEQ TABLET PO SCH (05:12)
[2023-03-09] MEDS: POTASSIUM CL 10MEQ/50ML IVPB 50 ML IV SCH (05:12)
--- NOTE | 2023-03-09 06:40 | Progress Note - Hospitalist ---
Subjective HPI/CC On Admission Date Seen by Provider: Mar 09, 2023 Time Seen by Provider: 11:00 Chief complaint: Shortness of breath with meth use HPI: This is a 37-year-old male known methamphetamine user with a history of CHF noncompliant with medication who presented to the ER with shortness of breath found to have volume overload and exacerbation of CHF with meth use. Currently he is stable and receiving IV Lasix. Cardiology consulted. He has obvious severe sleep apnea with severe hypoxia when he sleeping. Subjective/Events-last exam Patient about the same Requiring Ativan due to panic attack and meth withdrawal Reviewed meds and labs No falls Maintain on CPAP Objective Exam Vital Signs Vital Signs Date Time Temp Pulse Resp B/P (MAP) Pulse Ox O2 Delivery O2 Flow Rate FiO2 03/09/23 12:55 97 High Flow N/C 4.00 03/09/23 12:22 102 03/09/23 12:00 15 144/76 (93) 03/09/23 08:44 35.7 03/09/23 08:00 35 Capillary Refill : Less Than 3 Seconds General Appearance: No Apparent Distress, WD/WN, Chronically ill, Other (Asleep) Respiratory: Lungs Clear Cardiovascular: Regular Rate, Rhythm Results/Procedures Lab Laboratory Tests 03/09/23 03:53 Patient resulted labs reviewed. Assessment/Plan Assessment and Plan Assess & Plan/Chief Complaint Assessment: Acute hypoxic respiratory failure Exacerbation of CHF Methamphetamine use with withdrawal Obvious sleep apnea with hypoxia when sleeping Noncompliance Morbid obesity BMI 47 Plan: ICU Precedex if needed Cardiology consult appreciated Maintain CPAP LIVAN ROSE DO Mar 09, 2023 06:40
[2023-03-09] MEDS: FUROSEMIDE INJECTION 40 MG/4 ML VIAL IV SCH ×2 (06:44→16:56)
[2023-03-09] MEDS: ENOXAPARIN 150 MG/ML SYRINGE SQ SCH ×2 (06:44→19:19)
[2023-03-09] MEDS: DOCUSATE SODIUM 100 MG CAPSULE PO SCH ×2 (07:47→20:35)
[2023-03-09] MEDS: SENNOSIDES 8.6 MG TABLET PO SCH ×2 (07:47→20:35)
[2023-03-09] MEDS: ASPIRIN enteric coated 81MG TABLET PO SCH (07:53)
[2023-03-09 07:59] VITALS: BP 141/80
[2023-03-09] MEDS: RT-Ipratropium/Albuterol NEB 3 ML VIAL INH SCH ×2 (07:59→22:06)
--- NOTE | 2023-03-09 08:26 | Tele-ICU Progress Note ---
Subjective Date Seen by a Provider: Mar 09, 2023 Time Seen by a Provider: 08:26 Subjective/Events-last exam (Tele-ICU Physician , Progress Note ) Service provided via interactive audio and video telecommunications E-CARE system to a patient admitted to ICU bed in [facility]. Patient is seen today due to persistent need of ICU care Available chart/ vitals / labs / Images reviewed Video assessment done using teleICU camera, rest of exam as per RN Discussed with RN Events overnight : Afebrile hemodynamically stable Respiratory - 4l I/O = NEG Drips: Pressors- no Hospital course: 80F:- Syncope w Falls; Respiratory Failure; moderate PeriCardial Effusion; HypoNatremia; CHF; severe Aortic Stenosis; STEMI_CardioGenic Shock; Hepatic Congestion; Anaphylactic reaction to Contrast dye given for chest CTA. A/P Dispnea - was tx for 1 week with prednisone and br-dilators - ( no established dx of COPD , but smokes - CTA - NEG for pe , no pna - diuresis to cont - fluid restriction ( has almost 4 lL po intake ESTEBAN - suspected amd observed -on CPAP nightly here - to cont - sleep study as outpt NSTEMI likely to demand ischemia type II CHF on unknown etiology - cards consulted - follow recom - lovenox 150 q12 Suspectred COPD - was on sterooids - can increase fluid retention - monitor for now on nebs Leukocytosis - steroids iduced ?- follow Methamphetamine user - last dose - night prior to admission TBI 6 y ago Lines : , (Central Line Necessity Reviewed) Malhotra:void OG: Nutrition: Analgesia: Anxiety/ delirium VTE Prophylaxis: latonya 150 Stress Ulcer Prophylaxis: na Plans in collaboration with bedside consultants and IM MDs. Discussed with RN to reach out if any questions or concerns A total of 20 minutes of critical care time was devoted to this patient today, required to treat and/or prevent further deterioration of critical care condi tion ( as above ) . I am remotely monitoring this patient from another state. I am unable to do the bedside exam, and history/physical and pertinent information is taken from other notes in the computer and bedside staff. . Sepsis Event Evaluation Height, Weight, BMI Height: 5'8.00" Weight: 260lbs. 0.0oz. 117.990472we; 47.28 BMI Method:Stated Exam Exam Patient acknowledged, consented, and participated in this virtual visit which was conducted using real time audio/video Vital Signs Date Time Temp Pulse Resp B/P (MAP) Pulse Ox O2 Delivery O2 Flow Rate FiO2 03/09/23 08:00 101 0 129/82 (96) 94 NIV CPAP 35.00 03/09/23 07:54 NIV CPAP 35.00 03/09/23 07:00 106 03/09/23 07:00 111 30 149/109 (127) 90 High Flow N/C 4.00 03/09/23 06:00 91 21 136/79 (98) 100 High Flow N/C 4.00 03/09/23 05:00 98 27 130/55 (80) 95 High Flow N/C 4.00 03/09/23 04:00 117 10 100 High Flow N/C 4.00 03/09/23 04:00 36.0 03/09/23 03:10 100 High Flow N/C 4.00 03/09/23 03:00 105 23 97/70 (79) 100 High Flow N/C 4.00 03/09/23 02:00 70 14 153/81 (105) 94 High Flow N/C 4.00 03/09/23 01:00 103 23 142/85 (104) 100 High Flow N/C 4.00 03/09/23 00:45 112 03/09/23 00:00 111 28 135/71 (92) 95 High Flow N/C 4.00 03/08/23 23:22 36.2 115 21 100 High Flow N/C 4.00 03/08/23 23:20 100 High Flow N/C 4.00 03/08/23 23:00 108 29 123/85 (98) 96 High Flow N/C 4.00 03/08/23 22:00 112 23 121/70 (87) 97 High Flow N/C 4.00 03/08/23 21:46 96 High Flow N/C 4.00 03/08/23 21:00 108 27 107/96 (100) 99 High Flow N/C 4.00 03/08/23 20:29 High Flow N/C 4.00 03/08/23 20:00 113 30 129/90 (103) 96 NIV CPAP 35.00 03/08/23 19:47 35.7 03/08/23 19:40 NIV CPAP 35.00 03/08/23 19:30 94 High Flow N/C 4.00 03/08/23 19:00 36.5 99 26 109/39 (62) 95 High Flow N/C 4.00 03/08/23 19:00 106 03/08/23 18:00 106 23 127/95 (105) 96 NIV CPAP 35.00 03/08/23 17:00 106 27 127/82 (93) 98 NIV CPAP 35.00 03/08/23 16:16 NIV CPAP 35.00 03/08/23 16:03 98 NIV CPAP 35 03/08/23 16:00 105 29 139/84 (98) 99 High Flow N/C 4.00 03/08/23 15:59 35.3 03/08/23 15:29 High Flow N/C 4.00 03/08/23 15:11 101 18 92 35.00 03/08/23 15:00 102 22 113/62 (74) 92 NIV CPAP 35.00 03/08/23 14:00 107 31 108/72 (78) 95 NIV CPAP 35.00 03/08/23 13:00 112 28 101/59 (73) 93 NIV CPAP 35.00 03/08/23 12:59 NIV CPAP 35.00 03/08/23 12:51 97 NIV Bilevel 35 03/08/23 12:48 102 24 96 35.00 03/08/23 12:24 104 03/08/23 12:17 36.3 High Flow N/C 4.00 03/08/23 12:00 101 26 156/90 (114) 96 NIV Bilevel 35.00 03/08/23 11:55 99 23 96 35.00 03/08/23 11:47 NIV Bilevel 35.00 03/08/23 11:00 62 8 130/56 (79) 89 High Flow N/C 4.00 03/08/23 10:00 96 16 124/75 (88) 91 High Flow N/C 4.00 03/08/23 09:00 105 18 139/83 (93) 94 High Flow N/C 4.00 I & O 03/09/23 06:59 Intake Total 3205 ml Output Total 6625 ml Balance -3420 ml Height & Weight Height: 5'8.00" Weight: 260lbs. 0.0oz. [id number]; 47.28 BMI Method:Stated General Appearance: No Apparent Distress, Chronically ill, Obese, Other (Sleeping deeply) Respiratory: Lungs Clear, Normal Breath Sounds Cardiovascular: Regular Rate, Rhythm Capillary Refill: Less Than 3 Seconds Peripheral Pulses: 3+ Carotid (R), 3+ Carotid (L), 3+ Femoral (R), 3+ Femoral (L), 3+ Dorsalis Pedis (R), 3+ Left Dors-Pedis (L), 3+ Radial Pulses (R), 3+ Radial Pulses (L) Gastrointestinal: other (1+ pitting edema in abdomen) Results Lab Laboratory Tests 03/07/23 13:20 03/08/23 03:37 03/09/23 03:53 Assessment/Plan Assessment/Plan 1 MARTIN HOFFMAN MD Mar 09, 2023 08:26
--- NOTE | 2023-03-09 12:12 | Progress Note ---
Standard Progress Note Progress Notes/Assess & Plan Date Seen by a Provider: Mar 09, 2023 Time Seen by a Provider: 08:50 Progress/Assessment & Plan Patient comfortable in bed laying flat using CPAP , hemodynamically stable in no acute distress at present assessment: COPD exacerbation NSTEMI secondary to demand ischemia type II Obesity, DM Substance abuse Medical non compliance Plan 03/09: Keep patient on daily aspirin 81 mg alongside statin continue COPD management per primary team Will plan for medical management of type II NSTEMI at this time as we attempt to increase medical compliance on patient . If patient able to commit to taking his medications and having his medical follow up then would bring as outpatient for elective cardiac cath in next month when acute COPD process is stabilized From a cardiac perspective probable stable for discharge 03/10 but will follow progress Final Diagnosis COPD exacerbation Type II NSTEMI from demand ischemia CHF unknown type PAD Substance abuse Medical non compliance KACI RAY MD Mar 09, 2023 12:12
[2023-03-09 18:54] VITALS: BP 128/72
[2023-03-09 22:06] VITALS: BP 141/74
[2023-03-10 04:57] LABS: BASOPHILS # (AUTO) 0.1 10^3/uL (0.0-0.1); BASOPHILS % (AUTO) 1 % (0-10); EOSINOPHILS # (AUTO) 0.5 10^3/uL (0.0-0.3); EOSINOPHILS % (AUTO) 3 % (0-10); HEMATOCRIT 50 % (40-54); HEMOGLOBIN 16.5 g/dL (13.3-17.7); LYMPHOCYTES # (AUTO) 1.9 10^3/uL (1.0-4.0); LYMPHOCYTES % (AUTO) 11 % (12-44); MEAN CORPUSCULAR HEMOGLOBIN 31 pg (25-34); MEAN CORPUSCULAR HGB CONC 33 g/dL (32-36); MEAN CORPUSCULAR VOLUME 95 fL (80-99); MEAN PLATELET VOLUME 9.1 fL (9.0-12.2); MONOCYTES # (AUTO) 1.1 10^3/uL (0.0-1.0); MONOCYTES % (AUTO) 6 % (0-12); NEUTROPHILS # (AUTO) 13.3 10^3/uL (1.8-7.8); NEUTROPHILS % (AUTO) 78 % (42-75); PLATELET COUNT 242 10^3/uL (130-400)
[2023-03-10 05:38] LABS: ALBUMIN 3.7 GM/DL (3.2-4.5); BILIRUBIN,TOTAL 1.6 MG/DL (0.1-1.0); CALCIUM 8.9 MG/DL (8.5-10.1); CREATININE SERUM 0.9 MG/DL (0.60-1.30); MAGNESIUM 2.1 MG/DL (1.6-2.4); PHOSPHORUS 2.9 MG/DL (2.3-4.7); POTASSIUM 4.2 MMOL/L (3.6-5.0); TOTAL PROTEIN 6.8 GM/DL (6.4-8.2)
[2023-03-10] MEDS: POTASSIUM CL 10MEQ/50ML IVPB 50 ML IV SCH (05:42)
[2023-03-10] MEDS: POTASSIUM CHLORIDE 20 MEQ TABLET PO SCH (05:43)
[2023-03-10] MEDS: MAGNESIUM 1 GM/100 ML IVPB 100 ML IV SCH (05:43)
[2023-03-10] MEDS: ENOXAPARIN 150 MG/ML SYRINGE SQ SCH (06:37)
[2023-03-10] MEDS: RT-Ipratropium/Albuterol NEB 3 ML VIAL INH SCH (06:37)
[2023-03-10] MEDS: FUROSEMIDE INJECTION 40 MG/4 ML VIAL IV SCH (06:37)
--- NOTE | 2023-03-10 07:06 | Diagnostic Imaging Report ---
INDICATION: Shortness of breath. COMPARISON is made with prior exam of 03/08/2023. FINDINGS: There is cardiomegaly and mild venous congestion. There is a right basilar consolidation. There is no pleural fusion or pneumothorax. The mediastinum is unremarkable. IMPRESSION: Right basilar alveolar consolidation suspect for pneumonia. Cardiomegaly and some central pulmonary venous congestion. Dictated by: Dictated on workstation # [id number]
--- NOTE | 2023-03-10 07:10 | Progress Note - Hospitalist ---
Subjective HPI/CC On Admission Date Seen by Provider: Mar 10, 2023 Time Seen by Provider: 09:00 Chief complaint: Shortness of breath with meth use HPI: This is a 37-year-old male known methamphetamine user with a history of CHF noncompliant with medication who presented to the ER with shortness of breath found to have volume overload and exacerbation of CHF with meth use. Currently he is stable and receiving IV Lasix. Cardiology consulted. He has obvious severe sleep apnea with severe hypoxia when he sleeping. Objective Exam Vital Signs Vital Signs Date Time Temp Pulse Resp B/P (MAP) Pulse Ox O2 Delivery O2 Flow Rate FiO2 03/10/23 12:00 115 14 87/54 (65) 100 High Flow N/C 4.00 03/10/23 12:00 36.7 03/10/23 03:25 35 Capillary Refill : Less Than 3 Seconds Results/Procedures Lab Laboratory Tests 03/10/23 04:00 Patient resulted labs reviewed. Assessment/Plan Assessment and Plan Assess & Plan/Chief Complaint Assessment: Acute hypoxic respiratory failure Exacerbation of CHF Methamphetamine use with withdrawal Obvious sleep apnea with hypoxia when sleeping Noncompliance Morbid obesity BMI 47 Plan: ICU Precedex if needed Cardiology consult appreciated Maintain CPAP LIVAN ROSE DO Mar 10, 2023 07:10
[2023-03-10] MEDS: LORazepam 0.5 MG TABLET PO PRN (09:28)
[2023-03-10] MEDS: ASPIRIN enteric coated 81MG TABLET PO SCH (09:28)
[2023-03-10] MEDS: DOCUSATE SODIUM 100 MG CAPSULE PO SCH (09:29)
[2023-03-10] MEDS: SENNOSIDES 8.6 MG TABLET PO SCH (09:29)
--- NOTE | 2023-03-10 10:17 | Cardiology Progress Note ---
Subjective Date Seen by Provider: Mar 10, 2023 Time Seen by Provider: 10:14 Subjective/Events-last exam Patient was seen at bedside, laying down comfortably, feeling better, breathing better. Objective-Cardiology Exam Last Set of Vital Signs Vital Signs 03/10/23 03/10/23 03/10/23 03:25 08:13 10:00 Temp 36.3 Pulse 104 Resp 13 B/P (MAP) 121/70 (87) Pulse Ox 90 O2 Delivery High Flow N/C O2 Flow Rate 4.00 FiO2 35 I&O Intake and Output 03/09/23 23:59 Intake Total 2635 ml Output Total 5100 ml Balance -2465 ml Intake Oral 2635 ml IV Total 0 ml Output Urine Total 5100 ml # Bowel Movements 3 General: Alert, Oriented X3, Cooperative HEENT: Atraumatic, PERRLA Neck: Supple, No JVD, No Thyromegaly Lungs: Clear to Auscultation, Normal Air Movement Heart: Regular Rate, Normal S1, Normal S2, No Murmurs Abdomen: Normal Bowel Sounds, Soft, No Tenderness, No Hepatosplenomegaly, No Masses Extremities: No Clubbing, No Cyanosis, No Edema, Normal Pulses, No Tenderness/Swelling Skin: No Rashes, No Breakdown, No Significant Lesion Neuro: Normal Gait, Normal Speech, Strength at 5/5 X4 Ext, Normal Tone, Sensation Intact Psych/Mental Status: Mental Status NL, Mood NL Results Lab Laboratory Tests 03/10/23 04:00 A/P-Cardiology Admission Diagnosis Shortness of breath Acute exacerbation of COPD Type II TX Coronary artery disease Substance abuse Assessment/Plan Shortness of breath, acute exacerbation of COPD Breathing better and feeling better at this time. Continue to monitor Non-ST elevation myocardial infarction, type II TX Probably secondary to hypoxemia with exacerbation of COPD Questionable underlying coronary artery disease, Planning to evaluate stress test as an outpatient. History of substance abuse. Educated on avoiding illicit drugs BMI 46, discussed weight loss. J CARLOS SYLVESTER MD Mar 10, 2023 10:17
[2023-03-10] MEDS ORDERED: POTA10CA84 PO (12:55)
[2023-03-10] MEDS ORDERED: ATOR40TA PO (12:55)
[2023-03-10] MEDS ORDERED: FURO-124 PO (12:55)
--- NOTE | 2023-03-10 12:56 | Discharge Summary ---
Discharge Summary Hospital Course Was the Problem List Reviewed?: Yes Problems/Dx: (1) PAD (peripheral artery disease) (2) COPD exacerbation (3) Congestive heart failure of unknown etiology (4) CHF exacerbation Hospital Course Date of Admission: Mar 09, 2023 at 15:54 Admission Diagnosis : Family Physician/Provider: No,Local Physician Date of Discharge: 03/10/23 Discharge Diagnosis: [ ] Hospital Course: Patient was admitted following congestive heart failure exacerbation and noncompliance with meth use. Elevated troponin was not an NSTEMI. Due to methamphetamine use and noncompliance patient has a poor prognosis long-term. Severe sleep apnea was noted bed he refuses to proceed on with sleep study. cardiology signed off and patient was deemed stable for discharge. Labs and Pending Lab Test: Laboratory Tests 03/09/23 17:58: Troponin I < 0.028 03/09/23 23:57: Troponin I 0.040H 03/10/23 04:00: Troponin I 0.056H, White Blood Count 17.0H, Red Blood Count 5.28, Hemoglobin 16.5, Hematocrit 50, Mean Corpuscular Volume 95, Mean Corpuscular Hemoglobin 31, Mean Corpuscular Hemoglobin Concent 33, Red Cell Distribution Width 13.2, Platelet Count 242, Mean Platelet Volume 9.1, Immature Granulocyte % (Auto) 1, Neutrophils (%) (Auto) 78H, Lymphocytes (%) (Auto) 11L, Monocytes (%) (Auto) 6, Eosinophils (%) (Auto) 3, Basophils (%) (Auto) 1, Neutrophils # (Auto) 13.3H, Lymphocytes # (Auto) 1.9, Monocytes # (Auto) 1.1H, Eosinophils # (Auto) 0.5H, Basophils # (Auto) 0.1, Immature Granulocyte # (Auto) 0.2H, Sodium Level 138, Potassium Level 4.2, Chloride Level 102, Carbon Dioxide Level 25, Anion Gap 11, Blood Urea Nitrogen 15, Creatinine 0.90, Estimat Glomerular Filtration Rate 111, BUN/Creatinine Ratio 17, Glucose Level 108H, Calcium Level 8.9, Corrected Calcium 9.1, Phosphorus Level 2.9, Magnesium Level 2.1, Total Bilirubin 1.6H, Aspartate Amino Transf (AST/SGOT) 19, Alanine Aminotransferase (ALT/SGPT) 24, Alkaline Phosphatase 102, Total Protein 6.8, Albumin 3.7 03/10/23 11:50: Troponin I < 0.028 Microbiology 03/07/23 MRSA Screen - Final, Complete MRSA not isolated Home Meds Active Potassium Chloride 10 Meq Capsule.er 10 Meq PO DAILY Lasix (Furosemide) 40 Mg Tablet 40 Mg PO DAILY Lipitor (Atorvastatin Calcium) 40 Mg Tablet 40 Mg PO HS Reported Haloperidol Decanoate Unknown Strength Vial Unknown Dose monthly injection- had 03/07/23 Ibuprofen 800 Mg Tablet 800 Mg PO Q4H PRN Aspirin 81 Mg Tab.chew 81 Mg PO DAILY Hydroxyzine HCl 50 Mg Tablet 50 Mg PO BID Clonidine HCl 0.1 Mg Tablet 0.1 Mg PO BID Austedo (Deutetrabenazine) 12 Mg Tablet 12 Mg PO BID Sertraline HCl 100 Mg Tablet 100 Mg PO DAILY Lisinopril 10 Mg Tablet 10 Mg PO DAILY Assessment/Pt Instructions PCP in 1 week Discharge Planning: <30 minutes discharge planning Discharge Instructions Discharge Diet: No Restrictions Discharge Physical Examination Vital Signs Vital Signs Date Time Temp Pulse Resp B/P (MAP) Pulse Ox O2 Delivery O2 Flow Rate FiO2 03/10/23 12:00 115 14 87/54 (65) 100 High Flow N/C 4.00 03/10/23 12:00 36.7 03/10/23 03:25 35 General Appearance: No Apparent Distress, WD/WN Allergies: Coded Allergies: No Known Drug Allergies (Unverified , 08/21/16) Discharge Summary Date of Admission Mar 09, 2023 at 15:54 Date of Discharge Discharge Date: Mar 10, 2023 Admission Diagnosis Assessment: Acute hypoxic respiratory failure Exacerbation of CHF Methamphetamine use with withdrawal Obvious sleep apnea with hypoxia when sleeping Noncompliance Morbid obesity BMI 47 Plan: ICU Precedex if needed Cardiology consult appreciated Discharge Diagnosis Assessment: Acute hypoxic respiratory failure Exacerbation of CHF Methamphetamine use with withdrawal Obvious sleep apnea with hypoxia when sleeping Noncompliance Morbid obesity BMI 47 Plan: ICU Precedex if needed Cardiology consult appreciated Maintain CPAP (1) Non-ST elevation myocardial infarction (NSTEMI) (2) PAD (peripheral artery disease) (3) COPD exacerbation (4) Congestive heart failure of unknown etiology (5) CHF exacerbation LIVAN ROSE DO Mar 10, 2023 12:56
== END 2023-03-10 13:15 | disposition home or self-care (01) | DRG 280 ==
LOC: EDUNIT# 13:12 → ER 13:14 → ICU 16:48 → OBSVTOIN 03-09 15:54
PROVIDERS: ADMIT Internal Medicine; ATTEND Internal Medicine
PROC: 5A0945A Assistance with Respiratory Ventilation, 24-96 Consecutive Hours, High Flow/Velocity Cannula (ICD-10-PCS; principal; 2023-03-09)
PROC: 5A09357 Assistance with Respiratory Ventilation, Less than 24 Consecutive Hours, Continuous Positive Airway Pressure (ICD-10-PCS; 2023-03-09)
DX: I11.0 Hypertensive heart disease with heart failure (principal); J96.01 Acute respiratory failure with hypoxia; I21.A1 Myocardial infarction type 2; F15.93 Other stimulant use, unspecified with withdrawal; Z68.42 Body mass index [BMI] 45.0-49.9, adult; J44.1 Chronic obstructive pulmonary disease with (acute) exacerbation; I50.9 Heart failure, unspecified; R77.8 Other specified abnormalities of plasma proteins; G47.33 Obstructive sleep apnea (adult) (pediatric); Z91.148 Patient's other noncompliance with medication regimen for other reason; E66.01 Morbid (severe) obesity due to excess calories; J43.9 Emphysema, unspecified; K21.9 Gastro-esophageal reflux disease without esophagitis; F20.9 Schizophrenia, unspecified; Z87.820 Personal history of traumatic brain injury; Z87.891 Personal history of nicotine dependence; D72.829 Elevated white blood cell count, unspecified; E11.51 Type 2 diabetes mellitus with diabetic peripheral angiopathy without gangrene; I25.10 Atherosclerotic heart disease of native coronary artery without angina pectoris
CPT/HCPCS: 36415; 71045; 71046; 71275; 80053; 80061; 80306; 83036; 83735; 83880; 84100; 84443; 84484; 85007; 85025; 85027; 85379; 87081; 93306; 94640; 94660; G0378